=== PATIENT | male | born 1975 | race African-American/Black ===

== ENCOUNTER 2016-06-28 21:31 | Inpatient (IN) | payer MEDICAID ==
[~2016-06-28] VITALS: Ht 180.3 cm; Wt 81.0 kg
[2016-06-28 21:35] VITALS: O2SAT 100
[2016-06-28] MEDS ORDERED: MIDAZOLAM HCL 5 MG/ML VIAL (1 ML) ONE (21:38)
[2016-06-28] MEDS ORDERED: MORPHINE SULFATE 8 MG/ML INJ ONE (21:38)
[2016-06-28 21:45] VITALS: O2SAT 100
[2016-06-28] MEDS ORDERED: fentaNYL DRIP 250 ML ONE (21:50)
[2016-06-28] MEDS ORDERED: MIDAZOLAM 100 MG/ML INJ 100 ML ONE (21:50)
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
[2016-06-28 21:55] VITALS: O2SAT 100
[2016-06-28] MEDS ORDERED: HEPARIN SODIUM - SQ 10,000 UNITS/ML VIAL ONE (21:56)
[2016-06-28 22:10] LABS: I-STAT POTASSIUM 3.4 MMOL/L (3.5-4.9); I-STAT SODIUM 139 MMOL/L (138-146)
[2016-06-28 22:13] LABS: AUTOMATED NEUTROPHIL # 2.3 TH/MM3 (1.8-7.7); BASOPHIL % 0.4 % (0.0-2.0); EOSINOPHIL # 0.2 TH/MM3 (0-0.4); EOSINOPHIL % 3.3 % (0.0-4.0); HEMATOCRIT 34.5 % (39.0-51.0); HEMO FLAGS DIFF FINAL; LYMPH % 43.4 % (9.0-44.0); LYMPHOCYTE # 2.4 TH/MM3 (1.0-4.8); MEAN CELL VOLUME 88.6 FL (80.0-100.0); MEAN CORPUSCULAR HEMOGLOBIN 30.3 PG (27.0-34.0); MEAN CORPUSCULAR HGB CONC 34.1 % (32.0-36.0); MONO % 10.7 % (0.0-8.0); NEUT % 42.2 % (16.0-70.0); PLATELET COUNT 183 TH/MM3 (150-450); RED BLOOD COUNT 3.89 MIL/MM3 (4.50-5.90); RED CELL DISTRIBUTION WIDTH 13.5 % (11.6-17.2); WHITE BLOOD COUNT 5.5 TH/MM3 (4.0-11.0)
[2016-06-28 22:20] VITALS: O2SAT 100
[2016-06-28 22:30] LABS: APTT (PATIENT) 24.3 SEC (24.3-30.1); INTERNATIONAL NORMALIZED RATIO 1.1 RATIO; PROTHROMBIN TIME - PATIENT 12.3 SEC (9.8-11.6)
[2016-06-28] MEDS ORDERED: ROCURONIUM INJ 50 MG/5 ML VIAL ONE ×2 (22:34→22:59)
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
[2016-06-28] MEDS ORDERED: IOHEXOL 350 MG/ML 10 ML VIAL (for RAD DIAG) IV ONE (22:51)
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
[2016-06-28] MEDS ORDERED: ceFAZolin 2 GM PREMIX 50 ML IV STA (23:11)
[2016-06-28] MEDS ORDERED: DIPHTH/TETANUS/ACEL PERTUSSIS (BOOSTER) 0.5 ML VIAL/PFS IM ONE (23:11)
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
[2016-06-28 23:15] VITALS: BP 140/80; PULSE 96; PULSE 97; RESP 16; TEMP 95.7; O2SAT 98
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
[2016-06-28] MEDS ORDERED: LORazepam 2 MG/ML VIAL IV PRN (23:30)
[2016-06-28] MEDS ORDERED: SODIUM CHLORIDE 0.9% FLUSH 5 ML FLUSH IV FLUSH PRN (23:30)
[2016-06-28] MEDS ORDERED: MORPHINE SULFATE 4 MG/ML INJ IV PRN (23:30)
[2016-06-28] MEDS ORDERED: MISCELLANEOUS NURSING INFORMATION XX SCH (23:30)
[2016-06-28] MEDS ORDERED: METOCLOPRAMIDE HCL 10 MG/2 ML VIAL IV PRN (23:30)
[2016-06-28] MEDS ORDERED: CHLORHEXIDINE GLUCONATE 2 % 1 PACK (2 CLOTHS) TOP PRN (23:30)
[2016-06-28] MEDS ORDERED: SUCCINYLCHOLINE CHLORIDE 200 MG/10 ML VIAL ONE (23:39)
[2016-06-28] MEDS ORDERED: ETOMIDATE 20 MG/10 ML VIAL ONE (23:40)
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
--- NOTE | 2016-06-28 23:54 | PD.OP ---
cc: Juvenal Sher MD Operative Report Date of Surgery: Jun 28, 2016 Preoperative Diagnosis: Bilateral pneumothorax Postoperative Diagnosis: Same plus left hemopneumothorax Procedure: Insertion of bilateral tube thoracostomies Anesthesia: Sedation with local 1% Xylocaine Surgeon: Juvenal Sher Deputy Coroner(s): None Operation and Findings: 450 cc of johanny dark red blood removed through chest tube on left chest Patient prepped draped usual sterile fashion adequate local anesthetic was induced left chest tube was placed first on the level of the areola approximately 450 cc of dark red blood came out under pressure when the tube was placed into the left chest cavity. The tube was then secured using 0 silk. Tension was then placed to the right chest. An incision again was made in neurologic fashion at the level of the areola and all the tube was placed into the chest 32 Turkish chest tubes were used on both sides. Was then advanced the wish of air was noted. The tube was then secured using a 0 silk. Chest x-ray taken showed good placement of both tubes. Patient tolerated procedure well. Juvenal Sher MD Jun 28, 2016 23:54
[2016-06-29] VITALS (26 sets, daily range): BP systolic 75–130; BP diastolic 49–62; PULSE 62–112; RESP 16–23; TEMP 94.8–101.8; O2SAT 94–100
[2016-06-29] LABS: BLOOD, URINE NEG (NEG); GLUCOSE,URINE NEG (NEG); KETONE, URINE NEG (NEG); MUCUS URINE FEW /lpf (OCC); NITRITE,URINE NEG (NEG); PH, URINE 6.5 (5.0-8.5); SQUAMOUS EPITHELIAL CELL URINE <1 /hpf (0-5); URINE COLOR LIGHT-YELLOW (YELLW/STRAW)
[2016-06-29 00:01] LABS: COMMENT (UR) CATH-CULT NOT IND; CULTURE IF INDICATED CATH CULTURE NOT IND
[2016-06-29 00:09] LABS: AMPHETAMINE, URINE NEG (NEG); BARBITURATES, URINE NEG (NEG); COCAINE, URINE NEG (NEG)
[2016-06-29 00:18] LABS: BLOOD GAS BASE EXCESS -4.7 mmol/L (-2-2); BLOOD GAS CARBOXYHEMOGLOBIN 3.5 % (0-4); BLOOD GAS HCO3 20 mmol/L (22-26); BLOOD GAS METHEMOGLOBIN 0.7 % (0-2); BLOOD GAS O2 HGB SATURATION 94 % (90-100); BLOOD GAS OXYGEN CONTENT 16.2 Vol % (12.0-20.0); BLOOD GAS PCO2 34 mmHg (38-42); BLOOD GAS PO2 110 mmHg (61-120); BLOOD GAS TOTAL HGB 12.2 G/DL (12.0-16.0); TEMP CORR TO 98.6
[2016-06-29 00:19] LABS: CRITICAL VALUE NO; DRAW SITE RT RADIAL; FIO2 100 %; NUMBER OF ARTERIAL PUNCTURES 1; OXYGEN DEVICE VENTILATOR; STAT NO; VENT SETTINGS AC550/16/PEEP10
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
--- NOTE | 2016-06-29 00:50 | PD.PROCEDR ---
Procedure Note Procedure ARTERIAL LINE PLACEMENT Date:06/29/2016 Time: 1205 Indication: Hemodynamic monitoring A time-out was completed verifying correct patient, procedure, site, positioning , and special equipment if applicable. Allens test was performed to ensure adequate perfusion. The patients right wrist was prepped and draped in sterile fashion. 1% Lidocaine was used to anesthetize the area. A 20G Arrow arterial line was introduced into the radial artery. The catheter was threaded over the guide wire and the needle was removed with appropriate pulsatile blood return. The catheter was then sutured in place to the skin and a sterile dressing applied. Perfusion to the extremity distal to the point of catheter insertion was checked and found to be adequate. Estimated Blood Loss: 0.5ml The patient tolerated the procedure well and there were no complications. Issac Chamorro MD Jun 29, 2016 00:50
[2016-06-29 00:53] LABS: HEMATOCRIT 36.7 % (39.0-51.0); MEAN CELL VOLUME 88.3 FL (80.0-100.0); MEAN CORPUSCULAR HEMOGLOBIN 30.1 PG (27.0-34.0); MEAN CORPUSCULAR HGB CONC 34.1 % (32.0-36.0); PLATELET COUNT 134 TH/MM3 (150-450); RED BLOOD COUNT 4.16 MIL/MM3 (4.50-5.90); RED CELL DISTRIBUTION WIDTH 13.2 % (11.6-17.2); REVIEW FLAG FINAL
[2016-06-29 01:13] LABS: ALT (GPT) 16 U/L (12-78); ANION GAP 11 MEQ/L (5-15); AST (GOT) 16 U/L (15-37); BICARBONATE 23.7 MEQ/L (21.0-32.0); BLOOD UREA NITROGEN 4 MG/DL (7-18); CHLORIDE 104 MEQ/L (98-107); GLOMERULAR FILTRATION RATE 73 ML/MIN (>89); POTASSIUM 3.1 MEQ/L (3.5-5.1); SODIUM (NA) 139 MEQ/L (136-145)
[2016-06-29 01:15] LABS: ALKALINE PHOSPHATASE 85 U/L (45-117); TOTAL BILIRUBIN ADULT 0.6 MG/DL (0.2-1.0)
[2016-06-29] MEDS: SODIUM CHLOR 0.9% 1000 ML INJ 1,000 ML IV SCH ×4 (01:23→20:10)
[2016-06-29] MEDS: DOCUSATE SODIUM 100 MG/10 ML UDC G-TUBE SCH ×3 (01:23→20:11)
[2016-06-29] MEDS: CHLORHEXIDINE GLUCONATE 2 % 1 PACK (2 CLOTHS) TOP SCH (03:59)
[2016-06-29] MEDS: ALBUMIN HUMAN 25% 12.5 GM/50 ML BAGP IV SCH ×2 (04:30→08:43)
[2016-06-29 04:32] LABS: AUTOMATED NEUTROPHIL # 8.1 TH/MM3 (1.8-7.7); BASOPHIL % 0.4 % (0.0-2.0); EOSINOPHIL % 0.1 % (0.0-4.0); HEMATOCRIT 38.6 % (39.0-51.0); HEMO FLAGS DIFF FINAL; LYMPH % 9.2 % (9.0-44.0); LYMPHOCYTE # 0.9 TH/MM3 (1.0-4.8); MEAN CELL VOLUME 84.9 FL (80.0-100.0); MEAN CORPUSCULAR HEMOGLOBIN 29.5 PG (27.0-34.0); MEAN CORPUSCULAR HGB CONC 34.7 % (32.0-36.0); MONO % 6.5 % (0.0-8.0); NEUT % 83.8 % (16.0-70.0); PLATELET COUNT 122 TH/MM3 (150-450); RED BLOOD COUNT 4.55 MIL/MM3 (4.50-5.90); RED CELL DISTRIBUTION WIDTH 14.7 % (11.6-17.2); WHITE BLOOD COUNT 9.6 TH/MM3 (4.0-11.0)
[2016-06-29 04:57] LABS: ANION GAP 11 MEQ/L (5-15); AST (GOT) 21 U/L (15-37); BICARBONATE 24.1 MEQ/L (21.0-32.0); BLOOD UREA NITROGEN 6 MG/DL (7-18); CHLORIDE 108 MEQ/L (98-107); GLOMERULAR FILTRATION RATE 67 ML/MIN (>89); POTASSIUM 3.2 MEQ/L (3.5-5.1); SODIUM (NA) 143 MEQ/L (136-145)
[2016-06-29 04:59] LABS: ALKALINE PHOSPHATASE 76 U/L (45-117); ALT (GPT) 18 U/L (12-78); TOTAL BILIRUBIN ADULT 0.8 MG/DL (0.2-1.0)
[2016-06-29] MEDS ORDERED: POTASSIUM CL 40 MEQ/30 ML LIQ UDC PO/TUBE PRN ×2 (07:45)
[2016-06-29] MEDS ORDERED: MAGNESIUM SULFATE INJ 4 GM in SODIUM CHLORIDE 0.9% INJ 92 ML IV PRN (07:45)
[2016-06-29] MEDS ORDERED: POTASSIUM PHOSPHATE MONOBASIC 500 MG TAB PO/TUBE PRN (07:45)
[2016-06-29] MEDS ORDERED: MAGNESIUM SULFATE INJ 2 GM in SODIUM CHLORIDE 0.9% INJ 96 ML IV PRN (07:45)
[2016-06-29] MEDS ORDERED: SODIUM PHOSPHATE INJ 30 MMOL in SODIUM CHLOR 0.9% 250 ML INJ 240 ML IV PRN (07:45)
[2016-06-29] MEDS ORDERED: POTASSIUM PHOSPHATE MONOBASIC 500 MG TAB PO PRN (07:45)
[2016-06-29] MEDS ORDERED: POTASSIUM CHLOR 20 MEQ PREMIX 100 ML IV PRN ×2 (07:45)
[2016-06-29] MEDS ORDERED: POTASSIUM CHLOR 40 MEQ PREMIX 100 ML IV PRN ×2 (07:45)
[2016-06-29] MEDS ORDERED: MAGNESIUM OXIDE 400 MG TAB PO PRN (07:45)
[2016-06-29] MEDS: CHLORHEXIDINE 0.12% (ORAL KIT) 15 ML CUP MT SCH ×2 (08:00→20:11)
[2016-06-29] MEDS: MAGNESIUM HYDROXIDE SUSP 30 ML CUP PO SCH (08:35)
[2016-06-29] MEDS: ARTIFICIAL TEARS OPTH SOLN 15 ML BTL EACH EYE SCH ×3 (08:41→18:02)
[2016-06-29] MEDS: fentaNYL DRIP 250 ML IV SCH ×2 (08:42→23:20)
[2016-06-29] MEDS: FAMOTIDINE 20 MG/2 ML VIAL IV PUSH SCH ×2 (08:42→20:11)
[2016-06-29] MEDS: MIDAZOLAM 100 MG/ML INJ 100 ML IV SCH ×2 (08:42→23:19)
[2016-06-29] MEDS: SODIUM CHLORIDE 0.9% FLUSH 5 ML FLUSH IV FLUSH SCH ×2 (08:43→20:12)
[2016-06-29] MEDS: ENOXAPARIN SODIUM 40 MG/0.4 ML SYRINGE SQ SCH (10:13)
[2016-06-29] MEDS: POTASSIUM PHOSPHATE INJ 30 MMOL in SODIUM CHLOR 0.9% 250 ML INJ 250 ML IV PRN (10:13)
[2016-06-29 10:40] LABS: BLOOD GAS BASE EXCESS -1.7 mmol/L (-2-2); BLOOD GAS CARBOXYHEMOGLOBIN 1.5 % (0-4); BLOOD GAS HCO3 21 mmol/L (22-26); BLOOD GAS METHEMOGLOBIN 0.8 % (0-2); BLOOD GAS O2 HGB SATURATION 97 % (90-100); BLOOD GAS OXYGEN CONTENT 18.1 Vol % (12.0-20.0); BLOOD GAS PCO2 29 mmHg (38-42); BLOOD GAS PO2 119 mmHg (61-120); BLOOD GAS TOTAL HGB 13.2 G/DL (12.0-16.0); CRITICAL VALUE NO; OXYGEN DEVICE VENT; TEMP CORR TO 98.6
[2016-06-29 10:41] LABS: DRAW SITE ALINE; FIO2 45 %; STAT NO; VENT SETTINGS AC/650/16/5PEEP
[2016-06-29] MEDS: ACETAMINOPHEN 325 MG TAB PO PRN ×2 (12:51→20:11)
[2016-06-29] MEDS ORDERED: SODIUM CHLOR 0.9% 1000 ML INJ 1,000 ML IV ONE (14:15)
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
[2016-06-29 22:27] LABS: POTASSIUM 3.3 MEQ/L (3.5-5.1)
[2016-06-29] MEDS: RESP: ALBUTEROL 2.5 MG/IPRATROPIUM 0.5 MG NEB (SCH) NEB (22:28)
[2016-06-30] VITALS (18 sets, daily range): BP systolic 97–124; BP diastolic 51–68; PULSE 68–100; RESP 14–16; TEMP 98.4–100.4; O2SAT 94–100
[2016-06-30] MEDS: SODIUM CHLOR 0.9% 1000 ML INJ 1,000 ML IV SCH ×4 (03:22→22:27)
[2016-06-30] MEDS: CHLORHEXIDINE GLUCONATE 2 % 1 PACK (2 CLOTHS) TOP SCH (03:22)
[2016-06-30 03:51] LABS: HEMATOCRIT 37.4 % (39.0-51.0); MEAN CELL VOLUME 85.3 FL (80.0-100.0); MEAN CORPUSCULAR HEMOGLOBIN 29.6 PG (27.0-34.0); MEAN CORPUSCULAR HGB CONC 34.7 % (32.0-36.0); PLATELET COUNT 100 TH/MM3 (150-450); RED BLOOD COUNT 4.38 MIL/MM3 (4.50-5.90); RED CELL DISTRIBUTION WIDTH 14.7 % (11.6-17.2); REVIEW FLAG FINAL; WHITE BLOOD COUNT 8.1 TH/MM3 (4.0-11.0)
[2016-06-30] MEDS: RESP: ALBUTEROL 2.5 MG/IPRATROPIUM 0.5 MG NEB (SCH) NEB ×4 (03:56→21:58)
[2016-06-30 04:10] LABS: MAGNESIUM 1.3 MG/DL (1.5-2.5); POTASSIUM 3.2 MEQ/L (3.5-5.1)
[2016-06-30 04:26] LABS: INTERNATIONAL NORMALIZED RATIO 1.4 RATIO; PROTHROMBIN TIME - PATIENT 15.4 SEC (9.8-11.6)
[2016-06-30] MEDS: POTASSIUM PHOSPHATE INJ 30 MMOL in SODIUM CHLOR 0.9% 250 ML INJ 250 ML IV PRN (05:03)
--- NOTE | 2016-06-30 05:44 | RADRPT ---
EXAM DATE/TIME: 06/30/2016 03:47 [facility] COMPARISON: CHEST SINGLE AP, June 28, 2016, 21:55. INDICATIONS : Shortness of breath. MEDICAL HISTORY : Unobtainable. SURGICAL HISTORY : Unobtainable. ENCOUNTER: Subsequent ACUITY: 3 days PAIN SCORE: Non-responsive. LOCATION: Bilateral chest FINDINGS: A single view of the chest demonstrates left midlung and left basilar density. Slight elevation right hemidiaphragm with bibasilar density. Bilateral chest tubes are again seen. No pneumothorax. The end otracheal tube is unchanged. Nasogastric tube with tip in stomach. Rib fractures are seen. CONCLUSION: 1. Left basilar contusion. 2. Probable atelectasis right lower lobe. 3. Bilateral chest tubes without pneumothorax. Rajat Baptiste MD on June 30, 2016 at 5:38 Board Certified Radiologist. This report was verified electronically.
[2016-06-30 05:48] LABS: BLOOD GAS CARBOXYHEMOGLOBIN 1.1 % (0-4); BLOOD GAS HCO3 18 mmol/L (22-26); BLOOD GAS METHEMOGLOBIN 0.7 % (0-2); BLOOD GAS O2 HGB SATURATION 96 % (90-100); BLOOD GAS OXYGEN CONTENT 17.3 Vol % (12.0-20.0); BLOOD GAS PCO2 27 mmHg (38-42); BLOOD GAS PO2 92 mmHg (61-120); BLOOD GAS TOTAL HGB 12.8 G/DL (12.0-16.0); CRITICAL VALUE NO; OXYGEN DEVICE VENTILATOR; TEMP CORR TO 98.6
[2016-06-30 05:49] LABS: FIO2 40 %; VENT SETTINGS PRVC
[2016-06-30 05:50] LABS: DRAW SITE ART LINE; STAT NO
[2016-06-30] MEDS: CHLORHEXIDINE 0.12% (ORAL KIT) 15 ML CUP MT SCH ×2 (08:00→20:09)
[2016-06-30] MEDS: DOCUSATE SODIUM 100 MG/10 ML UDC G-TUBE SCH ×2 (08:16→20:10)
[2016-06-30] MEDS: FAMOTIDINE 20 MG/2 ML VIAL IV PUSH SCH ×2 (08:16→20:10)
[2016-06-30] MEDS: MAGNESIUM HYDROXIDE SUSP 30 ML CUP PO SCH (08:16)
[2016-06-30] MEDS: ARTIFICIAL TEARS OPTH SOLN 15 ML BTL EACH EYE SCH ×3 (08:17→17:10)
[2016-06-30] MEDS: SODIUM CHLORIDE 0.9% FLUSH 5 ML FLUSH IV FLUSH SCH ×2 (08:17→20:10)
[2016-06-30] MEDS ORDERED: ATRITAB PO (10:19)
[2016-06-30] MEDS ORDERED: FLUC200T2 PO (10:19)
[2016-06-30] MEDS ORDERED: MULT1CHW70 (10:19)
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
[2016-06-30] MEDS: ENOXAPARIN SODIUM 40 MG/0.4 ML SYRINGE SQ SCH (12:55)
[2016-06-30] MEDS ORDERED: NON-FORMULARY DRUG (Efavirenz-Emtricitabine-Tenofovir (Atripla) 1 TAB) PO SCH (13:00)
--- NOTE | 2016-06-30 13:28 | RADRPT ---
EXAM DATE/TIME: 06/30/2016 11:48 [facility] COMPARISON: CHEST SINGLE AP, June 30, 2016, 3:47. INDICATIONS : Central line placement. MEDICAL HISTORY : None. SURGICAL HISTORY : None. ENCOUNTER: Initial ACUITY: 1 day PAIN SCORE: Non-responsive. LOCATION: Bilateral chest FINDINGS: Left sided chest tube is with out definite pneumothorax. Endotracheal tube tip at inferior margin of the clavicles. Right subclavian line tip overlies the expected location right atrium. Right basilar c hest tube and NG tube are noted. There is consolidation bilaterally and bilateral effusions are suspe cted. Overall no significant interval change. CONCLUSION: Right subclavian line placement. Jarrett Cronin MD on June 30, 2016 at 13:26 Board Certified Radiologist. This report was verified electronically.
[2016-06-30] MEDS ORDERED: EMTRICITABINE/TENOFOVIR 200 MG/300 MG TAB PO SCH (14:00)
[2016-06-30] MEDS: FLUCONAZOLE 200 MG TAB PO SCH (14:42)
[2016-06-30] MEDS: SULFAMETHOXAZOLE-TRIMETHOPRIM 400-80 MG TAB PO SCH (14:43)
[2016-06-30] MEDS: MIDAZOLAM 100 MG/ML INJ 100 ML IV SCH (15:56)
[2016-06-30] MEDS: fentaNYL DRIP 250 ML IV SCH (15:56)
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
[2016-06-30 22:55] LABS: MAGNESIUM 1.7 MG/DL (1.5-2.5); POTASSIUM 3.3 MEQ/L (3.5-5.1)
[2016-07-01] VITALS (17 sets, daily range): BP systolic 102–115; BP diastolic 47–57; PULSE 92–105; RESP 16–18; TEMP 99.3–100; O2SAT 95–100
[2016-07-01] MEDS: CHLORHEXIDINE GLUCONATE 2 % 1 PACK (2 CLOTHS) TOP SCH (04:00)
[2016-07-01 04:27] LABS: HEMATOCRIT 34.6 % (39.0-51.0); MEAN CELL VOLUME 86.2 FL (80.0-100.0); MEAN CORPUSCULAR HEMOGLOBIN 29.7 PG (27.0-34.0); MEAN CORPUSCULAR HGB CONC 34.4 % (32.0-36.0); PLATELET COUNT 83 TH/MM3 (150-450); RED BLOOD COUNT 4.02 MIL/MM3 (4.50-5.90); RED CELL DISTRIBUTION WIDTH 14.7 % (11.6-17.2)
[2016-07-01 04:33] LABS: REVIEW FLAG FINAL
[2016-07-01] MEDS: RESP: ALBUTEROL 2.5 MG/IPRATROPIUM 0.5 MG NEB (SCH) NEB ×4 (04:39→21:55)
[2016-07-01] MEDS: SODIUM CHLOR 0.9% 1000 ML INJ 1,000 ML IV SCH (04:46)
[2016-07-01] MEDS: POTASSIUM PHOSPHATE INJ 30 MMOL in SODIUM CHLOR 0.9% 250 ML INJ 250 ML IV PRN (04:47)
[2016-07-01 04:48] LABS: BICARBONATE 19.9 MEQ/L (21.0-32.0); MAGNESIUM 1.8 MG/DL (1.5-2.5); POTASSIUM 3.2 MEQ/L (3.5-5.1)
[2016-07-01 04:54] LABS: BLOOD GAS BASE EXCESS -4.4 mmol/L (-2-2); BLOOD GAS HCO3 19 mmol/L (22-26); BLOOD GAS METHEMOGLOBIN 0.7 % (0-2); BLOOD GAS O2 HGB SATURATION 96 % (90-100); BLOOD GAS PCO2 29 mmHg (38-42); BLOOD GAS PO2 105 mmHg (61-120); BLOOD GAS TOTAL HGB 11.7 G/DL (12.0-16.0); CRITICAL VALUE NO; OXYGEN DEVICE VENTILATOR; TEMP CORR TO 98.6
[2016-07-01 04:55] LABS: DRAW SITE ART LINE; FIO2 40 %; NUMBER OF ARTERIAL PUNCTURES 0; STAT NO; ULNAR PULSE PRESENT
--- NOTE | 2016-07-01 05:01 | RADRPT ---
EXAM DATE/TIME: 07/01/2016 03:09 [facility] COMPARISON: CHEST SINGLE AP, June 30, 2016, 11:48. INDICATIONS : Shortness of breath. MEDICAL HISTORY : Unobtainable. SURGICAL HISTORY : Unobtainable. ENCOUNTER: Subsequent ACUITY: 4 - 6 days PAIN SCORE: Non-responsive. LOCATION: Bilateral chest FINDINGS: A single view of the chest demonstrates patchy perihilar infiltrates most in the lung bases left grea ter than right. Similar to the previous study. The endotracheal tube and right subclavian central tye e are in good position. NG tube. Bilateral chest tubes is in good position . Osseous structures are i ntact. CONCLUSION: Bilateral chest tubes are in good position. Endotracheal tube central line in good position. Persist ent patchy infiltrates left greater than right. Larry Pulido MD on July 01, 2016 at 4:57 Board Certified Radiologist. This report was verified electronically.
[2016-07-01 05:15] LABS: CALCIUM-PROTEIN CORRECTED 8.4 MG/DL (8.5-10.1)
[2016-07-01] MEDS: CHLORHEXIDINE 0.12% (ORAL KIT) 15 ML CUP MT SCH ×2 (08:00→20:00)
[2016-07-01] MEDS ORDERED: LACTULOSE SYRUP 20 GM/30 ML CUP PO ONE (08:00)
[2016-07-01] MEDS: ARTIFICIAL TEARS OPTH SOLN 15 ML BTL EACH EYE SCH ×3 (09:00→17:03)
[2016-07-01] MEDS: FAMOTIDINE 20 MG/2 ML VIAL IV PUSH SCH ×2 (09:14→21:49)
[2016-07-01] MEDS: FLUCONAZOLE 200 MG TAB PO SCH (09:14)
[2016-07-01] MEDS: fentaNYL DRIP 250 ML IV SCH (09:14)
[2016-07-01] MEDS: MAGNESIUM HYDROXIDE SUSP 30 ML CUP PO SCH (09:14)
[2016-07-01] MEDS: SULFAMETHOXAZOLE-TRIMETHOPRIM 400-80 MG TAB PO SCH (09:14)
[2016-07-01] MEDS: DOCUSATE SODIUM 100 MG/10 ML UDC G-TUBE SCH ×2 (09:14→21:48)
[2016-07-01] MEDS: ENOXAPARIN SODIUM 40 MG/0.4 ML SYRINGE SQ SCH (09:15)
[2016-07-01] MEDS: SODIUM CHLORIDE 0.9% FLUSH 5 ML FLUSH IV FLUSH SCH ×2 (09:15→21:49)
[2016-07-01] MEDS ORDERED: FUROSEMIDE 40 MG/4 ML VIAL IV PUSH ONE (09:45)
[2016-07-01] MEDS ORDERED: POTASSIUM CHLORIDE 20 MEQ CONTROLLED RELEASE TAB PO ONE (09:45)
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
[2016-07-01 19:36] LABS: POTASSIUM 3.3 MEQ/L (3.5-5.1)
[2016-07-02] VITALS (17 sets, daily range): BP systolic 97–116; BP diastolic 55–68; PULSE 94–115; RESP 16–21; TEMP 97.2–100; O2SAT 93–99
[2016-07-02] MEDS: RESP: ALBUTEROL 2.5 MG/IPRATROPIUM 0.5 MG NEB (SCH) NEB ×4 (03:28→20:08)
[2016-07-02] MEDS: CHLORHEXIDINE GLUCONATE 2 % 1 PACK (2 CLOTHS) TOP SCH (04:00)
[2016-07-02 04:31] LABS: HEMATOCRIT 34.4 % (39.0-51.0); MEAN CELL VOLUME 85.9 FL (80.0-100.0); MEAN CORPUSCULAR HEMOGLOBIN 29.6 PG (27.0-34.0); MEAN CORPUSCULAR HGB CONC 34.5 % (32.0-36.0); PLATELET COUNT 83 TH/MM3 (150-450); RED BLOOD COUNT 4.01 MIL/MM3 (4.50-5.90); WHITE BLOOD COUNT 7.1 TH/MM3 (4.0-11.0)
[2016-07-02 04:33] LABS: REVIEW FLAG FINAL
[2016-07-02 04:35] LABS: BLOOD GAS BASE EXCESS -4.5 mmol/L (-2-2); BLOOD GAS CARBOXYHEMOGLOBIN 0.9 % (0-4); BLOOD GAS HCO3 19 mmol/L (22-26); BLOOD GAS METHEMOGLOBIN 0.8 % (0-2); BLOOD GAS O2 HGB SATURATION 97 % (90-100); BLOOD GAS OXYGEN CONTENT 16.5 Vol % (12.0-20.0); BLOOD GAS PCO2 31 mmHg (38-42); BLOOD GAS PO2 110 mmHg (61-120); BLOOD GAS TOTAL HGB 12.1 G/DL (12.0-16.0); CRITICAL VALUE NO; TEMP CORR TO 98.6
[2016-07-02 04:36] LABS: DRAW SITE ALINE; FIO2 40 %
[2016-07-02 05:03] LABS: BICARBONATE 20.7 MEQ/L (21.0-32.0); MAGNESIUM 1.9 MG/DL (1.5-2.5); POTASSIUM 3.6 MEQ/L (3.5-5.1)
--- NOTE | 2016-07-02 05:49 | RADRPT ---
EXAM DATE/TIME: 07/02/2016 04:16 [facility] COMPARISON: CHEST SINGLE AP, July 01, 2016, 3:09. INDICATIONS : Shortness of breath. MEDICAL HISTORY : Unobtainable. SURGICAL HISTORY : Unobtainable. ENCOUNTER: Subsequent ACUITY: 4 - 6 days PAIN SCORE: Non-responsive. LOCATION: Bilateral chest FINDINGS: 2 portable frontal views the chest show a right-sided central line, nasogastric tube, endotracheal tu be, and bilateral thoracostomy tubes. No pneumothorax. A left lower lobe infiltrate and small left ef fusion are stable. Right lung is clear. Heart is normal in size. A left clavicular fracture is questi oned. CONCLUSION: 1. Left pleural effusion and left lower lobe consolidation are stable. 2. Lines and tubes. 3. No pneumothorax. Clarence Bridges Jr., MD on July 02, 2016 at 5:46 Board Certified Radiologist. This report was verified electronically.
[2016-07-02] MEDS: fentaNYL DRIP 250 ML IV SCH (07:10)
[2016-07-02] MEDS ORDERED: BISACODYL 10 MG SUPP RECTAL ONE (08:00)
[2016-07-02] MEDS: FLUCONAZOLE 200 MG TAB PO SCH (08:19)
[2016-07-02] MEDS: DOCUSATE SODIUM 100 MG/10 ML UDC G-TUBE SCH ×2 (08:19→20:43)
[2016-07-02] MEDS: FAMOTIDINE 20 MG/2 ML VIAL IV PUSH SCH ×2 (08:19→20:43)
[2016-07-02] MEDS: MAGNESIUM HYDROXIDE SUSP 30 ML CUP PO SCH (08:19)
[2016-07-02] MEDS: SULFAMETHOXAZOLE-TRIMETHOPRIM 400-80 MG TAB PO SCH (08:19)
[2016-07-02] MEDS: ARTIFICIAL TEARS OPTH SOLN 15 ML BTL EACH EYE SCH ×3 (08:20→17:04)
[2016-07-02] MEDS: CHLORHEXIDINE 0.12% (ORAL KIT) 15 ML CUP MT SCH ×2 (08:20→20:44)
[2016-07-02] MEDS: SODIUM CHLORIDE 0.9% FLUSH 5 ML FLUSH IV FLUSH SCH ×2 (08:20→20:44)
[2016-07-02] MEDS ORDERED: BUPIVACAINE HCL PF 0.25% 30 ML VIAL ONE (08:30)
[2016-07-02] MEDS ORDERED: GENTAMICIN SULFATE 80 MG/2 ML VIAL ONE (08:31)
[2016-07-02] MEDS ORDERED: ceFAZolin INJ 1,000 MG VIAL ONE (08:31)
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
[2016-07-02] MEDS: ENOXAPARIN SODIUM 40 MG/0.4 ML SYRINGE SQ SCH (10:00)
--- NOTE | 2016-07-02 12:29 | RADRPT ---
EXAM DATE/TIME: 07/02/2016 11:50 [facility] COMPARISON: No previous studies available for comparison. INDICATIONS : S/p chest tube placementand endotrachial tube placement. MEDICAL HISTORY : None. SURGICAL HISTORY : None. ENCOUNTER: Initial ACUITY: 3 days PAIN SCORE: Non-responsive. LOCATION: Bilateral chest FINDINGS: There is upper lobe consolidation now seen with left midlung consolidative opacity or left-sided ches t tube is noted tip projecting at the apex. There may be a tiny pneumothorax at the left base with ad jacent soft tissue emphysema. Right subclavian line tip overlies the SVC. Endotracheal tube tip at th e inferior margin of the clavicles. NG tube side-port just beyond the EG junction. CONCLUSION: Increasing consolidative opacity bilaterally with possible tiny left-sided pneumothorax. Jarrett Cronin MD on July 02, 2016 at 12:26 Board Certified Radiologist. This report was verified electronically.
[2016-07-02] MEDS: MIDAZOLAM 100 MG/ML INJ 100 ML IV SCH (15:01)
[2016-07-02] MEDS ORDERED: PHENYLEPH/NS 1000 MCG/10 ML SYR IV ONE (15:33)
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
--- NOTE | 2016-07-02 17:48 | EKG ---
Date Performed: 07/02/2016 Time Performed: 04:13:14 PTAGE: 40 years EKG: Sinus rhythm Normal ECG NO PREVIOUS TRACING DOCTOR: Dionne Farmer Interpretating Date/Time 07/02/2016 17:45:48
[2016-07-03] VITALS (18 sets, daily range): BP systolic 107–116; BP diastolic 59–63; PULSE 104–114; RESP 16; TEMP 99.9–100.8; O2SAT 97–100
[2016-07-03] MEDS: RESP: ALBUTEROL 2.5 MG/IPRATROPIUM 0.5 MG NEB (SCH) NEB ×4 (03:10→20:40)
[2016-07-03] MEDS: CHLORHEXIDINE GLUCONATE 2 % 1 PACK (2 CLOTHS) TOP SCH (04:00)
[2016-07-03 05:08] LABS: HEMATOCRIT 35.3 % (39.0-51.0); MEAN CELL VOLUME 86.7 FL (80.0-100.0); MEAN CORPUSCULAR HEMOGLOBIN 29.8 PG (27.0-34.0); MEAN CORPUSCULAR HGB CONC 34.4 % (32.0-36.0); PLATELET COUNT 103 TH/MM3 (150-450); RED BLOOD COUNT 4.07 MIL/MM3 (4.50-5.90); RED CELL DISTRIBUTION WIDTH 14.8 % (11.6-17.2); REVIEW FLAG FINAL; WHITE BLOOD COUNT 9.1 TH/MM3 (4.0-11.0)
[2016-07-03 05:29] LABS: BICARBONATE 22.3 MEQ/L (21.0-32.0); POTASSIUM 3.8 MEQ/L (3.5-5.1)
[2016-07-03 05:44] LABS: BLOOD GAS BASE EXCESS -3.4 mmol/L (-2-2); BLOOD GAS HCO3 20 mmol/L (22-26); BLOOD GAS METHEMOGLOBIN 0.8 % (0-2); BLOOD GAS O2 HGB SATURATION 96 % (90-100); BLOOD GAS OXYGEN CONTENT 16.5 Vol % (12.0-20.0); BLOOD GAS PCO2 34 mmHg (38-42); BLOOD GAS PO2 121 mmHg (61-120); BLOOD GAS TOTAL HGB 12.1 G/DL (12.0-16.0); CRITICAL VALUE NO; DRAW SITE ART LINE; FIO2 50 %; OXYGEN DEVICE VENTILATOR; STAT NO; TEMP CORR TO 100.6; VENT SETTINGS PRVC/AC
--- NOTE | 2016-07-03 05:52 | RADRPT ---
EXAM DATE/TIME: 07/03/2016 04:34 [facility] COMPARISON: CHEST SINGLE AP, July 02, 2016, 11:50. INDICATIONS : Shortness of breath. MEDICAL HISTORY : None. SURGICAL HISTORY : None. ENCOUNTER: Subsequent ACUITY: 4 - 6 days PAIN SCORE: Non-responsive. LOCATION: Bilateral chest FINDINGS: A single portable frontal view of the chest shows an endotracheal tube with the tip approximately 4 c m from the fela. Left-sided thoracostomy tubes with the tips at the apex. Nasogastric tube courses off the inferior margin of the film. Right subclavian central line with the tip in the mid right atri um. No pneumothoraces. Scattered areas of consolidation. Within the left lung base this is more prono unced. Within the right lung base this is more pronounced. Within the right upper lobe this is improv ed. Heart is normal in size. CONCLUSION: 1. No pneumothorax. 2. Bibasilar consolidation is more pronounced while the right upper lobe consolidation has improved f rom the prior study. Clarence Bridges Jr., MD on July 03, 2016 at 5:49 Board Certified Radiologist. This report was verified electronically.
[2016-07-03] MEDS ORDERED: LACTULOSE SYRUP 20 GM/30 ML CUP PO ONE (08:00)
[2016-07-03] MEDS: CHLORHEXIDINE 0.12% (ORAL KIT) 15 ML CUP MT SCH ×2 (08:00→20:46)
[2016-07-03] MEDS: DOCUSATE SODIUM 100 MG/10 ML UDC G-TUBE SCH ×2 (09:00→20:45)
[2016-07-03] MEDS: ARTIFICIAL TEARS OPTH SOLN 15 ML BTL EACH EYE SCH ×3 (09:00→18:00)
[2016-07-03] MEDS: MAGNESIUM HYDROXIDE SUSP 30 ML CUP PO SCH (09:00)
[2016-07-03] MEDS: FLUCONAZOLE 200 MG TAB PO SCH (09:15)
[2016-07-03] MEDS: SULFAMETHOXAZOLE-TRIMETHOPRIM 400-80 MG TAB PO SCH (09:15)
[2016-07-03] MEDS: fentaNYL DRIP 250 ML IV SCH (09:16)
[2016-07-03] MEDS: MIDAZOLAM 100 MG/ML INJ 100 ML IV SCH (09:16)
[2016-07-03] MEDS: FAMOTIDINE 20 MG/2 ML VIAL IV PUSH SCH ×2 (09:16→20:45)
[2016-07-03] MEDS: SODIUM CHLORIDE 0.9% FLUSH 5 ML FLUSH IV FLUSH SCH ×2 (09:17→20:45)
[2016-07-03] MEDS: ENOXAPARIN SODIUM 40 MG/0.4 ML SYRINGE SQ SCH (09:18)
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
[2016-07-04] VITALS (18 sets, daily range): BP systolic 129–146; BP diastolic 64–79; PULSE 97–114; RESP 16–19; TEMP 99.4–101.1; O2SAT 93–98
[2016-07-04] MEDS: CHLORHEXIDINE GLUCONATE 2 % 1 PACK (2 CLOTHS) TOP SCH (04:00)
[2016-07-04 05:08] LABS: HEMATOCRIT 32.7 % (39.0-51.0); MEAN CELL VOLUME 86.3 FL (80.0-100.0); MEAN CORPUSCULAR HEMOGLOBIN 29.4 PG (27.0-34.0); MEAN CORPUSCULAR HGB CONC 34.1 % (32.0-36.0); PLATELET COUNT 107 TH/MM3 (150-450); RED BLOOD COUNT 3.79 MIL/MM3 (4.50-5.90); RED CELL DISTRIBUTION WIDTH 15.3 % (11.6-17.2); REVIEW FLAG FINAL; WHITE BLOOD COUNT 8.4 TH/MM3 (4.0-11.0)
[2016-07-04 05:36] LABS: BICARBONATE 22.4 MEQ/L (21.0-32.0); POTASSIUM 3.7 MEQ/L (3.5-5.1)
[2016-07-04 05:50] LABS: BLOOD GAS HCO3 23 mmol/L (22-26); BLOOD GAS METHEMOGLOBIN 0.8 % (0-2); BLOOD GAS O2 HGB SATURATION 95 % (90-100); BLOOD GAS OXYGEN CONTENT 15.6 Vol % (12.0-20.0); BLOOD GAS PCO2 38 mmHg (38-42); BLOOD GAS PO2 93 mmHg (61-120); BLOOD GAS TOTAL HGB 11.6 G/DL (12.0-16.0); CRITICAL VALUE NO; DRAW SITE ART LINE; FIO2 45 %; OXYGEN DEVICE VENTILATOR; STAT NO; TEMP CORR TO 98.6; VENT SETTINGS PRVC/AC
[2016-07-04] MEDS ORDERED: BISACODYL 10 MG SUPP RECTAL ONE (07:45)
[2016-07-04] MEDS: SODIUM CHLORIDE 0.9% FLUSH 5 ML FLUSH IV FLUSH SCH ×2 (08:51→21:01)
[2016-07-04] MEDS: CHLORHEXIDINE 0.12% (ORAL KIT) 15 ML CUP MT SCH ×2 (08:51→20:00)
[2016-07-04] MEDS: DOCUSATE SODIUM 100 MG/10 ML UDC G-TUBE SCH ×2 (08:52→21:00)
[2016-07-04] MEDS: FLUCONAZOLE 200 MG TAB PO SCH (08:52)
[2016-07-04] MEDS: MAGNESIUM HYDROXIDE SUSP 30 ML CUP PO SCH (08:52)
[2016-07-04] MEDS: ENOXAPARIN SODIUM 40 MG/0.4 ML SYRINGE SQ SCH (08:52)
[2016-07-04] MEDS: SULFAMETHOXAZOLE-TRIMETHOPRIM 400-80 MG TAB PO SCH (08:52)
[2016-07-04] MEDS: FAMOTIDINE 20 MG/2 ML VIAL IV PUSH SCH ×2 (08:53→21:00)
[2016-07-04] MEDS: ARTIFICIAL TEARS OPTH SOLN 15 ML BTL EACH EYE SCH ×3 (08:56→18:00)
[2016-07-04] MEDS: LACTULOSE SYRUP 20 GM/30 ML CUP PO SCH (08:56)
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
[2016-07-04] MEDS: oxyCODONE HCL ORAL CONC 20 MG/ML SYRINGE PO SCH ×3 (12:00→21:00)
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
[2016-07-04] MEDS: ACETAMINOPHEN 325 MG TAB PO PRN (16:14)
[2016-07-04] MEDS: ONDANSETRON HCL 4 MG/2 ML VIAL IV PRN (17:05)
[2016-07-05] VITALS (19 sets, daily range): BP systolic 122–156; BP diastolic 66–77; PULSE 100–107; RESP 16–29; TEMP 99.9–100.9; O2SAT 93–97
[2016-07-05] MEDS: oxyCODONE HCL ORAL CONC 20 MG/ML SYRINGE PO SCH ×6 (00:35→20:00)
[2016-07-05] MEDS: fentaNYL DRIP 250 ML IV SCH (02:41)
[2016-07-05] MEDS: CHLORHEXIDINE GLUCONATE 2 % 1 PACK (2 CLOTHS) TOP SCH ×2 (03:00→22:00)
[2016-07-05 05:32] LABS: MEAN CORPUSCULAR HEMOGLOBIN 29.6 PG (27.0-34.0); PLATELET COUNT 115 TH/MM3 (150-450); RED CELL DISTRIBUTION WIDTH 15.1 % (11.6-17.2); REVIEW FLAG FINAL; WHITE BLOOD COUNT 7.8 TH/MM3 (4.0-11.0)
[2016-07-05 05:53] LABS: BICARBONATE 25.5 MEQ/L (21.0-32.0); MAGNESIUM 2.3 MG/DL (1.5-2.5); POTASSIUM 3.8 MEQ/L (3.5-5.1)
[2016-07-05 06:00] LABS: BLOOD GAS BASE EXCESS -0.2 mmol/L (-2-2); BLOOD GAS HCO3 24 mmol/L (22-26); BLOOD GAS METHEMOGLOBIN 0.8 % (0-2); BLOOD GAS O2 HGB SATURATION 96 % (90-100); BLOOD GAS OXYGEN CONTENT 17.7 Vol % (12.0-20.0); BLOOD GAS PCO2 38 mmHg (38-42); BLOOD GAS PO2 102 mmHg (61-120); BLOOD GAS TOTAL HGB 13.1 G/DL (12.0-16.0); TEMP CORR TO 98.6
[2016-07-05 06:01] LABS: CRITICAL VALUE NO; OXYGEN DEVICE VENTILATOR
[2016-07-05 06:02] LABS: DRAW SITE ART LINE; FIO2 45 %; STAT NO; VENT SETTINGS PRVC/AC
--- NOTE | 2016-07-05 06:43 | RADRPT ---
EXAM DATE/TIME: 07/05/2016 05:54 [facility] COMPARISON: CHEST SINGLE AP, July 04, 2016, 2:21. INDICATIONS : Evaluate for pulmonary disease. MEDICAL HISTORY : None. SURGICAL HISTORY : None. ENCOUNTER: Subsequent ACUITY: 4 - 6 days PAIN SCORE: Non-responsive. LOCATION: Bilateral chest FINDINGS: A single portable frontal view of the chest shows an endotracheal tube with the tip 5 cm proximal to the fela. Right subclavian central line, nasogastric tube, and 2 left thoracostomy tubes noted. No pneumothorax. Unchanged basilar consolidation bilaterally. Heart is normal in size. CONCLUSION: Unchanged bibasilar consolidation. No pneumothorax. Clarence Bridges Jr., MD on July 05, 2016 at 6:41 Board Certified Radiologist. This report was verified electronically.
[2016-07-05] MEDS: FAMOTIDINE 20 MG/2 ML VIAL IV PUSH SCH ×2 (07:50→21:34)
[2016-07-05] MEDS: SODIUM CHLORIDE 0.9% FLUSH 5 ML FLUSH IV FLUSH SCH ×2 (07:50→21:35)
[2016-07-05] MEDS: SULFAMETHOXAZOLE-TRIMETHOPRIM 400-80 MG TAB PO SCH (07:50)
[2016-07-05] MEDS: LACTULOSE SYRUP 20 GM/30 ML CUP PO SCH (07:50)
[2016-07-05] MEDS: MAGNESIUM HYDROXIDE SUSP 30 ML CUP PO SCH (07:50)
[2016-07-05] MEDS: FLUCONAZOLE 200 MG TAB PO SCH (07:50)
[2016-07-05] MEDS: DOCUSATE SODIUM 100 MG/10 ML UDC G-TUBE SCH ×2 (07:50→21:34)
[2016-07-05] MEDS: CHLORHEXIDINE 0.12% (ORAL KIT) 15 ML CUP MT SCH ×2 (07:51→21:35)
[2016-07-05 07:53] LABS: CD 19 PERCENT 20 % (6-29); CD3 ABSOLUTE 316 (840-3060); CD4/CD8 RATIO 0.1 (0.86-5.00); CD8 ABSOLUTE 298 (180-1170); LYMPHOCYTES, ABSOLUTE 471 (850-3900)
[2016-07-05] MEDS: ARTIFICIAL TEARS OPTH SOLN 15 ML BTL EACH EYE SCH ×3 (09:00→16:52)
[2016-07-05] MEDS ORDERED: MAGNESIUM CITRATE SOLN 300 ML BTL PO ONE (09:00)
[2016-07-05] MEDS: ENOXAPARIN SODIUM 40 MG/0.4 ML SYRINGE SQ SCH (09:33)
[2016-07-05] MEDS: ACETAMINOPHEN 325 MG TAB PO PRN (09:52)
[2016-07-05] MEDS: MUPIROCIN 2% OINT 1 APPLIC/GM SYR EACH NARE SCH ×2 (10:00→21:34)
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
[2016-07-06] VITALS (19 sets, daily range): BP systolic 104–140; BP diastolic 56–68; PULSE 102–134; RESP 16–27; TEMP 100.6–102.7; O2SAT 92–98
[2016-07-06] MEDS: ACETAMINOPHEN 325 MG TAB PO PRN ×3 (00:32→18:31)
[2016-07-06] MEDS: oxyCODONE HCL ORAL CONC 20 MG/ML SYRINGE PO SCH ×7 (04:00→23:43)
[2016-07-06 05:39] LABS: HEMATOCRIT 32.5 % (39.0-51.0); MEAN CELL VOLUME 86.3 FL (80.0-100.0); MEAN CORPUSCULAR HEMOGLOBIN 29.6 PG (27.0-34.0); MEAN CORPUSCULAR HGB CONC 34.3 % (32.0-36.0); PLATELET COUNT 143 TH/MM3 (150-450); RED BLOOD COUNT 3.77 MIL/MM3 (4.50-5.90); RED CELL DISTRIBUTION WIDTH 15.1 % (11.6-17.2); REVIEW FLAG FINAL; WHITE BLOOD COUNT 7.1 TH/MM3 (4.0-11.0)
[2016-07-06 05:59] LABS: BICARBONATE 27.9 MEQ/L (21.0-32.0); POTASSIUM 3.7 MEQ/L (3.5-5.1)
[2016-07-06 06:24] LABS: BLOOD GAS BASE EXCESS 0.7 mmol/L (-2-2); BLOOD GAS CARBOXYHEMOGLOBIN 1.1 % (0-4); BLOOD GAS HCO3 25 mmol/L (22-26); BLOOD GAS METHEMOGLOBIN 0.8 % (0-2); BLOOD GAS O2 HGB SATURATION 96 % (90-100); BLOOD GAS OXYGEN CONTENT 15.7 Vol % (12.0-20.0); BLOOD GAS PCO2 37 mmHg (38-42); BLOOD GAS PO2 107 mmHg (61-120); BLOOD GAS TOTAL HGB 11.5 G/DL (12.0-16.0); CRITICAL VALUE NO; OXYGEN DEVICE VENTILATOR; TEMP CORR TO 98.6
[2016-07-06 06:25] LABS: DRAW SITE ART LINE; FIO2 40 %; STAT NO; VENT SETTINGS PRVC/AC
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
[2016-07-06] MEDS: SODIUM CHLORIDE 0.9% FLUSH 5 ML FLUSH IV FLUSH SCH ×2 (07:33→20:47)
[2016-07-06] MEDS: DOCUSATE SODIUM 100 MG/10 ML UDC G-TUBE SCH ×2 (09:00→20:46)
[2016-07-06] MEDS: ARTIFICIAL TEARS OPTH SOLN 15 ML BTL EACH EYE SCH ×3 (09:00→17:14)
[2016-07-06] MEDS: LACTULOSE SYRUP 20 GM/30 ML CUP PO SCH (09:00)
[2016-07-06] MEDS: MAGNESIUM HYDROXIDE SUSP 30 ML CUP PO SCH (09:00)
[2016-07-06] MEDS: ENOXAPARIN SODIUM 40 MG/0.4 ML SYRINGE SQ SCH (09:06)
[2016-07-06] MEDS: SULFAMETHOXAZOLE-TRIMETHOPRIM 400-80 MG TAB PO SCH (09:07)
[2016-07-06] MEDS: CHLORHEXIDINE 0.12% (ORAL KIT) 15 ML CUP MT SCH ×2 (09:07→20:45)
[2016-07-06] MEDS: FAMOTIDINE 20 MG/2 ML VIAL IV PUSH SCH ×2 (09:07→20:47)
[2016-07-06] MEDS: FLUCONAZOLE 200 MG TAB PO SCH (09:07)
[2016-07-06] MEDS: MUPIROCIN 2% OINT 1 APPLIC/GM SYR EACH NARE SCH ×2 (09:07→20:46)
[2016-07-06] MEDS: RESP: ALBUTEROL 2.5 MG/IPRATROPIUM 0.5 MG NEB (PRN) INH (09:11)
[2016-07-06 10:43] LABS: ALKALINE PHOSPHATASE 322 U/L (45-117); ALT (GPT) 35 U/L (12-78); ANION GAP 10 MEQ/L (5-15); AST (GOT) 66 U/L (15-37); BICARBONATE 27.2 MEQ/L (21.0-32.0); BLOOD UREA NITROGEN 13 MG/DL (7-18); CHLORIDE 98 MEQ/L (98-107); GLOMERULAR FILTRATION RATE 123 ML/MIN (>89); POTASSIUM 3.9 MEQ/L (3.5-5.1); SODIUM (NA) 135 MEQ/L (136-145); TOTAL BILIRUBIN ADULT 1.7 MG/DL (0.2-1.0)
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
[2016-07-06] MEDS ORDERED: ACETAMINOPHEN 1000 MG/100 ML VIAL IV ONE (12:00)
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
--- NOTE | 2016-07-06 13:48 | MP ---
cc: OPAL MCGOWAN MD DATE OF SURGERY: 07/06/2016. PREOPERATIVE DIAGNOSIS: Left hydrothorax. POSTOPERATIVE DIAGNOSIS: Left hydrothorax. OPERATIVE PROCEDURE PERFORMED: Left chest tube placement. SURGEON: Opal Mcgowan M.D. ANESTHESIA: 1% Xylocaine. ESTIMATED BLOOD LOSS: Minimal. DESCRIPTION OF THE PROCEDURE IN DETAIL: The patient was prepped and draped in the usual fashion. The previous skin incision was reopened and then through a different tract, the area was numbed with 1% Xylocaine. A Dinah clamp was inserted a track created into the chest and then a 28-Setswana chest tube was placed and sutured in place with #0 silk. A chest x-ray was obtained. Opal GRAJEDA/GISELE /1:42 PM /1:45 PM
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
[2016-07-06] MEDS ORDERED: Vancomycin Consult Pharmacy 1 EA IV SCH (14:15)
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
--- NOTE | 2016-07-06 15:08 | MG ---
cc: HOA ARREDONDO M.D. Lab No: [id number] Date: 07/06/2016 Age: Sex: M Race: TECHNIQUE: 17 channel EEG. DESCRIPTION: The background rhythm is generally slow in theta frequency as well as delta frequencies bilaterally. The amplitude is 10 to 20 microvolts. No lateralizing features are seen. No epileptiform features are identified. Occasional muscle artifact is seen. Photic does not result in a driving response. INTERPRETATION: Abnormal study consistent with a moderate encephalopathy. MD MARINE Parikh/GISELE /3:03 PM /3:05 PM
[2016-07-06] MEDS: PIPERACIL-TAZO 4.5 GM PREMIX 100 ML IV SCH ×2 (15:16→20:47)
[2016-07-06] MEDS: VANCOMYCIN INJ 1,750 MG in SODIUM CHLORID 0.9% 500 ML INJ 500 ML IV SCH (17:14)
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
[2016-07-07] VITALS (18 sets, daily range): BP systolic 100–142; BP diastolic 54–76; PULSE 88–112; RESP 16–32; TEMP 99.7–100.4; O2SAT 93–96
[2016-07-07] MEDS ORDERED: PROPOFOL 1000 MG/100 ML INJ 100 ML ONE (00:40)
[2016-07-07] MEDS: PIPERACIL-TAZO 4.5 GM PREMIX 100 ML IV SCH ×4 (03:40→20:34)
[2016-07-07] MEDS: oxyCODONE HCL ORAL CONC 20 MG/ML SYRINGE PO SCH ×5 (03:40→20:35)
[2016-07-07] MEDS: CHLORHEXIDINE GLUCONATE 2 % 1 PACK (2 CLOTHS) TOP SCH (03:40)
[2016-07-07] MEDS: VANCOMYCIN INJ 1,750 MG in SODIUM CHLORID 0.9% 500 ML INJ 500 ML IV SCH ×2 (04:40→17:35)
[2016-07-07 05:15] LABS: HEMATOCRIT 30.3 % (39.0-51.0); MEAN CELL VOLUME 85.5 FL (80.0-100.0); MEAN CORPUSCULAR HEMOGLOBIN 29.5 PG (27.0-34.0); MEAN CORPUSCULAR HGB CONC 34.5 % (32.0-36.0); PLATELET COUNT 160 TH/MM3 (150-450); RED BLOOD COUNT 3.54 MIL/MM3 (4.50-5.90); RED CELL DISTRIBUTION WIDTH 15.3 % (11.6-17.2); REVIEW FLAG FINAL; WHITE BLOOD COUNT 8.5 TH/MM3 (4.0-11.0)
[2016-07-07] MEDS: PROPOFOL 1000 MG/100 ML IV SCH ×4 (05:19→20:38)
[2016-07-07 05:39] LABS: BLOOD GAS BASE EXCESS 3.4 mmol/L (-2-2); BLOOD GAS CARBOXYHEMOGLOBIN 0.8 % (0-4); BLOOD GAS HCO3 27 mmol/L (22-26); BLOOD GAS METHEMOGLOBIN 0.9 % (0-2); BLOOD GAS O2 HGB SATURATION 97 % (90-100); BLOOD GAS OXYGEN CONTENT 16.1 Vol % (12.0-20.0); BLOOD GAS PCO2 39 mmHg (38-42); BLOOD GAS PO2 136 mmHg (61-120); BLOOD GAS TOTAL HGB 11.6 G/DL (12.0-16.0); CRITICAL VALUE NO; OXYGEN DEVICE VENTILATOR; TEMP CORR TO 98.6
[2016-07-07 05:40] LABS: BICARBONATE 27.2 MEQ/L (21.0-32.0); POTASSIUM 3.7 MEQ/L (3.5-5.1)
[2016-07-07 05:40] LABS: DRAW SITE ALINE; FIO2 50 %; STAT NO; ULNAR PULSE PRESENT; VENT SETTINGS PRVC/16/650/1.2/+10
--- NOTE | 2016-07-07 06:12 | RADRPT ---
EXAM DATE/TIME: 07/07/2016 04:58 [facility] COMPARISON: CHEST SINGLE AP, July 06, 2016, 13:50. INDICATIONS : Shortness of breath. MEDICAL HISTORY : None. SURGICAL HISTORY : None. ENCOUNTER: Subsequent ACUITY: 1 week PAIN SCORE: Non-responsive. LOCATION: Bilateral chest FINDINGS: Endotracheal, right PICC, and gastric tubes stable in position. Left chest drainage tube remains pro jecting in the lower lateral left chest. Patchy areas of infiltrate in the left mid and lower lung s imilar configuration and severity to prior examination. No pneumothorax seen. CONCLUSION: Stable infiltrates left lower lung. Left chest tube stable in position; no pneumothorax seen. Clarence Gardner MD on July 07, 2016 at 6:09 Board Certified Radiologist. This report was verified electronically.
[2016-07-07] MEDS: DOCUSATE SODIUM 100 MG/10 ML UDC G-TUBE SCH ×2 (08:13→20:35)
[2016-07-07] MEDS: CHLORHEXIDINE 0.12% (ORAL KIT) 15 ML CUP MT SCH ×2 (08:13→20:39)
[2016-07-07] MEDS: MUPIROCIN 2% OINT 1 APPLIC/GM SYR EACH NARE SCH ×2 (08:13→20:38)
[2016-07-07] MEDS: ARTIFICIAL TEARS OPTH SOLN 15 ML BTL EACH EYE SCH ×3 (08:13→18:00)
[2016-07-07] MEDS: LACTULOSE SYRUP 20 GM/30 ML CUP PO SCH (08:14)
[2016-07-07] MEDS: SULFAMETHOXAZOLE-TRIMETHOPRIM 400-80 MG TAB PO SCH (08:14)
[2016-07-07] MEDS: MAGNESIUM HYDROXIDE SUSP 30 ML CUP PO SCH (08:14)
[2016-07-07] MEDS: FAMOTIDINE 20 MG/2 ML VIAL IV PUSH SCH ×2 (08:14→20:35)
[2016-07-07] MEDS: FLUCONAZOLE 200 MG TAB PO SCH (08:14)
[2016-07-07] MEDS: SODIUM CHLORIDE 0.9% FLUSH 5 ML FLUSH IV FLUSH SCH ×2 (08:15→20:35)
[2016-07-07] MEDS: ENOXAPARIN SODIUM 40 MG/0.4 ML SYRINGE SQ SCH (09:24)
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
[2016-07-08] VITALS (22 sets, daily range): BP systolic 98–144; BP diastolic 50–79; PULSE 76–122; RESP 16–24; TEMP 98.1–99.5; O2SAT 94–100
[2016-07-08] MEDS: PROPOFOL 1000 MG/100 ML IV SCH ×6 (00:09→21:05)
[2016-07-08] MEDS: oxyCODONE HCL ORAL CONC 20 MG/ML SYRINGE PO SCH ×6 (00:10→21:05)
[2016-07-08] MEDS: PIPERACIL-TAZO 4.5 GM PREMIX 100 ML IV SCH ×4 (03:00→21:06)
[2016-07-08] MEDS: CHLORHEXIDINE GLUCONATE 2 % 1 PACK (2 CLOTHS) TOP SCH (04:00)
[2016-07-08] MEDS ORDERED: PHARMACY ORDERED LAB XX ONE (04:45)
[2016-07-08] MEDS: VANCOMYCIN INJ 1,750 MG in SODIUM CHLORID 0.9% 500 ML INJ 500 ML IV SCH ×2 (05:05→16:35)
[2016-07-08 05:15] LABS: BLOOD GAS BASE EXCESS 2.2 mmol/L (-2-2); BLOOD GAS CARBOXYHEMOGLOBIN 1.1 % (0-4); BLOOD GAS HCO3 26 mmol/L (22-26); BLOOD GAS METHEMOGLOBIN 1.2 % (0-2); BLOOD GAS O2 HGB SATURATION 96 % (90-100); BLOOD GAS OXYGEN CONTENT 13.7 Vol % (12.0-20.0); BLOOD GAS PCO2 37 mmHg (38-42); BLOOD GAS PO2 105 mmHg (61-120); CRITICAL VALUE NO; OXYGEN DEVICE VENTILATOR; TEMP CORR TO 98.6
[2016-07-08 05:16] LABS: DRAW SITE ALINE; STAT NO
[2016-07-08 05:46] LABS: HEMATOCRIT 28.7 % (39.0-51.0); MEAN CELL VOLUME 86.2 FL (80.0-100.0); MEAN CORPUSCULAR HEMOGLOBIN 29.8 PG (27.0-34.0); MEAN CORPUSCULAR HGB CONC 34.6 % (32.0-36.0); PLATELET COUNT 186 TH/MM3 (150-450); RED BLOOD COUNT 3.33 MIL/MM3 (4.50-5.90); RED CELL DISTRIBUTION WIDTH 15.4 % (11.6-17.2); REVIEW FLAG FINAL; WHITE BLOOD COUNT 6.8 TH/MM3 (4.0-11.0)
[2016-07-08 05:47] LABS: VENT SETTINGS PRVC/R16/650/1.2/+10
[2016-07-08 05:48] LABS: FIO2 40 %
[2016-07-08 06:20] LABS: BICARBONATE 27.8 MEQ/L (21.0-32.0)
[2016-07-08 06:25] LABS: POTASSIUM 3.6 MEQ/L (3.5-5.1)
--- NOTE | 2016-07-08 07:05 | RADRPT ---
EXAM DATE/TIME: 07/08/2016 05:26 [facility] COMPARISON: CHEST SINGLE AP, July 07, 2016, 4:58. INDICATIONS : Evaluate after respiratory failure MEDICAL HISTORY : None. SURGICAL HISTORY : None. ENCOUNTER: Subsequent ACUITY: 2 weeks PAIN SCORE: Non-responsive. LOCATION: Bilateral chest FINDINGS: Endotracheal, right PICC, and gastric tubes stable in position. Left chest drainage tube remains pro jecting in the lower lateral left chest. Patchy areas of infiltrate in the left mid and lower lung s imilar configuration and severity to prior examination. No pneumothorax seen. CONCLUSION: Stable infiltrates in the left lung. Left lower chest tube stable position, no evidence of pneumotho rax. Clarence Gardner MD on July 08, 2016 at 7:02 Board Certified Radiologist. This report was verified electronically.
[2016-07-08] MEDS: DOCUSATE SODIUM 100 MG/10 ML UDC G-TUBE SCH ×2 (08:26→21:00)
[2016-07-08] MEDS: SULFAMETHOXAZOLE-TRIMETHOPRIM 400-80 MG TAB PO SCH (08:26)
[2016-07-08] MEDS: FLUCONAZOLE 200 MG TAB PO SCH (08:26)
[2016-07-08] MEDS: LACTULOSE SYRUP 20 GM/30 ML CUP PO SCH (08:27)
[2016-07-08] MEDS: MAGNESIUM HYDROXIDE SUSP 30 ML CUP PO SCH (08:27)
[2016-07-08] MEDS: FAMOTIDINE 20 MG/2 ML VIAL IV PUSH SCH ×2 (08:27→21:07)
[2016-07-08] MEDS: CHLORHEXIDINE 0.12% (ORAL KIT) 15 ML CUP MT SCH ×2 (08:27→21:04)
[2016-07-08] MEDS: SODIUM CHLORIDE 0.9% FLUSH 5 ML FLUSH IV FLUSH SCH ×2 (08:27→21:07)
[2016-07-08] MEDS: MUPIROCIN 2% OINT 1 APPLIC/GM SYR EACH NARE SCH ×2 (08:27→08:41)
[2016-07-08] MEDS: ARTIFICIAL TEARS OPTH SOLN 15 ML BTL EACH EYE SCH ×3 (08:27→17:24)
[2016-07-08] MEDS: ENOXAPARIN SODIUM 40 MG/0.4 ML SYRINGE SQ SCH (10:00)
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
[2016-07-08] MEDS ORDERED: LORazepam 2 MG/ML VIAL ONE (14:07)
[2016-07-08] MEDS ORDERED: methylPREDNISolone SOD SUCC 125 MG/2 ML VIAL ONE (14:12)
[2016-07-08] MEDS ORDERED: MIDAZOLAM HCL 5 MG/5 ML VIAL ONE (14:13)
[2016-07-08] MEDS ORDERED: ETOMIDATE 20 MG/10 ML VIAL ONE (14:14)
--- NOTE | 2016-07-08 14:16 | RADRPT ---
EXAM DATE/TIME: 07/08/2016 13:47 [facility] COMPARISON: CHEST SINGLE AP, July 08, 2016, 5:26. INDICATIONS : Evaluate post chest tube removal. MEDICAL HISTORY : None. SURGICAL HISTORY : None. ENCOUNTER: Initial ACUITY: 1 day PAIN SCORE: 0/10 LOCATION: Chest FINDINGS: Central venous catheter is in good position. Persistent consolidative changes are present in the lef t base. Left chest tube has been removed. Heart remains enlarged. Pulmonary vascularity is normal. CONCLUSION: There is no evidence for pneumothorax following chest tube removal. Isaias York MD FACR on July 08, 2016 at 14:12 Board Certified Radiologist. This report was verified electronically.
[2016-07-08] MEDS ORDERED: ROCURONIUM INJ 50 MG/5 ML VIAL ONE ×2 (14:25→15:09)
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
[2016-07-08 15:17] LABS: BLOOD GAS BASE EXCESS 0.6 mmol/L (-2-2); BLOOD GAS CARBOXYHEMOGLOBIN 0.9 % (0-4); BLOOD GAS HCO3 26 mmol/L (22-26); BLOOD GAS METHEMOGLOBIN 1.3 % (0-2); BLOOD GAS O2 HGB SATURATION 96 % (90-100); BLOOD GAS OXYGEN CONTENT 15.2 Vol % (12.0-20.0); BLOOD GAS PCO2 48 mmHg (38-42); BLOOD GAS PO2 135 mmHg (61-120); BLOOD GAS TOTAL HGB 11.1 G/DL (12.0-16.0); CRITICAL VALUE NO; OXYGEN DEVICE VENTILATOR; TEMP CORR TO 98.6
[2016-07-08 15:19] LABS: DRAW SITE RT RADIAL; FIO2 100 %; NUMBER OF ARTERIAL PUNCTURES 1; STAT NO; ULNAR PULSE PRESENT; VENT SETTINGS PRVC/AC
--- NOTE | 2016-07-08 16:00 | RADRPT ---
EXAM DATE/TIME: 07/08/2016 14:55 [facility] COMPARISON: CHEST SINGLE AP, July 08, 2016, 13:47. INDICATIONS : Evaluate post intubation. MEDICAL HISTORY : None. SURGICAL HISTORY : None. ENCOUNTER: Initial ACUITY: 1 day PAIN SCORE: Non-responsive. LOCATION: Bilateral chest FINDINGS: A right subclavian central line has its tip in the right atrium. There is no pneumothorax. The endo tracheal tube has its tip 3 cm above the fela in good position. A nasogastric tube has its tip bel ow the diaphragm. There has been interval worsening bilateral pulmonary infiltrates consistent with worsening pulmonary edema versus pneumonia. Clinical correlation is recommended. The heart is stabl e. CONCLUSION: 1. Worsening pulmonary infiltrates consistent with worsening pulmonary edema versus pneumonia. Clin ical correlation is recommended. 2. Endotracheal tube in good position 3 cm above the fela. 4. Nasogastric tube in good position well above fela. Bladimir Cross MD on July 08, 2016 at 15:40 Board Certified Radiologist. This report was verified electronically.
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
[2016-07-09] VITALS (18 sets, daily range): BP systolic 104–147; BP diastolic 55–64; PULSE 75–91; RESP 16; TEMP 98.4–100; O2SAT 95–100
[2016-07-09] MEDS: oxyCODONE HCL ORAL CONC 20 MG/ML SYRINGE PO SCH ×3 (00:09→08:16)
[2016-07-09] MEDS: PROPOFOL 1000 MG/100 ML IV SCH ×8 (00:09→23:06)
[2016-07-09] MEDS: PIPERACIL-TAZO 4.5 GM PREMIX 100 ML IV SCH ×4 (03:08→20:29)
[2016-07-09] MEDS: CHLORHEXIDINE GLUCONATE 2 % 1 PACK (2 CLOTHS) TOP SCH (04:00)
[2016-07-09] MEDS: VANCOMYCIN INJ 1,750 MG in SODIUM CHLORID 0.9% 500 ML INJ 500 ML IV SCH ×2 (05:03→16:33)
[2016-07-09 05:39] LABS: MEAN CELL VOLUME 85.8 FL (80.0-100.0); MEAN CORPUSCULAR HEMOGLOBIN 29.9 PG (27.0-34.0); MEAN CORPUSCULAR HGB CONC 34.9 % (32.0-36.0); PLATELET COUNT 242 TH/MM3 (150-450); RED BLOOD COUNT 3.39 MIL/MM3 (4.50-5.90); RED CELL DISTRIBUTION WIDTH 14.9 % (11.6-17.2); WHITE BLOOD COUNT 7.4 TH/MM3 (4.0-11.0)
[2016-07-09 06:08] LABS: REVIEW FLAG FINAL
[2016-07-09 06:29] LABS: BICARBONATE 25.7 MEQ/L (21.0-32.0)
[2016-07-09 06:34] LABS: POTASSIUM 4.1 MEQ/L (3.5-5.1)
[2016-07-09] MEDS: CHLORHEXIDINE 0.12% (ORAL KIT) 15 ML CUP MT SCH ×2 (08:00→20:28)
[2016-07-09] MEDS: ARTIFICIAL TEARS OPTH SOLN 15 ML BTL EACH EYE SCH ×3 (08:16→16:34)
[2016-07-09] MEDS: MUPIROCIN 2% OINT 1 APPLIC/GM SYR EACH NARE SCH ×2 (08:17→20:28)
[2016-07-09] MEDS: SODIUM CHLORIDE 0.9% FLUSH 5 ML FLUSH IV FLUSH SCH ×2 (08:18→20:29)
[2016-07-09] MEDS: AZITHROMYCIN 600 MG TAB PO SCH (08:18)
[2016-07-09] MEDS: FAMOTIDINE 20 MG/2 ML VIAL IV PUSH SCH ×2 (08:18→20:29)
[2016-07-09] MEDS: FLUCONAZOLE 200 MG TAB PO SCH (08:18)
[2016-07-09] MEDS: LACTULOSE SYRUP 20 GM/30 ML CUP PO SCH (08:18)
[2016-07-09] MEDS: SULFAMETHOXAZOLE-TRIMETHOPRIM 400-80 MG TAB PO SCH (08:50)
[2016-07-09] MEDS: DOCUSATE SODIUM 100 MG/10 ML UDC G-TUBE SCH ×2 (08:50→20:28)
[2016-07-09] MEDS: MAGNESIUM HYDROXIDE SUSP 30 ML CUP PO SCH (08:50)
[2016-07-09] MEDS: ENOXAPARIN SODIUM 40 MG/0.4 ML SYRINGE SQ SCH (09:44)
[2016-07-09] MEDS: LORazepam 2 MG/ML VIAL IV PRN ×3 (11:11→23:06)
[2016-07-09] MEDS: RESP: ALBUTEROL 2.5 MG/IPRATROPIUM 0.5 MG NEB (SCH) NEB ×3 (11:14→20:58)
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
[2016-07-09] MEDS ORDERED: GLUCAGON 1 MG/ML VIAL OTHER PRN (16:45)
[2016-07-09] MEDS ORDERED: DEXTROSE 50% IN WATER 50 ML VIAL(D50) IV PUSH PRN (16:45)
[2016-07-09] MEDS: PRAVASTATIN SOD 40 MG TAB PO SCH (20:29)
[2016-07-09] MEDS: ACETAMINOPHEN 325 MG TAB PO PRN (20:30)
[2016-07-09] MEDS: INSULIN NovoLIN REGULAR SUPPLEMENTAL SCALE SQ SCH (21:00)
[2016-07-10] VITALS (16 sets, daily range): BP systolic 103–135; BP diastolic 56–76; PULSE 78–95; RESP 12–17; TEMP 99.3–100.4; O2SAT 95–99
[2016-07-10] MEDS: RESP: ALBUTEROL 2.5 MG/IPRATROPIUM 0.5 MG NEB (SCH) NEB ×7 (00:25→23:41)
[2016-07-10] MEDS: LORazepam 2 MG/ML VIAL IV PRN ×4 (01:31→23:52)
[2016-07-10] MEDS: PROPOFOL 1000 MG/100 ML IV SCH ×3 (01:45→08:07)
[2016-07-10] MEDS: PIPERACIL-TAZO 4.5 GM PREMIX 100 ML IV SCH ×4 (02:55→21:21)
[2016-07-10] MEDS: CHLORHEXIDINE GLUCONATE 2 % 1 PACK (2 CLOTHS) TOP SCH (04:00)
[2016-07-10] MEDS ORDERED: PHARMACY ORDERED LAB XX ONE (04:45)
[2016-07-10 05:24] LABS: MEAN CELL VOLUME 86.9 FL (80.0-100.0); MEAN CORPUSCULAR HEMOGLOBIN 31.1 PG (27.0-34.0); MEAN CORPUSCULAR HGB CONC 35.8 % (32.0-36.0); PLATELET COUNT 319 TH/MM3 (150-450); RED BLOOD COUNT 3.34 MIL/MM3 (4.50-5.90); REVIEW FLAG FINAL; WHITE BLOOD COUNT 9.5 TH/MM3 (4.0-11.0)
[2016-07-10 05:42] LABS: BICARBONATE 23.9 MEQ/L (21.0-32.0); POTASSIUM 4.9 MEQ/L (3.5-5.1)
[2016-07-10] MEDS: VANCOMYCIN INJ 1,750 MG in SODIUM CHLORID 0.9% 500 ML INJ 500 ML IV SCH (05:58)
[2016-07-10 06:04] LABS: BLOOD GAS BASE EXCESS 1.1 mmol/L (-2-2); BLOOD GAS CARBOXYHEMOGLOBIN 1.2 % (0-4); BLOOD GAS HCO3 24 mmol/L (22-26); BLOOD GAS METHEMOGLOBIN 1.4 % (0-2); BLOOD GAS O2 HGB SATURATION 95 % (90-100); BLOOD GAS OXYGEN CONTENT 13.4 Vol % (12.0-20.0); BLOOD GAS PCO2 29 mmHg (38-42); BLOOD GAS PO2 96 mmHg (61-120); BLOOD GAS TOTAL HGB 9.9 G/DL (12.0-16.0); TEMP CORR TO 98.6
[2016-07-10 06:06] LABS: CRITICAL VALUE YES; OXYGEN DEVICE VENTILATOR
[2016-07-10 06:07] LABS: FIO2 50 %
[2016-07-10 06:08] LABS: DRAW SITE RT RADIAL; NUMBER OF ARTERIAL PUNCTURES 1; STAT NO; ULNAR PULSE PRESENT
--- NOTE | 2016-07-10 06:24 | RADRPT ---
EXAM DATE/TIME: 07/10/2016 05:23 [facility] COMPARISON: CHEST SINGLE AP, July 08, 2016, 14:55. INDICATIONS : Shortness of breath. MEDICAL HISTORY : None. SURGICAL HISTORY : None. ENCOUNTER: Subsequent ACUITY: 2 weeks PAIN SCORE: Non-responsive. LOCATION: Bilateral chest FINDINGS: A single view of the chest demonstrates cardiomegaly with patchy density left lower lobe. Discoid ate lectasis in the left midlung. Endotracheal tube, nasogastric tube and right subclavian central line a re stable in position. Improving interstitial edema. The cardiomediastinal contours are unremarkable. Osseous structures are intact. CONCLUSION: 1. Cardiomegaly with patchy density left lower lobe and discoid atelectasis left midlung. 2. Interstitial edema has almost completely resolved. Rajat Baptiste MD on July 10, 2016 at 6:21 Board Certified Radiologist. This report was verified electronically.
[2016-07-10] MEDS: INSULIN NovoLIN REGULAR SUPPLEMENTAL SCALE SQ SCH ×4 (06:35→21:00)
[2016-07-10] MEDS: CHLORHEXIDINE 0.12% (ORAL KIT) 15 ML CUP MT SCH ×2 (08:00→20:41)
[2016-07-10] MEDS: FLUCONAZOLE 200 MG TAB PO SCH (08:07)
[2016-07-10] MEDS: SULFAMETHOXAZOLE-TRIMETHOPRIM 400-80 MG TAB PO SCH (08:07)
[2016-07-10] MEDS: SODIUM CHLORIDE 0.9% FLUSH 5 ML FLUSH IV FLUSH SCH ×2 (08:08→21:20)
[2016-07-10] MEDS: FAMOTIDINE 20 MG/2 ML VIAL IV PUSH SCH ×2 (08:08→21:20)
[2016-07-10] MEDS: DOCUSATE SODIUM 100 MG/10 ML UDC G-TUBE SCH ×2 (08:08→20:54)
[2016-07-10] MEDS: ARTIFICIAL TEARS OPTH SOLN 15 ML BTL EACH EYE SCH ×3 (08:08→17:54)
[2016-07-10] MEDS: LACTULOSE SYRUP 20 GM/30 ML CUP PO SCH (08:08)
[2016-07-10] MEDS: MAGNESIUM HYDROXIDE SUSP 30 ML CUP PO SCH (08:08)
[2016-07-10] MEDS: ENOXAPARIN SODIUM 40 MG/0.4 ML SYRINGE SQ SCH (10:16)
[2016-07-10] MEDS: DEXMEDETOMIDINE INJ 50 ML IV SCH ×7 (10:17→19:15)
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
[2016-07-10] MEDS: VANCOMYCIN INJ 2,000 MG in SODIUM CHLORID 0.9% 500 ML INJ 500 ML IV SCH (17:07)
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
[2016-07-10 21:11] LABS: STAT NO
[2016-07-10] MEDS: PRAVASTATIN SOD 40 MG TAB PO SCH (21:20)
[2016-07-10] MEDS ORDERED: MORPHINE SULFATE 4 MG/ML INJ IV SCH (22:30)
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
[2016-07-11] VITALS (15 sets, daily range): BP systolic 106–128; BP diastolic 58–68; PULSE 73–84; RESP 12–30; TEMP 99.3–100.4; O2SAT 94–99
[2016-07-11] MEDS: DEXMEDETOMIDINE INJ 1,000 MCG in SODIUM CHLOR 0.9% 250 ML INJ 240 ML IV SCH ×3 (01:57→15:57)
[2016-07-11] MEDS: PIPERACIL-TAZO 4.5 GM PREMIX 100 ML IV SCH ×4 (03:45→20:29)
[2016-07-11] MEDS: CHLORHEXIDINE GLUCONATE 2 % 1 PACK (2 CLOTHS) TOP SCH (03:49)
[2016-07-11] MEDS: RESP: ALBUTEROL 2.5 MG/IPRATROPIUM 0.5 MG NEB (SCH) NEB ×6 (04:01→23:56)
[2016-07-11] MEDS: LORazepam 2 MG/ML VIAL IV PRN (05:21)
[2016-07-11] MEDS: VANCOMYCIN INJ 2,000 MG in SODIUM CHLORID 0.9% 500 ML INJ 500 ML IV SCH ×2 (05:21→16:58)
[2016-07-11] MEDS: INSULIN NovoLIN REGULAR SUPPLEMENTAL SCALE SQ SCH ×4 (06:30→21:00)
[2016-07-11] MEDS: CHLORHEXIDINE 0.12% (ORAL KIT) 15 ML CUP MT SCH ×2 (08:00→20:28)
[2016-07-11] MEDS: ARTIFICIAL TEARS OPTH SOLN 15 ML BTL EACH EYE SCH ×3 (08:08→20:28)
[2016-07-11] MEDS: SODIUM CHLORIDE 0.9% FLUSH 5 ML FLUSH IV FLUSH SCH ×2 (08:40→20:29)
[2016-07-11] MEDS: FLUCONAZOLE 200 MG TAB PO SCH (08:40)
[2016-07-11] MEDS: LACTULOSE SYRUP 20 GM/30 ML CUP PO SCH (08:40)
[2016-07-11] MEDS: MAGNESIUM HYDROXIDE SUSP 30 ML CUP PO SCH (08:40)
[2016-07-11] MEDS: FAMOTIDINE 20 MG/2 ML VIAL IV PUSH SCH ×2 (08:40→20:29)
[2016-07-11] MEDS: SULFAMETHOXAZOLE-TRIMETHOPRIM 400-80 MG TAB PO SCH (08:40)
[2016-07-11] MEDS: DOCUSATE SODIUM 100 MG/10 ML UDC G-TUBE SCH ×2 (08:40→20:29)
[2016-07-11] MEDS: ENOXAPARIN SODIUM 40 MG/0.4 ML SYRINGE SQ SCH (10:00)
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
[2016-07-11] MEDS: PRAVASTATIN SOD 40 MG TAB PO SCH (20:29)
[2016-07-12] VITALS (18 sets, daily range): BP systolic 114–159; BP diastolic 59–86; PULSE 76–107; RESP 12–32; TEMP 97.8–100; O2SAT 95–100
[2016-07-12] MEDS: LORazepam 2 MG/ML VIAL IV PRN ×2 (00:15→22:46)
[2016-07-12] MEDS: PIPERACIL-TAZO 4.5 GM PREMIX 100 ML IV SCH ×4 (03:29→20:16)
[2016-07-12] MEDS: RESP: ALBUTEROL 2.5 MG/IPRATROPIUM 0.5 MG NEB (SCH) NEB ×6 (03:44→23:01)
[2016-07-12] MEDS ORDERED: PHARMACY ORDERED LAB XX ONE (04:45)
[2016-07-12] MEDS: CHLORHEXIDINE GLUCONATE 2 % 1 PACK (2 CLOTHS) TOP SCH (04:59)
[2016-07-12 05:37] LABS: BLOOD GAS BASE EXCESS -3.5 mmol/L (-2-2); BLOOD GAS CARBOXYHEMOGLOBIN 1.3 % (0-4); BLOOD GAS HCO3 20 mmol/L (22-26); BLOOD GAS METHEMOGLOBIN 0.6 % (0-2); BLOOD GAS O2 HGB SATURATION 94 % (90-100); BLOOD GAS OXYGEN CONTENT 12.9 Vol % (12.0-20.0); BLOOD GAS PCO2 29 mmHg (38-42); BLOOD GAS PO2 78 mmHg (61-120); BLOOD GAS TOTAL HGB 9.7 G/DL (12.0-16.0); CRITICAL VALUE NO; OXYGEN DEVICE VENTILATOR; TEMP CORR TO 98.6
[2016-07-12 05:38] LABS: DRAW SITE RT RADIAL; FIO2 45 %; NUMBER OF ARTERIAL PUNCTURES 1; STAT NO; ULNAR PULSE PRESENT; VENT SETTINGS PRVC/AC
[2016-07-12 05:58] LABS: HEMATOCRIT 29.6 % (39.0-51.0); MEAN CELL VOLUME 87.1 FL (80.0-100.0); MEAN CORPUSCULAR HEMOGLOBIN 28.3 PG (27.0-34.0); MEAN CORPUSCULAR HGB CONC 32.5 % (32.0-36.0); PLATELET COUNT 475 TH/MM3 (150-450); RED CELL DISTRIBUTION WIDTH 14.8 % (11.6-17.2); REVIEW FLAG FINAL; WHITE BLOOD COUNT 9.2 TH/MM3 (4.0-11.0)
--- NOTE | 2016-07-12 05:59 | RADRPT ---
EXAM DATE/TIME: 07/12/2016 05:26 [facility] COMPARISON: CHEST SINGLE AP, July 10, 2016, 5:23. INDICATIONS : Shortness of breath. MEDICAL HISTORY : None. SURGICAL HISTORY : None. ENCOUNTER: Subsequent ACUITY: 3 weeks PAIN SCORE: Non-responsive. LOCATION: Bilateral chest FINDINGS: A single view of the chest demonstrates worsening patchy densities left lower lobe. Discoid atelectas is left midlung. Endotracheal tube, nasogastric tube and right subclavian central line are stable in position. Heart mildly enlarged. The cardiomediastinal contours are unremarkable. Osseous structures are intact. CONCLUSION: 1. Worsening patchy infiltrates left lower lobe. 2. Support lines and tubes are unchanged. Rajat Baptiste MD on July 12, 2016 at 5:57 Board Certified Radiologist. This report was verified electronically.
[2016-07-12 06:20] LABS: BICARBONATE 22.4 MEQ/L (21.0-32.0); POTASSIUM 4.1 MEQ/L (3.5-5.1)
[2016-07-12] MEDS: INSULIN NovoLIN REGULAR SUPPLEMENTAL SCALE SQ SCH ×3 (07:00→21:00)
[2016-07-12] MEDS: VANCOMYCIN INJ 2,000 MG in SODIUM CHLORID 0.9% 500 ML INJ 500 ML IV SCH ×2 (07:13→17:46)
[2016-07-12] MEDS: CHLORHEXIDINE 0.12% (ORAL KIT) 15 ML CUP MT SCH ×2 (08:41→20:17)
[2016-07-12] MEDS: LACTULOSE SYRUP 20 GM/30 ML CUP PO SCH (08:41)
[2016-07-12] MEDS: DOCUSATE SODIUM 100 MG/10 ML UDC G-TUBE SCH ×2 (08:41→20:15)
[2016-07-12] MEDS: FLUCONAZOLE 200 MG TAB PO SCH (08:42)
[2016-07-12] MEDS: SULFAMETHOXAZOLE-TRIMETHOPRIM 400-80 MG TAB PO SCH (08:42)
[2016-07-12] MEDS: MAGNESIUM HYDROXIDE SUSP 30 ML CUP PO SCH (08:42)
[2016-07-12] MEDS: FAMOTIDINE 20 MG/2 ML VIAL IV PUSH SCH ×2 (08:42→20:16)
[2016-07-12] MEDS: SODIUM CHLORIDE 0.9% FLUSH 5 ML FLUSH IV FLUSH SCH ×2 (08:44→20:16)
[2016-07-12] MEDS: ARTIFICIAL TEARS OPTH SOLN 15 ML BTL EACH EYE SCH ×3 (09:00→17:47)
[2016-07-12] MEDS: ENOXAPARIN SODIUM 40 MG/0.4 ML SYRINGE SQ SCH (09:18)
[2016-07-12] MEDS ORDERED: MISC INFORMATION OTHER ONE (10:45)
[2016-07-12] MEDS ORDERED: MAGNESIUM HYDROXIDE SUSP 30 ML CUP PO PRN (11:00)
[2016-07-12] MEDS ORDERED: LACTULOSE SYRUP 20 GM/30 ML CUP PO PRN (11:00)
[2016-07-12] MEDS ORDERED: RESP: RACEPINEPHRINE 2.25% 0.5 ML NEB ONE ×2 (11:29→13:31)
[2016-07-12] MEDS ORDERED: ETOMIDATE 40 MG/20 ML VIAL ONE (11:35)
[2016-07-12] MEDS ORDERED: SUCCINYLCHOLINE CHLORIDE 200 MG/10 ML VIAL ONE (11:35)
[2016-07-12] MEDS ORDERED: DEXAMETHASONE SOD PHOS 20 MG/5 ML VIAL ONE (13:55)
[2016-07-12] MEDS ORDERED: DEXAMETHASONE SOD PHOS 4 MG/ML VIAL IV ONE (14:00)
[2016-07-12] MEDS ORDERED: DEXAMETHASONE SOD PHOS 4 MG/ML VIAL IM ONE (14:00)
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
[2016-07-12] MEDS: DEXMEDETOMIDINE INJ 1,000 MCG in SODIUM CHLOR 0.9% 250 ML INJ 240 ML IV SCH (16:22)
--- NOTE | 2016-07-12 18:23 | HHI.PR ---
Subjective Remarks Some residual stridor. Acceptable air movement. Work of breathing not significantly increased. Will schedule additional decadron and add nebulized 2.25% racemic epinephrine. Will follow closely. Objective Vital Signs Date Time Temp Pulse Resp B/P Pulse Ox O2 Delivery O2 Flow Rate FiO2 07/12/16 14:00 107 07/12/16 12:00 101 07/12/16 12:00 100.0 101 20 145/84 97 07/12/16 11:53 100 Room Air 21 07/12/16 11:05 100 100 07/12/16 10:00 92 07/12/16 08:15 100 35 07/12/16 08:15 35 07/12/16 08:00 84 07/12/16 08:00 99.7 94 32 128/72 100 07/12/16 08:00 35 07/12/16 06:00 84 07/12/16 04:20 98 35 07/12/16 04:00 83 07/12/16 04:00 35 07/12/16 04:00 98.2 80 18 114/59 98 07/12/16 02:00 76 07/12/16 01:18 95 35 07/12/16 00:00 76 07/12/16 00:00 99.3 76 12 117/69 97 07/12/16 00:00 35 07/11/16 22:00 78 07/11/16 20:00 76 07/11/16 20:00 35 07/11/16 20:00 99.5 76 17 121/66 96 07/11/16 19:32 98 35 I/O 07/11/16 07/11/16 07/11/16 07/12/16 07/12/16 07/12/16 07:00 15:00 23:00 07:00 15:00 23:00 Intake Total 1399 ml 972 ml 1763 ml 1078 ml 950 ml Output Total 900 ml 700 ml 750 ml 850 ml 1700 ml Balance 499 ml 272 ml 1013 ml 228 ml -750 ml IV Total 933 ml 439 ml 1069 ml 608 ml 650 ml Tube Feeding 466 ml 383 ml 444 ml 470 ml 150 ml Tube Irrigant 0 ml 100 ml Other 150 ml 150 ml 150 ml Output Urine Total 900 ml 700 ml 750 ml 850 ml 700 ml Stool Total 0 ml 0 ml 0 ml 0 ml 1000 ml Gastric Drainage Total 0 ml Tube Feeding Residual Discard 0 ml 0 ml 0 ml 0 ml Result Diagram: 07/12/16 0518 07/12/16 0518 Ronen Silverio MD Jul 12, 2016 18:23
[2016-07-12] MEDS ORDERED: RESP: RACEPINEPHRINE 2.25% 0.5 ML NEB NEB ONE (18:30)
[2016-07-12] MEDS: PRAVASTATIN SOD 40 MG TAB PO SCH (20:16)
[2016-07-12] MEDS: DEXAMETHASONE SOD PHOS 4 MG/ML VIAL IV PUSH SCH (20:17)
[2016-07-12] MEDS: RESP: RACEPINEPHRINE 2.25% 0.5 ML NEB NEB PRN (22:59)
[2016-07-13] VITALS (13 sets, daily range): BP systolic 122–151; BP diastolic 67–79; PULSE 80–110; RESP 18–29; TEMP 97.8–99.6; O2SAT 95–100
[2016-07-13] MEDS: RESP: RACEPINEPHRINE 2.25% 0.5 ML NEB NEB PRN ×3 (00:02→04:08)
[2016-07-13] MEDS: DEXAMETHASONE SOD PHOS 4 MG/ML VIAL IV PUSH SCH ×2 (01:09→06:38)
[2016-07-13] MEDS: PIPERACIL-TAZO 4.5 GM PREMIX 100 ML IV SCH ×4 (03:10→22:34)
[2016-07-13] MEDS: RESP: ALBUTEROL 2.5 MG/IPRATROPIUM 0.5 MG NEB (SCH) NEB ×2 (03:52→08:00)
[2016-07-13] MEDS: CHLORHEXIDINE GLUCONATE 2 % 1 PACK (2 CLOTHS) TOP SCH (04:27)
[2016-07-13] MEDS: oxyCODONE/ACETAMINOPHEN 5 MG/325 MG TAB PO PRN ×3 (05:05→22:46)
[2016-07-13] MEDS: VANCOMYCIN INJ 2,000 MG in SODIUM CHLORID 0.9% 500 ML INJ 500 ML IV SCH (06:38)
[2016-07-13] MEDS: INSULIN NovoLIN REGULAR SUPPLEMENTAL SCALE SQ SCH ×2 (07:00→10:47)
[2016-07-13] MEDS: CHLORHEXIDINE 0.12% (ORAL KIT) 15 ML CUP MT SCH (08:00)
[2016-07-13] MEDS: DOCUSATE SODIUM 100 MG/10 ML UDC G-TUBE SCH (08:24)
[2016-07-13] MEDS: FLUCONAZOLE 200 MG TAB PO SCH (09:05)
[2016-07-13] MEDS: SULFAMETHOXAZOLE-TRIMETHOPRIM 400-80 MG TAB PO SCH (09:05)
[2016-07-13] MEDS: FAMOTIDINE 20 MG/2 ML VIAL IV PUSH SCH (09:06)
[2016-07-13] MEDS: ARTIFICIAL TEARS OPTH SOLN 15 ML BTL EACH EYE SCH ×3 (09:06→18:00)
[2016-07-13] MEDS: SODIUM CHLORIDE 0.9% FLUSH 5 ML FLUSH IV FLUSH SCH ×2 (09:06→20:21)
[2016-07-13] MEDS: METOPROLOL TARTRATE 25 MG TAB PO SCH ×2 (12:06→20:21)
[2016-07-13] MEDS: RESP: ALBUTEROL 2.5 MG/IPRATROPIUM 0.5 MG NEB (PRN) INH ×2 (12:08→22:51)
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
[2016-07-13] MEDS: VANCOMYCIN INJ 1,250 MG in SODIUM CHLOR 0.9% 250 ML INJ 250 ML IV SCH ×2 (14:23→20:22)
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
[2016-07-13] MEDS: ONDANSETRON HCL 4 MG/2 ML VIAL IV PRN (20:19)
[2016-07-13] MEDS: FAMOTIDINE 20 MG TAB PO SCH (20:21)
[2016-07-13] MEDS: PRAVASTATIN SOD 40 MG TAB PO SCH (20:21)
[2016-07-13] MEDS: DOCUSATE SODIUM 100 MG CAP PO SCH (20:21)
[2016-07-13] MEDS ORDERED: ONDANSETRON HCL 4 MG/2 ML VIAL IV PRN (20:57)
[2016-07-13] MEDS ORDERED: METOCLOPRAMIDE HCL 10 MG/2 ML VIAL IV PRN (22:00)
[2016-07-14] VITALS (7 sets, daily range): BP systolic 121–140; BP diastolic 58–86; PULSE 91–113; RESP 17–20; TEMP 97–101.5; O2SAT 94–100
[2016-07-14] MEDS: PIPERACIL-TAZO 4.5 GM PREMIX 100 ML IV SCH ×4 (03:15→20:46)
[2016-07-14] MEDS ORDERED: PHARMACY ORDERED LAB XX ONE ×2 (04:45→05:45)
[2016-07-14] MEDS: ACETAMINOPHEN 325 MG TAB PO PRN (06:11)
[2016-07-14] MEDS: VANCOMYCIN INJ 1,250 MG in SODIUM CHLOR 0.9% 250 ML INJ 250 ML IV SCH ×3 (06:12→22:30)
[2016-07-14] MEDS: DOCUSATE SODIUM 100 MG CAP PO SCH ×2 (08:13→20:46)
[2016-07-14] MEDS: oxyCODONE/ACETAMINOPHEN 5 MG/325 MG TAB PO PRN ×4 (08:14→20:47)
[2016-07-14] MEDS: FLUCONAZOLE 200 MG TAB PO SCH (08:14)
[2016-07-14] MEDS: ENOXAPARIN SODIUM 40 MG/0.4 ML SYRINGE SQ SCH (08:16)
[2016-07-14] MEDS: METOPROLOL TARTRATE 25 MG TAB PO SCH ×2 (08:16→20:46)
[2016-07-14] MEDS: SULFAMETHOXAZOLE-TRIMETHOPRIM 400-80 MG TAB PO SCH (08:16)
[2016-07-14] MEDS: SODIUM CHLORIDE 0.9% FLUSH 5 ML FLUSH IV FLUSH SCH ×2 (08:16→20:56)
[2016-07-14] MEDS: ARTIFICIAL TEARS OPTH SOLN 15 ML BTL EACH EYE SCH ×3 (08:25→16:01)
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
[2016-07-14 12:43] LABS: HEMATOCRIT 36.4 % (39.0-51.0); MEAN CELL VOLUME 87.2 FL (80.0-100.0); MEAN CORPUSCULAR HEMOGLOBIN 28.8 PG (27.0-34.0); PLATELET COUNT 568 TH/MM3 (150-450); RED BLOOD COUNT 4.18 MIL/MM3 (4.50-5.90); RED CELL DISTRIBUTION WIDTH 15.4 % (11.6-17.2); REVIEW FLAG FINAL; WHITE BLOOD COUNT 9.8 TH/MM3 (4.0-11.0)
--- NOTE | 2016-07-14 12:48 | RADRPT ---
EXAM DATE/TIME: 07/14/2016 12:09 [place] COMPARISON: Prior study 07/12/2016 available for comparison. INDICATIONS : Follow up for chest tube removal. MEDICAL HISTORY : None. SURGICAL HISTORY : None. ENCOUNTER: Initial ACUITY: 1 day PAIN SCORE: Non-responsive. LOCATION: Bilateral chest FINDINGS: The endotracheal tube and nasogastric tube have been removed. The central line has been removed. Th ere is persistent consolidation of the left lower lobe. Mild atelectasis right lung base. No visibl e pneumothorax. CONCLUSION: Persistent infiltrate left lower lobe. Status post extubation with good preservation of lung volumes . Larry Pulido MD on July 14, 2016 at 12:45 Board Certified Radiologist. This report was verified electronically.
[2016-07-14 13:48] LABS: BICARBONATE 23.1 MEQ/L (21.0-32.0); MAGNESIUM 2.1 MG/DL (1.5-2.5); POTASSIUM 3.9 MEQ/L (3.5-5.1)
[2016-07-14] MEDS: FAMOTIDINE 20 MG TAB PO SCH (20:46)
[2016-07-14] MEDS: PRAVASTATIN SOD 40 MG TAB PO SCH (20:46)
[2016-07-15] VITALS (12 sets, daily range): BP systolic 108–144; BP diastolic 61–84; PULSE 96–136; RESP 19–22; TEMP 96.5–102.2; O2SAT 92–98
[2016-07-15] MEDS: ACETAMINOPHEN 325 MG TAB PO PRN ×2 (00:05→08:01)
[2016-07-15] MEDS: PIPERACIL-TAZO 4.5 GM PREMIX 100 ML IV SCH ×4 (03:46→20:16)
[2016-07-15] MEDS: VANCOMYCIN INJ 1,250 MG in SODIUM CHLOR 0.9% 250 ML INJ 250 ML IV SCH ×3 (05:41→21:38)
[2016-07-15] MEDS: FLUCONAZOLE 200 MG TAB PO SCH (08:01)
[2016-07-15] MEDS: METOPROLOL TARTRATE 25 MG TAB PO SCH ×2 (08:01→20:15)
[2016-07-15] MEDS: SULFAMETHOXAZOLE-TRIMETHOPRIM 400-80 MG TAB PO SCH (08:01)
[2016-07-15] MEDS: oxyCODONE/ACETAMINOPHEN 5 MG/325 MG TAB PO PRN ×4 (08:02→20:17)
[2016-07-15] MEDS: DOCUSATE SODIUM 100 MG CAP PO SCH ×2 (08:02→20:15)
[2016-07-15] MEDS: SODIUM CHLORIDE 0.9% FLUSH 5 ML FLUSH IV FLUSH SCH ×2 (08:02→20:27)
[2016-07-15] MEDS: ENOXAPARIN SODIUM 40 MG/0.4 ML SYRINGE SQ SCH (08:02)
[2016-07-15] MEDS: ARTIFICIAL TEARS OPTH SOLN 15 ML BTL EACH EYE SCH ×3 (08:02→15:58)
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
--- NOTE | 2016-07-15 13:23 | RADRPT ---
EXAM DATE/TIME: 07/15/2016 12:33 [facility] COMPARISON: Prior study dated 07/14/2016 used for comparison. INDICATIONS : Fever. MEDICAL HISTORY : None. SURGICAL HISTORY : None. ENCOUNTER: Initial ACUITY: 1 day PAIN SCORE: 0/10 LOCATION: Bilateral chest FINDINGS: A single view of the chest demonstrates some infiltrates left lung base. There is a combination of l inear consolidation and air space disease. Small amount of atelectasis in the right lung base. There is no pneumothorax. The heart and mediastinum are unremarkable. CONCLUSION: PERSISTENT INFILTRATE IN THE LEFT LOWER LOBE. UPPER LUNGS ARE CLEAR. Larry Pulido MD on July 15, 2016 at 13:10 Board Certified Radiologist. This report was verified electronically.
--- NOTE | 2016-07-15 14:15 | HHI.PR ---
Addendum to Inpatient Note Additional Information RN called reporting that pr refusing t take HIV meds He is also running fever - dc MOHR - BC x c - AFB BC - sputum clx - UA, reflex C+S - CXR - cont may chu for now Brandee Ramirez MD Jul 15, 2016 14:15
[2016-07-15 17:26] LABS: BACTERIA, URINE OCC /hpf; BLOOD, URINE SMALL (NEG); COMMENT (UR) CULT NOT INDICATED; CULTURE IF INDICATED CULT NOT INDICATED; GLUCOSE,URINE NEG (NEG); KETONE, URINE NEG (NEG); MUCUS URINE FEW /lpf (OCC); NITRITE,URINE NEG (NEG); PH, URINE 6.5 (5.0-8.5); SQUAMOUS EPITHELIAL CELL URINE 1 /hpf (0-5); URINE COLOR YELLOW (YELLW/STRAW)
[2016-07-15] MEDS: FAMOTIDINE 20 MG TAB PO SCH (20:15)
[2016-07-15] MEDS: PRAVASTATIN SOD 40 MG TAB PO SCH (20:15)
[2016-07-15] MEDS: RESP: ALBUTEROL 2.5 MG/IPRATROPIUM 0.5 MG NEB (PRN) INH (20:53)
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
[2016-07-16] VITALS (14 sets, daily range): BP systolic 88–137; BP diastolic 34–72; PULSE 69–130; RESP 19–30; TEMP 98.9–101.1; O2SAT 92–100
[2016-07-16] MEDS: PIPERACIL-TAZO 4.5 GM PREMIX 100 ML IV SCH ×4 (03:26→19:40)
[2016-07-16] MEDS: ACETAMINOPHEN 325 MG TAB PO PRN (03:44)
[2016-07-16 05:22] LABS: HEMATOCRIT 31.6 % (39.0-51.0); MEAN CELL VOLUME 84.3 FL (80.0-100.0); MEAN CORPUSCULAR HEMOGLOBIN 28.5 PG (27.0-34.0); MEAN CORPUSCULAR HGB CONC 33.9 % (32.0-36.0); PLATELET COUNT 428 TH/MM3 (150-450); RED BLOOD COUNT 3.75 MIL/MM3 (4.50-5.90); REVIEW FLAG FINAL; WHITE BLOOD COUNT 6.6 TH/MM3 (4.0-11.0)
[2016-07-16] MEDS: VANCOMYCIN INJ 1,250 MG in SODIUM CHLOR 0.9% 250 ML INJ 250 ML IV SCH (05:24)
[2016-07-16 05:33] LABS: BICARBONATE 18.7 MEQ/L (21.0-32.0); POTASSIUM 3.8 MEQ/L (3.5-5.1)
[2016-07-16] MEDS ORDERED: BISACODYL EC 5 MG TABEC PO ONE (08:45)
[2016-07-16] MEDS: ARTIFICIAL TEARS OPTH SOLN 15 ML BTL EACH EYE SCH ×3 (09:00→17:27)
[2016-07-16] MEDS: DOCUSATE SODIUM 100 MG CAP PO SCH ×2 (09:00→19:40)
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
[2016-07-16] MEDS: FLUCONAZOLE 200 MG TAB PO SCH (10:42)
[2016-07-16] MEDS: METOPROLOL TARTRATE 25 MG TAB PO SCH ×2 (10:42→19:39)
[2016-07-16] MEDS: AZITHROMYCIN 600 MG TAB PO SCH (10:42)
[2016-07-16] MEDS: SULFAMETHOXAZOLE-TRIMETHOPRIM 400-80 MG TAB PO SCH (10:42)
[2016-07-16] MEDS: SODIUM CHLORIDE 0.9% FLUSH 5 ML FLUSH IV FLUSH SCH ×2 (10:43→19:40)
[2016-07-16] MEDS: ENOXAPARIN SODIUM 40 MG/0.4 ML SYRINGE SQ SCH (10:44)
[2016-07-16] MEDS ORDERED: PHARMACY ORDERED LAB XX ONE (13:45)
[2016-07-16] MEDS: oxyCODONE/ACETAMINOPHEN 5 MG/325 MG TAB PO PRN ×2 (15:35→19:39)
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
[2016-07-16] MEDS: FAMOTIDINE 20 MG TAB PO SCH (19:38)
[2016-07-16] MEDS: MAGNESIUM HYDROXIDE SUSP 30 ML CUP PO SCH (19:39)
[2016-07-16] MEDS: PRAVASTATIN SOD 40 MG TAB PO SCH (19:39)
[2016-07-17] LABS: AUTOMATED NEUTROPHIL # 5.3 TH/MM3 (1.8-7.7); BASOPHIL % 0.2 % (0.0-2.0); EOSINOPHIL % 0.5 % (0.0-4.0); HEMATOCRIT 29.8 % (39.0-51.0); HEMO FLAGS DIFF FINAL; LYMPH % 5.3 % (9.0-44.0); LYMPHOCYTE # 0.3 TH/MM3 (1.0-4.8); MEAN CELL VOLUME 84.8 FL (80.0-100.0); MEAN CORPUSCULAR HEMOGLOBIN 28.7 PG (27.0-34.0); MEAN CORPUSCULAR HGB CONC 33.8 % (32.0-36.0); MONO % 1.5 % (0.0-8.0); NEUT % 92.5 % (16.0-70.0); PLATELET COUNT 339 TH/MM3 (150-450); RED BLOOD COUNT 3.51 MIL/MM3 (4.50-5.90); RED CELL DISTRIBUTION WIDTH 15.5 % (11.6-17.2); WHITE BLOOD COUNT 5.7 TH/MM3 (4.0-11.0)
[2016-07-17 00:17] LABS: BLOOD GAS VENOUS BASE EXCESS -6.4 mmol/L (-2-2); BLOOD GAS VENOUS HCO3 17 mmol/L (22-26); BLOOD GAS VENOUS O2 HGB SAT 92 % (70-76); BLOOD GAS VENOUS PCO2 25 mmHg (44-48); BLOOD GAS VENOUS PO2 69 mmHg (35-40); BLOOD GAS VENOUS pH 7.45 (7.360-7.400); CRITICAL VALUE NO; DRAW SITE LEFT ARM BY RN; FIO2 21 %; OXYGEN DEVICE ROOM AIR; STAT YES; TEMP CORR TO 98.6
--- NOTE | 2016-07-17 00:18 | RADRPT ---
EXAM DATE/TIME: 07/17/2016 00:01 [facility] COMPARISON: CHEST SINGLE AP, July 15, 2016, 12:33. INDICATIONS : Shortness of breath. MEDICAL HISTORY : None. SURGICAL HISTORY : None. ENCOUNTER: Subsequent ACUITY: 3 weeks PAIN SCORE: Non-responsive. LOCATION: Bilateral chest FINDINGS: Persistent bibasilar infiltrates, left worse than right. Cardiomediastinal contours are grossly stabl e. CONCLUSION: Persistent infiltrates. Darrius Arias MD on July 17, 2016 at 0:16 Board Certified Radiologist. This report was verified electronically.
[2016-07-17 00:21] LABS: ALKALINE PHOSPHATASE 378 U/L (45-117); ALT (GPT) 166 U/L (12-78); ANION GAP 11 MEQ/L (5-15); AST (GOT) 365 U/L (15-37); BICARBONATE 19.9 MEQ/L (21.0-32.0); BLOOD UREA NITROGEN 31 MG/DL (7-18); CHLORIDE 96 MEQ/L (98-107); GLOMERULAR FILTRATION RATE 32 ML/MIN (>89); SODIUM (NA) 127 MEQ/L (136-145); TOTAL BILIRUBIN ADULT 1.9 MG/DL (0.2-1.0)
[2016-07-17 00:30] VITALS: BP 112/60; PULSE 109; RESP 30; TEMP 100.1; O2SAT 98
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
[2016-07-17] MEDS ORDERED: DEXT 5%-NACL 0.45% 1000 ML INJ 1,000 ML IV ONE (01:00)
[2016-07-17] MEDS: PIPERACIL-TAZO 4.5 GM PREMIX 100 ML IV SCH ×2 (02:48→09:11)
[2016-07-17 04:00] VITALS: BP 98/62; PULSE 104; RESP 28; TEMP 100.4; O2SAT 95
[2016-07-17 08:36] VITALS: BP 105/55; PULSE 112; RESP 18; TEMP 100; O2SAT 98
[2016-07-17] MEDS: METOPROLOL TARTRATE 25 MG TAB PO SCH ×2 (09:00→19:34)
[2016-07-17] MEDS: SODIUM CHLORIDE 0.9% FLUSH 5 ML FLUSH IV FLUSH SCH ×2 (09:11→19:34)
[2016-07-17] MEDS: SULFAMETHOXAZOLE-TRIMETHOPRIM 400-80 MG TAB PO SCH (11:30)
[2016-07-17] MEDS: ARTIFICIAL TEARS OPTH SOLN 15 ML BTL EACH EYE SCH ×3 (11:31→17:33)
[2016-07-17] MEDS: DOCUSATE SODIUM 100 MG CAP PO SCH ×2 (11:31→19:34)
[2016-07-17] MEDS: FLUCONAZOLE 200 MG TAB PO SCH (11:31)
[2016-07-17] MEDS: ENOXAPARIN SODIUM 40 MG/0.4 ML SYRINGE SQ SCH (11:32)
[2016-07-17] MEDS ORDERED: SODIUM CHLOR 0.9% 1000 ML INJ 1,000 ML IV ONE (11:45)
[2016-07-17] MEDS ORDERED: diphenhydrAMINE HCL 25 MG CAP PO PRN (12:00)
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
[2016-07-17] MEDS: SODIUM CHLOR 0.9% 1000 ML INJ 1,000 ML IV SCH ×2 (12:51→19:34)
[2016-07-17 13:03] VITALS: BP 111/63; PULSE 104; TEMP 98.4; O2SAT 97
[2016-07-17 15:45] VITALS: BP 142/58; PULSE 106; RESP 18; TEMP 99.1; O2SAT 95
[2016-07-17] MEDS: PIPERACIL-TAZO 3.375 GM PREMIX 50 ML IV SCH ×2 (15:46→19:33)
--- NOTE | 2016-07-17 19:02 | RADRPT ---
EXAM DATE/TIME: 07/17/2016 18:10 [facility] COMPARISON: No previous studies available for comparison. INDICATIONS : Increased lab values and abdominal pain. MEDICAL HISTORY : Dyspnea. HIV. MRSA. SURGICAL HISTORY : Leg surgery. ENCOUNTER: Initial ACUITY: 1 day PAIN SCORE: 9/10 LOCATION: Bilateral upper quadrant MEASUREMENTS: LIVER: 20.5 cm length COMMON DUCT: 4 mm RIGHT KIDNEY: 14.1 x 6.6 x 5.1 cm SPLEEN: 13.0 cm length FINDINGS: LIVER: The liver is echogenic without ductal dilatation. COMMON DUCT: No intraluminal mass or stone visualized. GALLBLADDER: The gallbladder wall is minimally thickened with pericholecystic fluid. There are no gallstones. PANCREAS: Limited because of bowel gas. RIGHT KIDNEY: Mildly echogenic without hydronephrosis. SPLEEN: Minimally enlarged spleen CONCLUSION: Echogenic liver without ductal dilatation. Isaias York MD FACR on July 17, 2016 at 18:59 Board Certified Radiologist. This report was verified electronically.
[2016-07-17] MEDS: MAGNESIUM HYDROXIDE SUSP 30 ML CUP PO SCH (19:34)
[2016-07-17] MEDS: PRAVASTATIN SOD 40 MG TAB PO SCH (19:34)
[2016-07-17] MEDS: FAMOTIDINE 20 MG TAB PO SCH (19:34)
[2016-07-17 20:00] VITALS: BP 109/57; PULSE 105; RESP 26; TEMP 97.2; O2SAT 96
[2016-07-18] VITALS: BP 101/59; PULSE 105; RESP 26; TEMP 97.8; O2SAT 95
[2016-07-18] MEDS: PIPERACIL-TAZO 3.375 GM PREMIX 50 ML IV SCH (03:04)
[2016-07-18 06:05] LABS: HEMATOCRIT 26.6 % (39.0-51.0); MEAN CELL VOLUME 84.1 FL (80.0-100.0); MEAN CORPUSCULAR HEMOGLOBIN 29.4 PG (27.0-34.0); MEAN CORPUSCULAR HGB CONC 34.9 % (32.0-36.0); PLATELET COUNT 250 TH/MM3 (150-450); RED BLOOD COUNT 3.16 MIL/MM3 (4.50-5.90); RED CELL DISTRIBUTION WIDTH 15.4 % (11.6-17.2); REVIEW FLAG FINAL; WHITE BLOOD COUNT 3.8 TH/MM3 (4.0-11.0)
[2016-07-18 06:44] LABS: BICARBONATE 15.5 MEQ/L (21.0-32.0); INDIRECT BILIRUBIN 0.5 MG/DL (0.0-0.8); MAGNESIUM 2.1 MG/DL (1.5-2.5); POTASSIUM 3.8 MEQ/L (3.5-5.1); TOTAL BILIRUBIN ADULT 2.7 MG/DL (0.2-1.0)
[2016-07-18 06:50] LABS: CALCIUM-PROTEIN CORRECTED 7.9 MG/DL (8.5-10.1)
[2016-07-18 08:00] VITALS: BP 118/58; PULSE 94; RESP 21; TEMP 99.9; O2SAT 96
[2016-07-18] MEDS: SODIUM CHLOR 0.9% 1000 ML INJ 1,000 ML IV SCH ×2 (08:33→16:27)
[2016-07-18] MEDS: SODIUM CHLORIDE 0.9% FLUSH 5 ML FLUSH IV FLUSH SCH ×2 (08:33→21:00)
[2016-07-18] MEDS: DOCUSATE SODIUM 100 MG CAP PO SCH ×2 (08:34→21:22)
[2016-07-18] MEDS: FLUCONAZOLE 200 MG TAB PO SCH (08:34)
[2016-07-18] MEDS: METOPROLOL TARTRATE 25 MG TAB PO SCH ×2 (08:34→21:22)
[2016-07-18] MEDS: SULFAMETHOXAZOLE-TRIMETHOPRIM 400-80 MG TAB PO SCH (08:34)
[2016-07-18] MEDS: ARTIFICIAL TEARS OPTH SOLN 15 ML BTL EACH EYE SCH ×2 (08:35→13:00)
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
[2016-07-18] MEDS: ENOXAPARIN SODIUM 30 MG/0.3 ML SYRINGE SQ SCH (10:53)
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
[2016-07-18 12:00] VITALS: BP 123/65; PULSE 89; RESP 19; TEMP 98.7; O2SAT 97
[2016-07-18] MEDS ORDERED: PIPERACIL-TAZO 2.25 GM PREMIX 50 ML IV SCH (12:00)
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
[2016-07-18 13:47] VITALS: BP 113/59; PULSE 87; RESP 19; TEMP 98.7; O2SAT 98
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
[2016-07-18 16:00] VITALS: BP 115/75; PULSE 92; RESP 19; TEMP 98.3; O2SAT 98
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
[2016-07-18 20:00] VITALS: BP 128/80; PULSE 88; RESP 19; TEMP 96; O2SAT 99
--- NOTE | 2016-07-18 20:55 | EKG ---
Date Performed: 07/17/2016 Time Performed: 00:06:54 PTAGE: 40 years EKG: Sinus tachycardia Abnormal ECG PREVIOUS TRACING : 07/02/2016 04.13 Compared to prior tracing no significant change DOCTOR: Saray Rivera Interpretating Date/Time 07/18/2016 20:54:00
[2016-07-18] MEDS: cefTRIAXone INJ 2,000 MG in SODIUM CHLORIDE 0.9% INJ 100 ML IV SCH (21:21)
[2016-07-18] MEDS: PRAVASTATIN SOD 40 MG TAB PO SCH (21:22)
[2016-07-18] MEDS: FAMOTIDINE 20 MG TAB PO SCH (21:22)
[2016-07-18] MEDS: SODIUM BICARBONATE 8.4% INJ 75 MEQ in SODIUM CHLOR 0.45% 1000 ML INJ 1,000 ML IV SCH (21:23)
[2016-07-18] MEDS: MAGNESIUM HYDROXIDE SUSP 30 ML CUP PO SCH (21:23)
[2016-07-19] VITALS: BP 148/86; PULSE 89; RESP 19; TEMP 96; O2SAT 93
--- NOTE | 2016-07-19 00:41 | RADRPT ---
EXAM DATE/TIME: 07/18/2016 22:42 [facility] COMPARISON: No previous studies available for comparison. INDICATIONS : Increased BUN/creatinine. MEDICAL HISTORY : Dyspnea. HIV. MRSA. SURGICAL HISTORY : Leg surgery. ENCOUNTER: Initial ACUITY: 1 day PAIN SCORE: 9/10 LOCATION: Bilateral flank MEASUREMENTS: RIGHT KIDNEY: 14.1 x 6.5 x 5.0 cm LEFT KIDNEY: 13.4 x 6.2 x 6.9 cm FINDINGS: RIGHT KIDNEY: Markedly increased renal cortical echogenicity. No evidence of hydronephrosis LEFT KIDNEY: Markedly increased renal cortical echogenicity. 2.3 cm cyst involving the lower pole cortex. No stone or hydronephrosis. BLADDER: Decompressed with Soto catheter CONCLUSION: Moderately increased renal cortical echogenicity consistent with medical renal disease. No hydronephr osis. Darrius Arias MD on July 19, 2016 at 0:39 Board Certified Radiologist. This report was verified electronically.
[2016-07-19 08:00] VITALS: BP 104/66; PULSE 80; RESP 16; TEMP 96.7; O2SAT 98
[2016-07-19] MEDS: SODIUM BICARBONATE 8.4% INJ 75 MEQ in SODIUM CHLOR 0.45% 1000 ML INJ 1,000 ML IV SCH ×3 (08:48→19:54)
[2016-07-19] MEDS: SODIUM CHLORIDE 0.9% FLUSH 5 ML FLUSH IV FLUSH SCH ×2 (09:00→19:53)
[2016-07-19] MEDS: METOPROLOL TARTRATE 25 MG TAB PO SCH ×2 (09:43→19:53)
[2016-07-19] MEDS: FLUCONAZOLE 200 MG TAB PO SCH (09:43)
[2016-07-19] MEDS: DOCUSATE SODIUM 100 MG CAP PO SCH ×2 (09:43→19:53)
[2016-07-19] MEDS: TAMSULOSIN HCL 0.4 MG CAP PO SCH (09:43)
[2016-07-19] MEDS: ENOXAPARIN SODIUM 30 MG/0.3 ML SYRINGE SQ SCH ×2 (09:43→10:00)
[2016-07-19] MEDS: SULFAMETHOXAZOLE-TRIMETHOPRIM 400-80 MG TAB PO SCH (09:43)
[2016-07-19 10:09] LABS: CALCIUM-PROTEIN CORRECTED 7.8 MG/DL (8.5-10.1); POTASSIUM 4.1 MEQ/L (3.5-5.1); TOTAL BILIRUBIN ADULT 3.2 MG/DL (0.2-1.0)
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
[2016-07-19 12:00] VITALS: BP 99/66; PULSE 76; RESP 16; TEMP 95.2; O2SAT 100
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
[2016-07-19] MEDS ORDERED: FUROSEMIDE 40 MG/4 ML VIAL IV PUSH ONE (13:30)
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
[2016-07-19 16:00] VITALS: BP 97/59; PULSE 84; RESP 16; TEMP 95.5; O2SAT 99
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
[2016-07-19] MEDS: cefTRIAXone INJ 2,000 MG in SODIUM CHLORIDE 0.9% INJ 100 ML IV SCH (19:53)
[2016-07-19] MEDS: FAMOTIDINE 20 MG TAB PO SCH (19:53)
[2016-07-19] MEDS: PRAVASTATIN SOD 40 MG TAB PO SCH (19:53)
[2016-07-19 20:00] VITALS: BP 97/52; PULSE 85; RESP 20; TEMP 97.5; O2SAT 97
[2016-07-20] VITALS: BP_SYST 110; BP_SYST 97; BP_DIAS 52; BP_DIAS 62; PULSE 85; PULSE 86; RESP 20; TEMP 96.1; TEMP 97.5; O2SAT 95; O2SAT 97
[2016-07-20 05:43] LABS: HEMATOCRIT 24.7 % (39.0-51.0); MEAN CORPUSCULAR HEMOGLOBIN 29.3 PG (27.0-34.0); MEAN CORPUSCULAR HGB CONC 35.4 % (32.0-36.0); PLATELET COUNT 166 TH/MM3 (150-450); RED BLOOD COUNT 2.98 MIL/MM3 (4.50-5.90); RED CELL DISTRIBUTION WIDTH 15.7 % (11.6-17.2); WHITE BLOOD COUNT 3.2 TH/MM3 (4.0-11.0)
[2016-07-20 05:52] LABS: BICARBONATE 15.1 MEQ/L (21.0-32.0)
[2016-07-20 06:14] LABS: CALCIUM-PROTEIN CORRECTED 7.7 MG/DL (8.5-10.1)
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
[2016-07-20 08:00] VITALS: BP 106/61; PULSE 90; RESP 20; TEMP 96.8; O2SAT 97
[2016-07-20] MEDS: FLUCONAZOLE 200 MG TAB PO SCH (08:31)
[2016-07-20] MEDS: METOPROLOL TARTRATE 25 MG TAB PO SCH ×2 (08:31→21:00)
[2016-07-20] MEDS: SODIUM CHLORIDE 0.9% FLUSH 5 ML FLUSH IV FLUSH SCH ×2 (08:31→21:46)
[2016-07-20] MEDS: TAMSULOSIN HCL 0.4 MG CAP PO SCH (08:31)
[2016-07-20] MEDS: DOCUSATE SODIUM 100 MG CAP PO SCH ×2 (08:31→21:46)
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
[2016-07-20] MEDS: SODIUM BICARBONATE 8.4% INJ 75 MEQ in SODIUM CHLOR 0.45% 1000 ML INJ 1,000 ML IV SCH ×2 (10:36→21:47)
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
[2016-07-20 11:21] LABS: BLOOD, URINE MOD (NEG); GLUCOSE,URINE NEG (NEG); KETONE, URINE NEG (NEG); MUCUS URINE FEW /lpf (OCC); NITRITE,URINE NEG (NEG); SQUAMOUS EPITHELIAL CELL URINE <1 /hpf (0-5); URINE COLOR YELLOW (YELLW/STRAW)
[2016-07-20 11:30] LABS: COMMENT (UR) CATH-CULT NOT IND
[2016-07-20 11:35] LABS: NEUTROPHIL # MANUAL DIFF 2.7 TH/MM3 (1.8-7.7); POLYS (SEG NEUTROPHILS) 83 % (16-70); WBC DIFF SAMPLE 100
[2016-07-20 11:36] LABS: PLATELET ESTIMATE SMEAR NORMAL (NORMAL); PLATELET MORPHOLOGY ENLARGED (NORMAL); SCAN/DIFF FINAL DIFF MANUAL
[2016-07-20 11:37] LABS: TEARDROP RBCS 1+ (NORMAL); TOXIC VACUOLATION PRESENT (NONE SEEN)
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
[2016-07-20] MEDS: AZTREONAM INJ 1,000 MG in SODIUM CHLORIDE 0.9% INJ 100 ML IV SCH (12:13)
[2016-07-20] MEDS ORDERED: SODIUM CHLOR 0.9% 1000 ML INJ 1,000 ML IV PRN (12:22)
[2016-07-20 12:27] LABS: ANA SCREEN NEG (NEG)
[2016-07-20] MEDS ORDERED: NITROGLYCERIN 0.4 MG SL 25 TABS/BTL SL PRN (12:30)
[2016-07-20] MEDS ORDERED: diphenhydrAMINE HCL 25 MG CAP PO PRN (12:30)
[2016-07-20] MEDS ORDERED: ACETAMINOPHEN 325 MG TAB PO PRN (12:30)
[2016-07-20] MEDS ORDERED: GELATIN 12 MM/7 MM FOAM TOP PRN (12:30)
[2016-07-20] MEDS ORDERED: MANNITOL 12.5 GM/50 ML VIAL IV PRN (12:30)
[2016-07-20] MEDS ORDERED: ONDANSETRON HCL 4 MG/2 ML VIAL IV PRN (12:30)
[2016-07-20] MEDS ORDERED: ALBUMIN HUMAN 25% 25 GM/100 ML BAGP IV PRN (12:30)
[2016-07-20] MEDS ORDERED: HEPARIN SODIUM - IV 10,000 UNITS/10 ML VIAL IVF PRN ×2 (12:30→13:30)
[2016-07-20] MEDS ORDERED: cloNIDine HCL 0.1 MG TAB PO PRN (12:30)
--- NOTE | 2016-07-20 13:17 | PD.RAD ---
Post Procedure Progress Note Pre Procedure Diagnosis: (1) Acute kidney injury Post Procedure Diagnosis: (1) Acute kidney injury Procedure Date: Jul 20, 2016 Supervising Radiologist: Edin Francisco Proceduralist/Assist: Fadumo Rivero RT(R), RT Francy(R)() Anesthesia: Local Plan of Activity Patient to Unit: Nursing Unit Patient Condition: Fair See PACS Report for procedural detail/treatment Central Venous Access Device Procedure 1 Right Internal Jugular Hemodialysis Catheter Non-Tunneled Placement dual lumen Edin Francisco MD Jul 20, 2016 13:17
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
[2016-07-20] MEDS ORDERED: SODIUM CHLORIDE 0.9% FLUSH 5 ML FLUSH IVF PRN (13:30)
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
[2016-07-20 19:55] VITALS: O2SAT 97
[2016-07-20 20:00] VITALS: BP 119/64; PULSE 101; RESP 26; TEMP 97; O2SAT 94
[2016-07-20] MEDS: FAMOTIDINE 20 MG TAB PO SCH (21:45)
[2016-07-20] MEDS: PRAVASTATIN SOD 40 MG TAB PO SCH (21:45)
[2016-07-21] VITALS: BP 127/66; PULSE 101; RESP 26; TEMP 97.4; O2SAT 94
[2016-07-21 08:00] VITALS: BP 127/67; PULSE 97; RESP 20; TEMP 97.9; O2SAT 93
[2016-07-21] MEDS: METOPROLOL TARTRATE 25 MG TAB PO SCH ×2 (09:00→20:55)
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
[2016-07-21] MEDS: FLUCONAZOLE 200 MG TAB PO SCH (09:56)
[2016-07-21] MEDS: SODIUM CHLORIDE 0.9% FLUSH 5 ML FLUSH IV FLUSH SCH ×2 (09:56→20:55)
[2016-07-21] MEDS: TAMSULOSIN HCL 0.4 MG CAP PO SCH (09:56)
[2016-07-21] MEDS: DOCUSATE SODIUM 100 MG CAP PO SCH ×2 (09:56→20:55)
--- NOTE | 2016-07-21 11:00 | RADRPT ---
EXAM DATE/TIME: 07/21/2016 10:09 [facility] COMPARISON: CHEST SINGLE AP, July 17, 2016, 0:01. INDICATIONS : Short of Breath. MEDICAL HISTORY : Dyspnea. HIV. MRSA. SURGICAL HISTORY : Leg surgery. ENCOUNTER: Subsequent ACUITY: 3 weeks PAIN SCORE: Non-responsive. LOCATION: Bilateral chest FINDINGS: Portable AP view of the chest demonstrates a normal size cardiac silhouette. Lungs are underinflated and there is bibasilar airspace opacity, left greater than right. There is blunting of the left costo phrenic sulcus. No pneumothorax is visualized. Bones and soft tissues demonstrate no acute finding. CONCLUSION: Persistent airspace consolidation at the left lung base and new atelectasis versus consolidation at t he right lung base. Darrius Palma MD on July 21, 2016 at 10:58 Board Certified Radiologist. This report was verified electronically.
[2016-07-21] MEDS: AZTREONAM INJ 1,000 MG in SODIUM CHLORIDE 0.9% INJ 100 ML IV SCH (11:29)
[2016-07-21] MEDS: SODIUM BICARBONATE 8.4% INJ 75 MEQ in SODIUM CHLOR 0.45% 1000 ML INJ 1,000 ML IV SCH (11:30)
[2016-07-21 12:00] VITALS: BP 127/72; PULSE 96; RESP 20; TEMP 97.8; O2SAT 95
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
[2016-07-21] MEDS: NYSTATIN SUSP 500,000 U/5 ML CUP SWISH-SWAL SCH ×2 (17:52→20:54)
[2016-07-21 20:00] VITALS: BP 134/77; PULSE 104; RESP 24; TEMP 97.8; O2SAT 93
[2016-07-21] MEDS: FAMOTIDINE 20 MG TAB PO SCH (20:55)
[2016-07-21] MEDS: PRAVASTATIN SOD 40 MG TAB PO SCH (20:55)
[2016-07-22] VITALS: BP 144/80; PULSE 98; RESP 22; TEMP 97.4; O2SAT 94
[2016-07-22] MEDS: oxyCODONE/ACETAMINOPHEN 5 MG/325 MG TAB PO PRN (01:05)
[2016-07-22 05:25] LABS: HEMATOCRIT 23.2 % (39.0-51.0); MEAN CELL VOLUME 82.1 FL (80.0-100.0); MEAN CORPUSCULAR HEMOGLOBIN 28.8 PG (27.0-34.0); PLATELET COUNT 155 TH/MM3 (150-450); RED BLOOD COUNT 2.82 MIL/MM3 (4.50-5.90); RED CELL DISTRIBUTION WIDTH 15.2 % (11.6-17.2)
[2016-07-22 05:36] LABS: HEMO FLAGS AUTO DIFF
[2016-07-22 05:58] LABS: BICARBONATE 26.6 MEQ/L (21.0-32.0); CALCIUM-PROTEIN CORRECTED 8.3 MG/DL (8.5-10.1); POTASSIUM 3.8 MEQ/L (3.5-5.1); TOTAL BILIRUBIN ADULT 1.5 MG/DL (0.2-1.0)
[2016-07-22 08:00] VITALS: BP 132/75; PULSE 98; RESP 21; TEMP 98.4; O2SAT 95
[2016-07-22] MEDS: TAMSULOSIN HCL 0.4 MG CAP PO SCH (09:41)
[2016-07-22] MEDS: DOCUSATE SODIUM 100 MG CAP PO SCH ×2 (09:41→22:12)
[2016-07-22] MEDS: FLUCONAZOLE 200 MG TAB PO SCH (09:41)
[2016-07-22] MEDS: METOPROLOL TARTRATE 25 MG TAB PO SCH ×2 (09:42→22:11)
[2016-07-22] MEDS: SODIUM CHLORIDE 0.9% FLUSH 5 ML FLUSH IV FLUSH SCH ×2 (09:42→22:12)
[2016-07-22] MEDS: NYSTATIN SUSP 500,000 U/5 ML CUP SWISH-SWAL SCH ×4 (09:42→22:11)
[2016-07-22 10:20] VITALS: O2SAT 98
[2016-07-22 10:42] LABS: BANDS 1 % (0-6); NEUTROPHIL # MANUAL DIFF 3.9 TH/MM3 (1.8-7.7); PLATELET ESTIMATE SMEAR NORMAL (NORMAL); PLATELET MORPHOLOGY NORMAL (NORMAL); POLYS (SEG NEUTROPHILS) 64 % (16-70); SCAN/DIFF FINAL DIFF MANUAL; TARGET CELLS 1+ (NORMAL); WBC DIFF SAMPLE 100
[2016-07-22 10:43] LABS: OVALOCYTES 1+ (NORMAL)
[2016-07-22 12:00] VITALS: BP 129/80; PULSE 95; RESP 19; TEMP 98.1; O2SAT 95
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
[2016-07-22] MEDS: AZTREONAM INJ 1,000 MG in SODIUM CHLORIDE 0.9% INJ 100 ML IV SCH (13:49)
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
[2016-07-22 16:00] VITALS: BP 143/76; PULSE 82; RESP 19; TEMP 98.9; O2SAT 97
[2016-07-22 20:00] VITALS: BP 148/78; PULSE 80; RESP 22; TEMP 98.9; O2SAT 98
[2016-07-22] MEDS: PRAVASTATIN SOD 40 MG TAB PO SCH (22:11)
[2016-07-22] MEDS: FAMOTIDINE 20 MG TAB PO SCH (22:11)
[2016-07-23] VITALS: BP 144/82; PULSE 78; RESP 20; TEMP 98.8; O2SAT 97
[2016-07-23 08:00] VITALS: BP 116/69; PULSE 101; RESP 20; TEMP 97.8; O2SAT 90
[2016-07-23 08:29] VITALS: O2SAT 96
[2016-07-23] MEDS: SODIUM CHLORIDE 0.9% FLUSH 5 ML FLUSH IV FLUSH SCH ×2 (09:00→22:00)
[2016-07-23] MEDS: DOCUSATE SODIUM 100 MG CAP PO SCH ×2 (09:50→21:00)
[2016-07-23] MEDS: FLUCONAZOLE 200 MG TAB PO SCH (09:50)
[2016-07-23] MEDS: TAMSULOSIN HCL 0.4 MG CAP PO SCH (09:50)
[2016-07-23] MEDS: METOPROLOL TARTRATE 25 MG TAB PO SCH ×2 (09:50→22:00)
[2016-07-23] MEDS: AZITHROMYCIN 600 MG TAB PO SCH (09:50)
[2016-07-23] MEDS: NYSTATIN SUSP 500,000 U/5 ML CUP SWISH-SWAL SCH ×4 (09:50→21:59)
[2016-07-23 11:27] LABS: BICARBONATE 21.6 MEQ/L (21.0-32.0); POTASSIUM 4.5 MEQ/L (3.5-5.1)
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
[2016-07-23 12:00] VITALS: BP 133/74; PULSE 98; RESP 29; TEMP 99.8; O2SAT 90
[2016-07-23] MEDS: AZTREONAM INJ 1,000 MG in SODIUM CHLORIDE 0.9% INJ 100 ML IV SCH (12:10)
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
[2016-07-23 16:00] VITALS: BP 133/71; PULSE 98; RESP 28; TEMP 99.8; O2SAT 93
[2016-07-23 20:00] VITALS: BP 124/60; PULSE 110; RESP 19; TEMP 100.7; O2SAT 94
[2016-07-23] MEDS: PRAVASTATIN SOD 40 MG TAB PO SCH (22:00)
[2016-07-23] MEDS: FAMOTIDINE 20 MG TAB PO SCH (22:00)
[2016-07-24] VITALS: BP 119/60; PULSE 104; RESP 19; TEMP 99; O2SAT 95
[2016-07-24 04:00] VITALS: TEMP 97.7
[2016-07-24 05:53] LABS: BICARBONATE 24.5 MEQ/L (21.0-32.0); POTASSIUM 4.3 MEQ/L (3.5-5.1)
[2016-07-24 08:00] VITALS: BP 132/74; PULSE 98; RESP 18; TEMP 97.1; O2SAT 92
[2016-07-24] MEDS: NYSTATIN SUSP 500,000 U/5 ML CUP SWISH-SWAL SCH ×4 (08:43→21:10)
[2016-07-24] MEDS: METOPROLOL TARTRATE 25 MG TAB PO SCH ×2 (08:44→21:10)
[2016-07-24] MEDS: TAMSULOSIN HCL 0.4 MG CAP PO SCH ×2 (08:44→09:00)
[2016-07-24] MEDS: DOCUSATE SODIUM 100 MG CAP PO SCH ×3 (08:44→21:10)
[2016-07-24] MEDS: SODIUM CHLORIDE 0.9% FLUSH 5 ML FLUSH IV FLUSH SCH ×2 (09:00→21:11)
[2016-07-24] MEDS: AZTREONAM INJ 1,000 MG in SODIUM CHLORIDE 0.9% INJ 100 ML IV SCH (11:45)
[2016-07-24 12:00] VITALS: BP 139/83; PULSE 84; RESP 21; TEMP 96.4; O2SAT 96
[2016-07-24] MEDS: CALCIUM ACETATE 667 MG CAP PO SCH ×2 (13:00→17:57)
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
[2016-07-24 16:00] VITALS: BP 133/80; PULSE 83; RESP 19; TEMP 96.8; O2SAT 97
[2016-07-24] MEDS: HEPARIN SODIUM - IV 10,000 UNITS/10 ML VIAL PRN (17:22)
[2016-07-24] MEDS: GENTAMICIN SULFATE (DIALYSIS USE ONLY) 20 MG/2 ML VIAL IV PRN (17:23)
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
[2016-07-24 20:00] VITALS: BP 153/76; PULSE 86; RESP 19; TEMP 96.8; O2SAT 95
[2016-07-24] MEDS: PRAVASTATIN SOD 40 MG TAB PO SCH (21:10)
[2016-07-24] MEDS: FAMOTIDINE 20 MG TAB PO SCH (21:10)
[2016-07-25] VITALS: BP 137/72; PULSE 80; RESP 17; TEMP 97; O2SAT 96
[2016-07-25 07:17] LABS: MEAN CELL VOLUME 84.6 FL (80.0-100.0); MEAN CORPUSCULAR HEMOGLOBIN 28.4 PG (27.0-34.0); MEAN CORPUSCULAR HGB CONC 33.6 % (32.0-36.0); PLATELET COUNT 248 TH/MM3 (150-450); RED BLOOD COUNT 2.83 MIL/MM3 (4.50-5.90); WHITE BLOOD COUNT 8.7 TH/MM3 (4.0-11.0)
[2016-07-25 07:25] LABS: HEMO FLAGS AUTO DIFF
[2016-07-25 07:50] LABS: BICARBONATE 30.1 MEQ/L (21.0-32.0)
[2016-07-25 07:51] LABS: POTASSIUM 4.6 MEQ/L (3.5-5.1)
[2016-07-25 08:00] VITALS: BP 133/77; PULSE 91; RESP 17; TEMP 94.3; O2SAT 97
[2016-07-25 08:14] LABS: PLATELET ESTIMATE SMEAR NORMAL (NORMAL); POLYS (SEG NEUTROPHILS) 69 % (16-70); SCAN/DIFF FINAL DIFF MANUAL; WBC DIFF SAMPLE 100
[2016-07-25 08:15] LABS: PLATELET MORPHOLOGY NORMAL (NORMAL)
[2016-07-25] MEDS: DOCUSATE SODIUM 100 MG CAP PO SCH ×2 (08:49→21:41)
[2016-07-25] MEDS: TAMSULOSIN HCL 0.4 MG CAP PO SCH (08:49)
[2016-07-25] MEDS: METOPROLOL TARTRATE 25 MG TAB PO SCH ×2 (08:49→21:41)
[2016-07-25] MEDS: NYSTATIN SUSP 500,000 U/5 ML CUP SWISH-SWAL SCH ×4 (08:49→21:40)
[2016-07-25] MEDS: CALCIUM ACETATE 667 MG CAP PO SCH ×3 (08:49→16:41)
[2016-07-25] MEDS: SODIUM CHLORIDE 0.9% FLUSH 5 ML FLUSH IV FLUSH SCH ×2 (08:50→21:41)
[2016-07-25] MEDS: RESP: ALBUTEROL 2.5 MG/IPRATROPIUM 0.5 MG NEB (PRN) INH (10:04)
[2016-07-25 10:05] VITALS: O2SAT 96
[2016-07-25] MEDS: PENTAMIDINE ISETHIONATE 300 MG NEB SCH (10:18)
[2016-07-25] MEDS: AZTREONAM INJ 1,000 MG in SODIUM CHLORIDE 0.9% INJ 100 ML IV SCH (11:26)
[2016-07-25 12:00] VITALS: BP 133/80; PULSE 94; RESP 19; TEMP 95.5; O2SAT 95
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
[2016-07-25 16:00] VITALS: BP 115/70; PULSE 87; RESP 17; TEMP 95.6; O2SAT 98
[2016-07-25 20:00] VITALS: BP 136/80; PULSE 84; RESP 17; TEMP 98.9; O2SAT 98
[2016-07-25] MEDS: FAMOTIDINE 20 MG TAB PO SCH (21:41)
[2016-07-25] MEDS: PRAVASTATIN SOD 40 MG TAB PO SCH (21:41)
[2016-07-26] VITALS: BP 132/78; PULSE 78; RESP 17; TEMP 96.1; O2SAT 94
[2016-07-26 08:00] VITALS: BP 129/60; PULSE 74; RESP 18; TEMP 96.2; O2SAT 92
[2016-07-26] MEDS: NYSTATIN SUSP 500,000 U/5 ML CUP SWISH-SWAL SCH ×4 (10:31→22:14)
[2016-07-26] MEDS: CALCIUM ACETATE 667 MG CAP PO SCH ×3 (10:31→18:11)
[2016-07-26] MEDS: DOCUSATE SODIUM 100 MG CAP PO SCH ×2 (10:31→22:13)
[2016-07-26] MEDS: SODIUM CHLORIDE 0.9% FLUSH 5 ML FLUSH IV FLUSH SCH ×2 (10:31→21:00)
[2016-07-26] MEDS: TAMSULOSIN HCL 0.4 MG CAP PO SCH (10:31)
[2016-07-26] MEDS: METOPROLOL TARTRATE 25 MG TAB PO SCH ×2 (10:32→22:14)
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
[2016-07-26 12:00] VITALS: BP 120/73; PULSE 78; RESP 18; TEMP 96.3; O2SAT 92
[2016-07-26] MEDS: AZTREONAM INJ 1,000 MG in SODIUM CHLORIDE 0.9% INJ 100 ML IV SCH (12:00)
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
[2016-07-26 12:53] LABS: BICARBONATE 25.9 MEQ/L (21.0-32.0); POTASSIUM 4.6 MEQ/L (3.5-5.1)
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
[2016-07-26] MEDS: GENTAMICIN SULFATE (DIALYSIS USE ONLY) 20 MG/2 ML VIAL IV PRN (15:59)
[2016-07-26] MEDS: HEPARIN SODIUM - IV 10,000 UNITS/10 ML VIAL PRN (15:59)
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
[2016-07-26 20:00] VITALS: BP 123/79; PULSE 84; RESP 18; TEMP 96; O2SAT 95
[2016-07-26] MEDS: FAMOTIDINE 20 MG TAB PO SCH (22:13)
[2016-07-26] MEDS: PRAVASTATIN SOD 40 MG TAB PO SCH (22:13)
[2016-07-27] VITALS: BP 136/83; PULSE 84; RESP 18; TEMP 96.9; O2SAT 95
[2016-07-27 06:26] LABS: BICARBONATE 31.8 MEQ/L (21.0-32.0); POTASSIUM 4.6 MEQ/L (3.5-5.1)
[2016-07-27 08:00] VITALS: BP 128/81; PULSE 83; RESP 16; TEMP 97.6; O2SAT 96
[2016-07-27] MEDS: METOPROLOL TARTRATE 25 MG TAB PO SCH ×2 (09:12→21:03)
[2016-07-27] MEDS: CALCIUM ACETATE 667 MG CAP PO SCH ×3 (09:12→18:00)
[2016-07-27] MEDS: TAMSULOSIN HCL 0.4 MG CAP PO SCH (09:13)
[2016-07-27] MEDS: DOCUSATE SODIUM 100 MG CAP PO SCH ×2 (09:13→21:03)
[2016-07-27] MEDS: NYSTATIN SUSP 500,000 U/5 ML CUP SWISH-SWAL SCH ×4 (09:17→21:03)
[2016-07-27] MEDS: SODIUM CHLORIDE 0.9% FLUSH 5 ML FLUSH IV FLUSH SCH ×2 (09:21→21:00)
[2016-07-27 10:07] LABS: ALBUMIN SPE 2.1 GM/DL (3.50-5.00); ALPHA 1 GLOBULIN 0.36 GM/DL (0.11-0.29); ALPHA 2 GLOBULIN 0.89 GM/DL (0.22-1.00); BETA GLOBULINS (SPE) 1.01 GM/DL (0.53-1.03)
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
[2016-07-27 12:00] VITALS: BP 126/76; PULSE 73; RESP 18; TEMP 97.8; O2SAT 97
[2016-07-27] MEDS: AZTREONAM INJ 1,000 MG in SODIUM CHLORIDE 0.9% INJ 100 ML IV SCH (13:56)
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
[2016-07-27 16:00] VITALS: BP 124/76; PULSE 78; RESP 16; TEMP 97.6; O2SAT 98
[2016-07-27 20:00] VITALS: BP 116/65; PULSE 72; RESP 18; TEMP 97.7; O2SAT 96
[2016-07-27] MEDS: PRAVASTATIN SOD 40 MG TAB PO SCH (21:03)
[2016-07-27] MEDS: FAMOTIDINE 20 MG TAB PO SCH (21:03)
[2016-07-27] MEDS: oxyCODONE/ACETAMINOPHEN 5 MG/325 MG TAB PO PRN (21:47)
[2016-07-27] MEDS: ACETAMINOPHEN 325 MG TAB PO PRN (21:53)
[2016-07-28] VITALS: BP 130/79; PULSE 72; RESP 18; TEMP 97.5; O2SAT 96
[2016-07-28 06:00] LABS: POTASSIUM 4.4 MEQ/L (3.5-5.1)
[2016-07-28 06:03] LABS: HEMATOCRIT 22.1 % (39.0-51.0); MEAN CELL VOLUME 84.4 FL (80.0-100.0); MEAN CORPUSCULAR HEMOGLOBIN 28.7 PG (27.0-34.0); PLATELET COUNT 333 TH/MM3 (150-450); RED BLOOD COUNT 2.62 MIL/MM3 (4.50-5.90); RED CELL DISTRIBUTION WIDTH 15.5 % (11.6-17.2); REVIEW FLAG FINAL; WHITE BLOOD COUNT 6.7 TH/MM3 (4.0-11.0)
[2016-07-28 08:00] VITALS: BP 135/74; PULSE 75; RESP 19; TEMP 97.9; O2SAT 95
[2016-07-28] MEDS: CALCIUM ACETATE 667 MG CAP PO SCH ×3 (08:21→18:00)
[2016-07-28] MEDS: METOPROLOL TARTRATE 25 MG TAB PO SCH ×2 (08:21→20:49)
[2016-07-28] MEDS: SODIUM CHLORIDE 0.9% FLUSH 5 ML FLUSH IV FLUSH SCH ×2 (08:21→20:49)
[2016-07-28] MEDS: DOCUSATE SODIUM 100 MG CAP PO SCH ×2 (08:22→20:49)
[2016-07-28] MEDS: NYSTATIN SUSP 500,000 U/5 ML CUP SWISH-SWAL SCH ×4 (08:22→20:49)
[2016-07-28] MEDS: TAMSULOSIN HCL 0.4 MG CAP PO SCH (08:22)
[2016-07-28] MEDS: ACETAMINOPHEN 325 MG TAB PO PRN (08:27)
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
[2016-07-28] MEDS: GENTAMICIN SULFATE (DIALYSIS USE ONLY) 20 MG/2 ML VIAL IV PRN (19:03)
[2016-07-28 20:00] VITALS: BP 129/77; PULSE 93; RESP 20; TEMP 97.1; O2SAT 95
[2016-07-28] MEDS: FAMOTIDINE 20 MG TAB PO SCH (20:49)
[2016-07-28] MEDS: PRAVASTATIN SOD 40 MG TAB PO SCH (20:49)
[2016-07-29] VITALS (7 sets, daily range): BP systolic 124–146; BP diastolic 73–85; PULSE 76–93; RESP 17–20; TEMP 97.3–98.3; O2SAT 93–98
[2016-07-29 05:23] LABS: HEMATOCRIT 21.6 % (39.0-51.0); MEAN CELL VOLUME 83.6 FL (80.0-100.0); MEAN CORPUSCULAR HEMOGLOBIN 28.2 PG (27.0-34.0); MEAN CORPUSCULAR HGB CONC 33.7 % (32.0-36.0); PLATELET COUNT 378 TH/MM3 (150-450); RED BLOOD COUNT 2.58 MIL/MM3 (4.50-5.90); RED CELL DISTRIBUTION WIDTH 15.4 % (11.6-17.2); REVIEW FLAG FINAL; WHITE BLOOD COUNT 8.4 TH/MM3 (4.0-11.0)
[2016-07-29 05:28] LABS: BICARBONATE 31.5 MEQ/L (21.0-32.0); POTASSIUM 4.3 MEQ/L (3.5-5.1)
[2016-07-29] MEDS: METOPROLOL TARTRATE 25 MG TAB PO SCH ×2 (08:06→19:36)
[2016-07-29] MEDS: CALCIUM ACETATE 667 MG CAP PO SCH ×3 (08:06→16:43)
[2016-07-29] MEDS: DOCUSATE SODIUM 100 MG CAP PO SCH ×2 (08:06→19:36)
[2016-07-29] MEDS: TAMSULOSIN HCL 0.4 MG CAP PO SCH (08:06)
[2016-07-29] MEDS: ACETAMINOPHEN 325 MG TAB PO PRN ×2 (08:07→16:43)
[2016-07-29] MEDS: SODIUM CHLORIDE 0.9% FLUSH 5 ML FLUSH IV FLUSH SCH ×2 (08:07→19:36)
[2016-07-29] MEDS: NYSTATIN SUSP 500,000 U/5 ML CUP SWISH-SWAL SCH ×4 (08:07→19:37)
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
[2016-07-29] MEDS: ONDANSETRON HCL 4 MG/2 ML VIAL IV PRN (11:25)
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
[2016-07-29] MEDS ORDERED: SODIUM CHLOR 0.9% 250 ML INJ 250 ML IV ONE (11:45)
[2016-07-29] MEDS: FAMOTIDINE 20 MG TAB PO SCH (19:36)
[2016-07-29] MEDS: PRAVASTATIN SOD 40 MG TAB PO SCH (19:36)
[2016-07-30] VITALS: BP 145/85; PULSE 79; RESP 18; TEMP 98.2; O2SAT 93
[2016-07-30 00:59] VITALS: BP 139/75; PULSE 89; RESP 20; TEMP 98.6; O2SAT 95
[2016-07-30 05:18] LABS: HEMATOCRIT 23.5 % (39.0-51.0); MEAN CELL VOLUME 84.1 FL (80.0-100.0); MEAN CORPUSCULAR HEMOGLOBIN 29.6 PG (27.0-34.0); MEAN CORPUSCULAR HGB CONC 35.2 % (32.0-36.0); PLATELET COUNT 422 TH/MM3 (150-450); RED CELL DISTRIBUTION WIDTH 15.4 % (11.6-17.2); REVIEW FLAG FINAL; WHITE BLOOD COUNT 12.2 TH/MM3 (4.0-11.0)
[2016-07-30 05:50] LABS: BICARBONATE 30.8 MEQ/L (21.0-32.0); POTASSIUM 4.6 MEQ/L (3.5-5.1)
[2016-07-30 08:00] VITALS: BP 133/80; PULSE 91; RESP 16; TEMP 98.4; O2SAT 90
[2016-07-30] MEDS: TAMSULOSIN HCL 0.4 MG CAP PO SCH (09:42)
[2016-07-30] MEDS: AZITHROMYCIN 600 MG TAB PO SCH (09:43)
[2016-07-30] MEDS: NYSTATIN SUSP 500,000 U/5 ML CUP SWISH-SWAL SCH ×4 (09:43→21:10)
[2016-07-30] MEDS: METOPROLOL TARTRATE 25 MG TAB PO SCH ×2 (09:43→21:10)
[2016-07-30] MEDS: DOCUSATE SODIUM 100 MG CAP PO SCH ×2 (09:43→21:10)
[2016-07-30] MEDS: CALCIUM ACETATE 667 MG CAP PO SCH ×3 (09:43→17:15)
[2016-07-30] MEDS: SODIUM CHLORIDE 0.9% FLUSH 5 ML FLUSH IV FLUSH SCH ×2 (09:44→21:10)
[2016-07-30] MEDS: oxyCODONE/ACETAMINOPHEN 5 MG/325 MG TAB PO PRN (09:49)
[2016-07-30] MEDS: ONDANSETRON HCL 4 MG/2 ML VIAL IV PRN (09:50)
[2016-07-30 12:00] VITALS: BP 132/81; PULSE 91; RESP 18; TEMP 98; O2SAT 90
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
[2016-07-30] MEDS ORDERED: TEMAZEPAM 15 MG CAP PO PRN (14:15)
[2016-07-30 16:00] VITALS: BP 131/70; PULSE 83; RESP 17; TEMP 98.2; O2SAT 90
[2016-07-30] MEDS: LORazepam 2 MG/ML VIAL IV PRN (17:15)
[2016-07-30 20:00] VITALS: BP 120/67; PULSE 97; RESP 22; TEMP 96.6; O2SAT 92
[2016-07-30] MEDS: PRAVASTATIN SOD 40 MG TAB PO SCH (21:10)
[2016-07-30] MEDS: FAMOTIDINE 20 MG TAB PO SCH (21:11)
[2016-07-31] VITALS (7 sets, daily range): BP systolic 121–152; BP diastolic 69–92; PULSE 90–116; RESP 18–22; TEMP 96.4–100; O2SAT 86–99
[2016-07-31 05:49] LABS: HEMATOCRIT 23.6 % (39.0-51.0); MEAN CELL VOLUME 83.7 FL (80.0-100.0); MEAN CORPUSCULAR HEMOGLOBIN 28.7 PG (27.0-34.0); MEAN CORPUSCULAR HGB CONC 34.3 % (32.0-36.0); PLATELET COUNT 438 TH/MM3 (150-450); RED BLOOD COUNT 2.82 MIL/MM3 (4.50-5.90); RED CELL DISTRIBUTION WIDTH 14.8 % (11.6-17.2); REVIEW FLAG FINAL; WHITE BLOOD COUNT 10.9 TH/MM3 (4.0-11.0)
[2016-07-31 06:08] LABS: BICARBONATE 27.3 MEQ/L (21.0-32.0); POTASSIUM 4.8 MEQ/L (3.5-5.1)
[2016-07-31] MEDS: TAMSULOSIN HCL 0.4 MG CAP PO SCH (09:25)
[2016-07-31] MEDS: METOPROLOL TARTRATE 25 MG TAB PO SCH ×2 (09:25→20:14)
[2016-07-31] MEDS: SODIUM CHLORIDE 0.9% FLUSH 5 ML FLUSH IV FLUSH SCH ×2 (09:25→20:15)
[2016-07-31] MEDS: DOCUSATE SODIUM 100 MG CAP PO SCH ×2 (09:25→20:14)
[2016-07-31] MEDS: CALCIUM ACETATE 667 MG CAP PO SCH ×3 (09:25→17:08)
[2016-07-31] MEDS: NYSTATIN SUSP 500,000 U/5 ML CUP SWISH-SWAL SCH ×4 (09:25→20:14)
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
[2016-07-31] MEDS: HEPARIN SODIUM - IV 10,000 UNITS/10 ML VIAL PRN (11:26)
[2016-07-31] MEDS: GENTAMICIN SULFATE (DIALYSIS USE ONLY) 20 MG/2 ML VIAL IV PRN (11:26)
[2016-07-31] MEDS: SODIUM CHLOR 0.9% 1000 ML INJ 1,000 ML IV PRN ×2 (11:26)
[2016-07-31] MEDS: SODIUM CHLORIDE 0.9% FLUSH 5 ML FLUSH IVF PRN (11:27)
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
[2016-07-31] MEDS: oxyCODONE/ACETAMINOPHEN 5 MG/325 MG TAB PO PRN (17:08)
[2016-07-31] MEDS: FAMOTIDINE 20 MG TAB PO SCH (20:14)
[2016-07-31] MEDS: PRAVASTATIN SOD 40 MG TAB PO SCH (20:15)
[2016-07-31] MEDS: ONDANSETRON HCL 4 MG/2 ML VIAL IV PRN (21:33)
[2016-08-01 08:00] VITALS: BP 121/60; PULSE 94; RESP 17; TEMP 98.7; O2SAT 98
[2016-08-01] MEDS: NYSTATIN SUSP 500,000 U/5 ML CUP SWISH-SWAL SCH ×4 (11:36→19:54)
[2016-08-01] MEDS: TAMSULOSIN HCL 0.4 MG CAP PO SCH (11:37)
[2016-08-01] MEDS: DOCUSATE SODIUM 100 MG CAP PO SCH ×2 (11:37→19:54)
[2016-08-01] MEDS: METOPROLOL TARTRATE 25 MG TAB PO SCH ×2 (11:37→19:54)
[2016-08-01] MEDS: CALCIUM ACETATE 667 MG CAP PO SCH ×3 (11:37→17:44)
[2016-08-01] MEDS: SODIUM CHLORIDE 0.9% FLUSH 5 ML FLUSH IV FLUSH SCH ×2 (11:38→19:57)
[2016-08-01 12:00] VITALS: BP 121/63; PULSE 181; RESP 17; TEMP 97.9; O2SAT 98
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
[2016-08-01 16:00] VITALS: BP 122/67; PULSE 81; RESP 17; TEMP 96.3; O2SAT 97
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
[2016-08-01] MEDS: PRAVASTATIN SOD 40 MG TAB PO SCH (19:54)
[2016-08-01] MEDS: FAMOTIDINE 20 MG TAB PO SCH (19:54)
[2016-08-01 20:00] VITALS: BP 138/80; PULSE 82; RESP 18; TEMP 99.1; O2SAT 96
[2016-08-02] VITALS (8 sets, daily range): BP systolic 124–173; BP diastolic 74–87; PULSE 68–94; RESP 16–20; TEMP 95.4–99.8; O2SAT 94–99
[2016-08-02 04:56] LABS: MEAN CELL VOLUME 84.6 FL (80.0-100.0); MEAN CORPUSCULAR HEMOGLOBIN 29.2 PG (27.0-34.0); MEAN CORPUSCULAR HGB CONC 34.5 % (32.0-36.0); PLATELET COUNT 347 TH/MM3 (150-450); RED BLOOD COUNT 2.42 MIL/MM3 (4.50-5.90); RED CELL DISTRIBUTION WIDTH 15.5 % (11.6-17.2); WHITE BLOOD COUNT 4.5 TH/MM3 (4.0-11.0)
[2016-08-02 05:28] LABS: HEMATOCRIT 20.5 % (39.0-51.0); HEMO FLAGS AUTO DIFF
[2016-08-02 06:53] LABS: BANDS 8 % (0-6); NEUTROPHIL # MANUAL DIFF 3.3 TH/MM3 (1.8-7.7); PLATELET ESTIMATE SMEAR NORMAL (NORMAL); POLYS (SEG NEUTROPHILS) 66 % (16-70); WBC DIFF SAMPLE 100
[2016-08-02 06:54] LABS: PLATELET MORPHOLOGY NORMAL (NORMAL); SCAN/DIFF FINAL DIFF MANUAL
[2016-08-02] MEDS: NYSTATIN SUSP 500,000 U/5 ML CUP SWISH-SWAL SCH ×4 (08:39→20:21)
[2016-08-02] MEDS: SODIUM CHLORIDE 0.9% FLUSH 5 ML FLUSH IV FLUSH SCH ×2 (09:00→20:22)
[2016-08-02] MEDS: CALCIUM ACETATE 667 MG CAP PO SCH ×3 (09:00→17:07)
[2016-08-02] MEDS: METOPROLOL TARTRATE 25 MG TAB PO SCH ×2 (09:00→20:21)
[2016-08-02] MEDS: DOCUSATE SODIUM 100 MG CAP PO SCH ×2 (09:00→20:21)
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
[2016-08-02] MEDS: GENTAMICIN SULFATE (DIALYSIS USE ONLY) 20 MG/2 ML VIAL IV PRN (11:47)
[2016-08-02] MEDS: EPOETIN ALFA 10,000 UNITS/ML VIAL IV PRN (11:47)
[2016-08-02] MEDS: HEPARIN SODIUM - IV 10,000 UNITS/10 ML VIAL PRN (11:47)
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
[2016-08-02] MEDS: TAMSULOSIN HCL 0.4 MG CAP PO SCH (15:22)
[2016-08-02 17:18] LABS: HEMATOCRIT 20.4 % (39.0-51.0); REVIEW FLAG FINAL
[2016-08-02] MEDS: PRAVASTATIN SOD 40 MG TAB PO SCH (20:21)
[2016-08-02] MEDS: FAMOTIDINE 20 MG TAB PO SCH (20:21)
[2016-08-02] MEDS: oxyCODONE/ACETAMINOPHEN 5 MG/325 MG TAB PO PRN (23:02)
[2016-08-03 00:30] VITALS: BP 152/83; PULSE 68; RESP 21; TEMP 98.6; O2SAT 98
[2016-08-03 00:48] VITALS: BP 150/83; PULSE 85
[2016-08-03 08:00] VITALS: BP 150/89; PULSE 86; RESP 14; TEMP 97.2; O2SAT 96
[2016-08-03] MEDS: METOPROLOL TARTRATE 25 MG TAB PO SCH ×2 (08:03→20:24)
[2016-08-03] MEDS: CALCIUM ACETATE 667 MG CAP PO SCH ×3 (08:03→16:51)
[2016-08-03] MEDS: NYSTATIN SUSP 500,000 U/5 ML CUP SWISH-SWAL SCH ×4 (08:03→20:24)
[2016-08-03] MEDS: DOCUSATE SODIUM 100 MG CAP PO SCH ×2 (08:03→20:24)
[2016-08-03] MEDS: TAMSULOSIN HCL 0.4 MG CAP PO SCH (08:03)
[2016-08-03] MEDS: SODIUM CHLORIDE 0.9% FLUSH 5 ML FLUSH IV FLUSH SCH ×2 (09:00→20:25)
[2016-08-03 09:46] LABS: HEMATOCRIT 26.6 % (39.0-51.0); REVIEW FLAG FINAL
[2016-08-03] MEDS: oxyCODONE/ACETAMINOPHEN 5 MG/325 MG TAB PO PRN (10:51)
[2016-08-03 12:00] VITALS: BP 131/69; PULSE 83; RESP 22; O2SAT 95
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
[2016-08-03 16:00] VITALS: BP 155/90; PULSE 81; RESP 20; TEMP 95.6; O2SAT 91
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
[2016-08-03 20:00] VITALS: BP 165/94; PULSE 91; RESP 20; TEMP 97.4; O2SAT 92
[2016-08-03] MEDS: FAMOTIDINE 20 MG TAB PO SCH (20:24)
[2016-08-03] MEDS: PRAVASTATIN SOD 40 MG TAB PO SCH (20:24)
[2016-08-04] VITALS: BP 148/68; PULSE 85; RESP 20; TEMP 99.8; O2SAT 96
[2016-08-04 05:21] LABS: HEMATOCRIT 26.9 % (39.0-51.0); MEAN CELL VOLUME 83.3 FL (80.0-100.0); MEAN CORPUSCULAR HEMOGLOBIN 28.4 PG (27.0-34.0); MEAN CORPUSCULAR HGB CONC 34.1 % (32.0-36.0); PLATELET COUNT 310 TH/MM3 (150-450); RED BLOOD COUNT 3.23 MIL/MM3 (4.50-5.90); RED CELL DISTRIBUTION WIDTH 15.5 % (11.6-17.2); WHITE BLOOD COUNT 6.3 TH/MM3 (4.0-11.0)
[2016-08-04 05:27] LABS: HEMO FLAGS AUTO DIFF
[2016-08-04 05:49] LABS: ALKALINE PHOSPHATASE 510 U/L (45-117); ALT (GPT) 114 U/L (12-78); ANION GAP 9 MEQ/L (5-15); AST (GOT) 91 U/L (15-37); BICARBONATE 28.7 MEQ/L (21.0-32.0); BLOOD UREA NITROGEN 47 MG/DL (7-18); CHLORIDE 96 MEQ/L (98-107); GLOMERULAR FILTRATION RATE 8 ML/MIN (>89); MAGNESIUM 1.5 MG/DL (1.5-2.5); POTASSIUM 4.6 MEQ/L (3.5-5.1); SODIUM (NA) 134 MEQ/L (136-145); TOTAL BILIRUBIN ADULT 0.8 MG/DL (0.2-1.0)
[2016-08-04 08:00] VITALS: BP 149/88; PULSE 100; RESP 24; TEMP 98.6; O2SAT 91
[2016-08-04] MEDS: CALCIUM ACETATE 667 MG CAP PO SCH ×3 (09:00→16:35)
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
[2016-08-04] MEDS: GENTAMICIN SULFATE (DIALYSIS USE ONLY) 20 MG/2 ML VIAL IV PRN (10:50)
[2016-08-04] MEDS: HEPARIN SODIUM - IV 10,000 UNITS/10 ML VIAL PRN (10:50)
[2016-08-04] MEDS: EPOETIN ALFA 10,000 UNITS/ML VIAL IV PRN (10:50)
[2016-08-04 11:10] LABS: BANDS 6 % (0-6); NEUTROPHIL # MANUAL DIFF 4.8 TH/MM3 (1.8-7.7); OVALOCYTES 1+ (NORMAL); PLATELET ESTIMATE SMEAR NORMAL (NORMAL); PLATELET MORPHOLOGY NORMAL (NORMAL); POLYS (SEG NEUTROPHILS) 70 % (16-70); SCAN/DIFF FINAL DIFF MANUAL; WBC DIFF SAMPLE 100
[2016-08-04 12:00] VITALS: BP 126/76; PULSE 98; RESP 20; TEMP 98.1; O2SAT 93
[2016-08-04] MEDS: TAMSULOSIN HCL 0.4 MG CAP PO SCH (12:49)
[2016-08-04] MEDS: DOCUSATE SODIUM 100 MG CAP PO SCH ×2 (12:49→20:29)
[2016-08-04] MEDS: NYSTATIN SUSP 500,000 U/5 ML CUP SWISH-SWAL SCH ×4 (12:49→20:29)
[2016-08-04] MEDS: METOPROLOL TARTRATE 25 MG TAB PO SCH ×2 (12:49→20:29)
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
[2016-08-04 16:00] VITALS: BP 128/76; PULSE 98; RESP 18; TEMP 98.4; O2SAT 94
[2016-08-04] MEDS: oxyCODONE/ACETAMINOPHEN 5 MG/325 MG TAB PO PRN (16:36)
[2016-08-04] MEDS: SODIUM CHLORIDE 0.9% FLUSH 5 ML FLUSH IV FLUSH SCH ×2 (16:36→20:29)
[2016-08-04 20:00] VITALS: BP 157/94; PULSE 85; RESP 20; TEMP 96.5; O2SAT 93
[2016-08-04] MEDS: PRAVASTATIN SOD 40 MG TAB PO SCH (20:29)
[2016-08-04] MEDS: FAMOTIDINE 20 MG TAB PO SCH (20:29)
[2016-08-05] VITALS: BP 146/85; PULSE 90; RESP 20; TEMP 96.5; O2SAT 93
[2016-08-05 07:23] LABS: AUTOMATED NEUTROPHIL # 2.5 TH/MM3 (1.8-7.7); BASOPHIL # 0.1 TH/MM3 (0-0.2); BASOPHIL % 1.3 % (0.0-2.0); EOSINOPHIL % 0.1 % (0.0-4.0); HEMATOCRIT 27.7 % (39.0-51.0); HEMO FLAGS DIFF FINAL; LYMPH % 17.6 % (9.0-44.0); LYMPHOCYTE # 0.7 TH/MM3 (1.0-4.8); MEAN CELL VOLUME 84.4 FL (80.0-100.0); MEAN CORPUSCULAR HEMOGLOBIN 28.3 PG (27.0-34.0); MEAN CORPUSCULAR HGB CONC 33.5 % (32.0-36.0); MONO % 20.9 % (0.0-8.0); NEUT % 60.1 % (16.0-70.0); PLATELET COUNT 245 TH/MM3 (150-450); RED BLOOD COUNT 3.28 MIL/MM3 (4.50-5.90); RED CELL DISTRIBUTION WIDTH 15.4 % (11.6-17.2); WHITE BLOOD COUNT 4.2 TH/MM3 (4.0-11.0)
[2016-08-05 07:33] LABS: POTASSIUM 4.8 MEQ/L (3.5-5.1)
[2016-08-05 08:00] VITALS: BP 143/94; PULSE 84; RESP 18; TEMP 97.5; O2SAT 94
[2016-08-05] MEDS: CALCIUM ACETATE 667 MG CAP PO SCH ×3 (08:40→17:52)
[2016-08-05] MEDS: SODIUM CHLORIDE 0.9% FLUSH 5 ML FLUSH IV FLUSH SCH ×2 (08:48→19:50)
[2016-08-05] MEDS: NYSTATIN SUSP 500,000 U/5 ML CUP SWISH-SWAL SCH ×4 (08:48→19:50)
[2016-08-05] MEDS: DOCUSATE SODIUM 100 MG CAP PO SCH ×2 (08:48→19:49)
[2016-08-05] MEDS: TAMSULOSIN HCL 0.4 MG CAP PO SCH (08:48)
[2016-08-05] MEDS: METOPROLOL TARTRATE 25 MG TAB PO SCH ×2 (08:48→19:49)
[2016-08-05 12:00] VITALS: BP 120/76; PULSE 86; RESP 20; TEMP 97.4; O2SAT 94
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
[2016-08-05 16:00] VITALS: BP 135/82; PULSE 88; RESP 20; TEMP 97.6; O2SAT 95
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
[2016-08-05] MEDS: oxyCODONE/ACETAMINOPHEN 5 MG/325 MG TAB PO PRN (18:55)
[2016-08-05] MEDS: FAMOTIDINE 20 MG TAB PO SCH (19:49)
[2016-08-05] MEDS: PRAVASTATIN SOD 40 MG TAB PO SCH (19:49)
[2016-08-05 20:00] VITALS: BP 151/82; PULSE 93; RESP 20; TEMP 96.7; O2SAT 93
[2016-08-06] VITALS: BP 147/83; PULSE 88; RESP 18; TEMP 97.3; O2SAT 94
[2016-08-06 05:39] LABS: AUTOMATED NEUTROPHIL # 3.2 TH/MM3 (1.8-7.7); BASOPHIL % 0.9 % (0.0-2.0); EOSINOPHIL % 0.2 % (0.0-4.0); HEMATOCRIT 27.1 % (39.0-51.0); HEMO FLAGS DIFF FINAL; LYMPH % 12.6 % (9.0-44.0); LYMPHOCYTE # 0.6 TH/MM3 (1.0-4.8); MEAN CELL VOLUME 83.3 FL (80.0-100.0); MEAN CORPUSCULAR HEMOGLOBIN 28.8 PG (27.0-34.0); MEAN CORPUSCULAR HGB CONC 34.6 % (32.0-36.0); NEUT % 67.3 % (16.0-70.0); PLATELET COUNT 270 TH/MM3 (150-450); RED BLOOD COUNT 3.25 MIL/MM3 (4.50-5.90); RED CELL DISTRIBUTION WIDTH 15.3 % (11.6-17.2); WHITE BLOOD COUNT 4.7 TH/MM3 (4.0-11.0)
[2016-08-06 06:02] LABS: MAGNESIUM 1.6 MG/DL (1.5-2.5)
[2016-08-06 08:00] VITALS: BP 168/96; PULSE 101; RESP 18; TEMP 99.1; O2SAT 90
[2016-08-06] MEDS: METOPROLOL TARTRATE 25 MG TAB PO SCH ×2 (08:21→21:30)
[2016-08-06] MEDS: NYSTATIN SUSP 500,000 U/5 ML CUP SWISH-SWAL SCH ×4 (08:21→21:31)
[2016-08-06] MEDS: TAMSULOSIN HCL 0.4 MG CAP PO SCH (08:21)
[2016-08-06] MEDS: DOCUSATE SODIUM 100 MG CAP PO SCH ×2 (08:21→21:30)
[2016-08-06] MEDS: AZITHROMYCIN 600 MG TAB PO SCH (08:21)
[2016-08-06] MEDS: CALCIUM ACETATE 667 MG CAP PO SCH ×3 (08:23→17:42)
[2016-08-06] MEDS: SODIUM CHLORIDE 0.9% FLUSH 5 ML FLUSH IV FLUSH SCH ×2 (08:24→21:34)
[2016-08-06 12:00] VITALS: BP 158/92; PULSE 104; RESP 17; TEMP 100.2; O2SAT 91
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
[2016-08-06 16:00] VITALS: BP 144/87; PULSE 104; RESP 17; TEMP 97.9; O2SAT 92
--- NOTE | 2016-08-06 16:02 | RADRPT ---
EXAM DATE/TIME: 08/06/2016 12:43 [facility] COMPARISON: CHEST SINGLE AP, July 21, 2016, 10:09. INDICATIONS: Fever. MEDICAL HISTORY: Dyspnea. HIV. MRSA. SURGICAL HISTORY: None. ENCOUNTER: Subsequent ACUITY: 1 month PAIN SCORE: 5/10 LOCATION: Bilateral chest FINDINGS: Dialysis catheter is in good position. Moderate bibasilar parenchymal changes are evident worse on t he left than the right, progressing in the interval. There is no pneumothorax. Portion of bony skel eton visualized unremarkable. CONCLUSION: Increasing parenchymal changes in the left base. Isaias York MD FACR on August 06, 2016 at 13:56 Board Certified Radiologist. This report was verified electronically.
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
[2016-08-06 20:00] VITALS: BP 149/81; PULSE 101; RESP 19; TEMP 97.7; O2SAT 100
[2016-08-06] MEDS: FAMOTIDINE 20 MG TAB PO SCH (21:30)
[2016-08-06] MEDS: PRAVASTATIN SOD 40 MG TAB PO SCH (21:30)
[2016-08-06] MEDS: HEPARIN SODIUM - SQ 10,000 UNITS/ML VIAL SQ SCH (21:31)
[2016-08-07] VITALS: BP 127/71; PULSE 87; RESP 17; TEMP 97.2; O2SAT 100
[2016-08-07 05:16] LABS: BICARBONATE 25.6 MEQ/L (21.0-32.0); POTASSIUM 5.1 MEQ/L (3.5-5.1)
[2016-08-07] MEDS: SODIUM CHLORIDE 0.9% FLUSH 5 ML FLUSH IV FLUSH SCH ×2 (07:59→21:34)
[2016-08-07] MEDS: CALCIUM ACETATE 667 MG CAP PO SCH ×3 (07:59→17:50)
[2016-08-07] MEDS: METOPROLOL TARTRATE 25 MG TAB PO SCH ×2 (07:59→21:27)
[2016-08-07] MEDS: DOCUSATE SODIUM 100 MG CAP PO SCH ×2 (07:59→21:00)
[2016-08-07 08:00] VITALS: BP 150/84; PULSE 88; RESP 19; TEMP 97.3; O2SAT 92
[2016-08-07] MEDS: NYSTATIN SUSP 500,000 U/5 ML CUP SWISH-SWAL SCH ×5 (08:00→21:28)
[2016-08-07] MEDS: TAMSULOSIN HCL 0.4 MG CAP PO SCH (08:00)
[2016-08-07] MEDS: HEPARIN SODIUM - SQ 10,000 UNITS/ML VIAL SQ SCH ×2 (08:00→21:00)
[2016-08-07] MEDS: HEPARIN SODIUM - IV 10,000 UNITS/10 ML VIAL PRN (10:13)
[2016-08-07] MEDS: GENTAMICIN SULFATE (DIALYSIS USE ONLY) 20 MG/2 ML VIAL IV PRN (10:13)
[2016-08-07] MEDS: EPOETIN ALFA 10,000 UNITS/ML VIAL IV PRN (10:13)
[2016-08-07 12:00] VITALS: BP 158/94; PULSE 105; RESP 19; TEMP 97.3; O2SAT 98
[2016-08-07] MEDS: oxyCODONE/ACETAMINOPHEN 5 MG/325 MG TAB PO PRN (15:36)
[2016-08-07 16:00] VITALS: BP 157/98; PULSE 96; RESP 18; TEMP 97.2; O2SAT 100
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
[2016-08-07 20:00] VITALS: BP 150/88; PULSE 90; RESP 19; TEMP 98.6; O2SAT 96
[2016-08-07] MEDS: PRAVASTATIN SOD 40 MG TAB PO SCH (21:27)
[2016-08-07] MEDS: FAMOTIDINE 20 MG TAB PO SCH (21:28)
[2016-08-08] VITALS (7 sets, daily range): BP systolic 132–161; BP diastolic 65–97; PULSE 87–102; RESP 14–20; TEMP 96.3–99.6; O2SAT 95–100
[2016-08-08] MEDS: CALCIUM ACETATE 667 MG CAP PO SCH ×3 (09:00→18:00)
[2016-08-08] MEDS: DOCUSATE SODIUM 100 MG CAP PO SCH ×2 (09:39→20:49)
[2016-08-08] MEDS: TAMSULOSIN HCL 0.4 MG CAP PO SCH (09:39)
[2016-08-08] MEDS: METOPROLOL TARTRATE 25 MG TAB PO SCH ×2 (09:39→20:49)
[2016-08-08] MEDS: NYSTATIN SUSP 500,000 U/5 ML CUP SWISH-SWAL SCH ×4 (09:39→20:48)
[2016-08-08] MEDS: HEPARIN SODIUM - SQ 10,000 UNITS/ML VIAL SQ SCH ×2 (09:40→20:49)
[2016-08-08] MEDS: SODIUM CHLORIDE 0.9% FLUSH 5 ML FLUSH IV FLUSH SCH ×2 (09:41→20:50)
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
[2016-08-08] MEDS: FAMOTIDINE 20 MG TAB PO SCH (20:49)
[2016-08-08] MEDS: PRAVASTATIN SOD 40 MG TAB PO SCH (20:49)
[2016-08-09 08:00] VITALS: BP 148/94; PULSE 84; RESP 16; TEMP 97.3; O2SAT 100
[2016-08-09] MEDS: CALCIUM ACETATE 667 MG CAP PO SCH ×3 (09:00→17:24)
[2016-08-09] MEDS: HEPARIN SODIUM - IV 10,000 UNITS/10 ML VIAL PRN (09:58)
[2016-08-09] MEDS: GENTAMICIN SULFATE (DIALYSIS USE ONLY) 20 MG/2 ML VIAL IV PRN (09:58)
[2016-08-09] MEDS: EPOETIN ALFA 10,000 UNITS/ML VIAL IV PRN (09:58)
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
[2016-08-09 12:00] VITALS: BP 142/98; PULSE 97; RESP 16; TEMP 96.5; O2SAT 100
[2016-08-09] MEDS: NYSTATIN SUSP 500,000 U/5 ML CUP SWISH-SWAL SCH ×4 (12:01→21:53)
[2016-08-09] MEDS: TAMSULOSIN HCL 0.4 MG CAP PO SCH (12:01)
[2016-08-09] MEDS: METOPROLOL TARTRATE 25 MG TAB PO SCH ×2 (12:02→21:53)
[2016-08-09] MEDS: HEPARIN SODIUM - SQ 10,000 UNITS/ML VIAL SQ SCH ×2 (12:02→21:00)
[2016-08-09] MEDS: DOCUSATE SODIUM 100 MG CAP PO SCH ×2 (12:02→21:53)
[2016-08-09] MEDS: SODIUM CHLORIDE 0.9% FLUSH 5 ML FLUSH IV FLUSH SCH ×2 (12:02→21:54)
[2016-08-09 16:00] VITALS: BP 118/75; PULSE 91; RESP 16; TEMP 97.2; O2SAT 98
--- NOTE | 2016-08-09 16:25 | PD.RAD ---
Post Procedure Progress Note Pre Procedure Diagnosis: (1) Acute kidney injury (2) Poorly functioning dialysis catheter Post Procedure Diagnosis: (1) Acute kidney injury (2) Poorly functioning dialysis catheter Procedure Date: Aug 09, 2016 Supervising Radiologist: Harshil Raines Proceduralist/Assist: Kaylen Franco RT(R), Mary Lennon RT(R)() Anesthesia: Local Plan of Activity Patient to Unit: Nursing Unit Patient Condition: Good See PACS Report for procedural detail/treatment Central Venous Access Device Procedure 1 Right Internal Jugular Hemodialysis Catheter Non-Tunneled Exchange dual lumen [place]: 15 PICC Line Length (cm): 15 Harshil Raines MD Aug 09, 2016 16:25
[2016-08-09] MEDS ORDERED: SODIUM CHLORIDE 0.9% FLUSH 5 ML FLUSH IVF PRN (16:30)
[2016-08-09 20:00] VITALS: BP 120/80; PULSE 90; RESP 18; TEMP 97; O2SAT 100
[2016-08-09] MEDS: PRAVASTATIN SOD 40 MG TAB PO SCH (21:53)
[2016-08-09] MEDS: FAMOTIDINE 20 MG TAB PO SCH (21:53)
[2016-08-10] VITALS: BP 118/76; PULSE 86; RESP 20; TEMP 97.8; O2SAT 97
[2016-08-10 04:00] VITALS: BP 118/76; PULSE 86; RESP 20; TEMP 97.8; O2SAT 97
[2016-08-10 08:00] VITALS: BP 131/83; PULSE 98; RESP 16; TEMP 97.6; O2SAT 97
[2016-08-10] MEDS: METOPROLOL TARTRATE 25 MG TAB PO SCH ×2 (08:34→19:57)
[2016-08-10] MEDS: TAMSULOSIN HCL 0.4 MG CAP PO SCH (08:34)
[2016-08-10] MEDS: DOCUSATE SODIUM 100 MG CAP PO SCH ×2 (08:34→20:00)
[2016-08-10] MEDS: NYSTATIN SUSP 500,000 U/5 ML CUP SWISH-SWAL SCH ×4 (08:34→19:59)
[2016-08-10] MEDS: HEPARIN SODIUM - SQ 10,000 UNITS/ML VIAL SQ SCH ×2 (08:35→19:58)
[2016-08-10] MEDS: SODIUM CHLORIDE 0.9% FLUSH 5 ML FLUSH IV FLUSH SCH ×2 (08:41→19:55)
[2016-08-10] MEDS: CALCIUM ACETATE 667 MG CAP PO SCH ×3 (08:41→18:00)
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
[2016-08-10 12:00] VITALS: BP 135/85; PULSE 85; RESP 16; TEMP 98.8; O2SAT 97
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
[2016-08-10 16:00] VITALS: BP 143/96; PULSE 91; RESP 16; TEMP 97.5; O2SAT 98
[2016-08-10] MEDS: oxyCODONE/ACETAMINOPHEN 5 MG/325 MG TAB PO PRN (16:45)
[2016-08-10] MEDS: FAMOTIDINE 20 MG TAB PO SCH (19:57)
[2016-08-10] MEDS: PRAVASTATIN SOD 40 MG TAB PO SCH (19:58)
[2016-08-10 20:00] VITALS: BP 106/72; PULSE 92; RESP 18; TEMP 97; O2SAT 95
[2016-08-11] VITALS: BP 112/69; PULSE 88; RESP 20; TEMP 97.6; O2SAT 94
[2016-08-11 05:27] LABS: HEMATOCRIT 32.1 % (39.0-51.0); MEAN CORPUSCULAR HEMOGLOBIN 27.9 PG (27.0-34.0); MEAN CORPUSCULAR HGB CONC 33.7 % (32.0-36.0); PLATELET COUNT 185 TH/MM3 (150-450); RED BLOOD COUNT 3.87 MIL/MM3 (4.50-5.90); RED CELL DISTRIBUTION WIDTH 15.8 % (11.6-17.2); REVIEW FLAG FINAL; WHITE BLOOD COUNT 5.5 TH/MM3 (4.0-11.0)
[2016-08-11 05:36] LABS: BICARBONATE 22.6 MEQ/L (21.0-32.0); POTASSIUM 5.6 MEQ/L (3.5-5.1)
[2016-08-11] MEDS: oxyCODONE/ACETAMINOPHEN 5 MG/325 MG TAB PO PRN (05:44)
[2016-08-11] MEDS: NYSTATIN SUSP 500,000 U/5 ML CUP SWISH-SWAL SCH ×4 (07:46→20:48)
[2016-08-11] MEDS: SODIUM CHLORIDE 0.9% FLUSH 5 ML FLUSH IV FLUSH SCH (07:47)
[2016-08-11] MEDS: METOPROLOL TARTRATE 25 MG TAB PO SCH ×2 (07:47→20:47)
[2016-08-11] MEDS: HEPARIN SODIUM - SQ 10,000 UNITS/ML VIAL SQ SCH ×2 (07:47→20:48)
[2016-08-11] MEDS: CALCIUM ACETATE 667 MG CAP PO SCH ×3 (07:47→17:06)
[2016-08-11] MEDS: DOCUSATE SODIUM 100 MG CAP PO SCH ×2 (07:47→20:47)
[2016-08-11] MEDS: TAMSULOSIN HCL 0.4 MG CAP PO SCH (07:47)
[2016-08-11 08:00] VITALS: BP 117/63; PULSE 102; RESP 17; TEMP 95.8; O2SAT 97
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
[2016-08-11] MEDS: EPOETIN ALFA 10,000 UNITS/ML VIAL IV PRN (11:18)
[2016-08-11] MEDS: GENTAMICIN SULFATE (DIALYSIS USE ONLY) 20 MG/2 ML VIAL IV PRN (11:18)
[2016-08-11 12:00] VITALS: BP 124/76; PULSE 88; RESP 17; TEMP 95.4; O2SAT 95
[2016-08-11 16:00] VITALS: BP 138/76; PULSE 88; RESP 17; TEMP 98.1; O2SAT 95
[2016-08-11 20:00] VITALS: BP 126/82; PULSE 96; RESP 20; TEMP 97.7; O2SAT 98
[2016-08-11] MEDS: FAMOTIDINE 20 MG TAB PO SCH (20:47)
[2016-08-11] MEDS: PRAVASTATIN SOD 40 MG TAB PO SCH (20:48)
[2016-08-12] VITALS: BP 136/90; PULSE 98; RESP 20; TEMP 98.7; O2SAT 95
[2016-08-12 07:36] LABS: BICARBONATE 25.6 MEQ/L (21.0-32.0)
[2016-08-12 08:00] VITALS: BP 129/86; PULSE 102; RESP 20; TEMP 97.9; O2SAT 97
[2016-08-12] MEDS: CALCIUM ACETATE 667 MG CAP PO SCH ×3 (08:24→17:57)
[2016-08-12] MEDS: TAMSULOSIN HCL 0.4 MG CAP PO SCH (08:24)
[2016-08-12] MEDS: HEPARIN SODIUM - SQ 10,000 UNITS/ML VIAL SQ SCH ×2 (08:24→20:45)
[2016-08-12] MEDS: DOCUSATE SODIUM 100 MG CAP PO SCH ×2 (08:24→20:44)
[2016-08-12] MEDS: METOPROLOL TARTRATE 25 MG TAB PO SCH ×2 (08:24→20:44)
[2016-08-12] MEDS: NYSTATIN SUSP 500,000 U/5 ML CUP SWISH-SWAL SCH ×4 (08:25→20:46)
[2016-08-12] MEDS: SODIUM CHLORIDE 0.9% FLUSH 5 ML FLUSH IV FLUSH SCH ×2 (08:25→20:46)
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
[2016-08-12 12:00] VITALS: BP 130/74; PULSE 98; RESP 20; TEMP 98.1; O2SAT 96
[2016-08-12 16:00] VITALS: BP 121/68; PULSE 90; RESP 20; TEMP 97; O2SAT 98
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
[2016-08-12 20:00] VITALS: BP 119/83; PULSE 94; RESP 20; TEMP 98.6; O2SAT 96
[2016-08-12] MEDS: PRAVASTATIN SOD 40 MG TAB PO SCH (20:45)
[2016-08-12] MEDS: FAMOTIDINE 20 MG TAB PO SCH ×2 (20:45→20:51)
[2016-08-13] VITALS: BP 104/74; PULSE 90; RESP 20; TEMP 98.8; O2SAT 99
[2016-08-13 07:46] VITALS: BP 114/86; PULSE 93; RESP 18; TEMP 97.8; O2SAT 99
[2016-08-13] MEDS: CALCIUM ACETATE 667 MG CAP PO SCH ×3 (09:00→17:14)
[2016-08-13] MEDS: AZITHROMYCIN 600 MG TAB PO SCH (09:56)
[2016-08-13] MEDS: DOCUSATE SODIUM 100 MG CAP PO SCH ×2 (09:56→20:25)
[2016-08-13] MEDS: NYSTATIN SUSP 500,000 U/5 ML CUP SWISH-SWAL SCH ×4 (09:56→20:22)
[2016-08-13] MEDS: METOPROLOL TARTRATE 25 MG TAB PO SCH ×2 (09:56→20:22)
[2016-08-13] MEDS: TAMSULOSIN HCL 0.4 MG CAP PO SCH (09:56)
[2016-08-13] MEDS: HEPARIN SODIUM - SQ 10,000 UNITS/ML VIAL SQ SCH ×2 (09:57→20:27)
[2016-08-13] MEDS: SODIUM CHLORIDE 0.9% FLUSH 5 ML FLUSH IV FLUSH SCH ×2 (09:58→20:26)
--- NOTE | 2016-08-13 10:15 | PQ ---
Physician Query Response Document PATIENT: DAKOTAH SHARMA : 1975 ADMIT DATE: 06/28/2016 10:30 PM DISCH DATE: RESPONDING PROVIDER #: sona QUERY TEXT: Clinical Significance The diagnosis documented below requires documentation to state the clinical significance: Vocal Cord Edema Please respond and also state in your next progress note whether the condition is: -- Clinically insignificant -- Clinically significant, and please also state why it is clinically significant -- Unable to determine clinical significance -- Other, please specify The patient's Clinical Indicators include: According to progress note dated 07/14/15: Patient's voice remains hoarse and only whispers. Query created by: Lana Shearer on 08/10/2016 9:49 AM RESPONSE TEXT: Hoarseness is from edema/ laryngitis from intubation. Clinically insignificant. Patient may need outp atient ENT follow up if symptoms persist. QUERY TEXT: HIV Clarification and Associated Conditions HIV (Human immunodeficiency virus) is documented in the medical record. Please specify the type Such as: -- Acquired immune deficiency syndrome [AIDS] -- PJPN-vasysap-jxpxebo complex [ARC] -- Symptomatic -- Asymptomatic -- With current or previous HIV-related condition (please specify related condition) -- Exposure to HIV -- Inconclusive serologic evidence of HIV -- Other, please specify Also please include any associated conditions, if applicable. The patient's Clinical Indicators include: Normal CD4 count is between 500 -1500. AIDS CD4 reference range is 200 or less. According to infecti ous disease progress note dated 07/06/16: HIV, advanced AIDS , CD4 < 20. Query created by: Lana Shearer on 08/10/2016 10:22 AM RESPONSE TEXT: HIV, Advanced AIDS with CD4 count < 20. No clinical symptoms from AIDS during this admission. Prophyl axis given. QUERY TEXT: Anemia Type Anemia is documented in the Medical Record. Please specify the cause (includes suspected or probable cause) Such as: -- Due to acute blood loss -- Due to chronic blood loss -- Due to iron deficiency -- Due to postoperative blood loss -- Due to chronic disease -- Other, please specify The patient's Clinical Indicators include: According to the progress note on 08/08/16 : Anemia: Related to above and renal failure. Patient has h ad multiple transfusion. - H - Epogen per nephrology. 2/3 hemoglobin dropped down to 6.8. Patient status post infusion of 2 units of packed blood cells. No obvious signs of bleeding. Continue to monitor H 2/4 stable at 9.2. Continue to monitor CBC. No signs of bleeding. Getting Epogen as per nephrology . Query created by: Lana Shearer on 08/10/2016 10:52 AM RESPONSE TEXT: Anemia - likely due to chronic disease (kidney disease, HIV). Electronically signed by: Taco Collins DO 08/13/2016 10:11 AM
[2016-08-13 12:00] VITALS: BP 117/79; PULSE 89; RESP 18; TEMP 97.7; O2SAT 97
[2016-08-13 16:00] VITALS: BP 121/83; PULSE 83; RESP 17; TEMP 97.9; O2SAT 98
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
[2016-08-13 18:54] LABS: POTASSIUM 5.3 MEQ/L (3.5-5.1)
[2016-08-13 20:00] VITALS: BP 124/81; PULSE 89; RESP 20; TEMP 96.9; O2SAT 99
[2016-08-13] MEDS: FAMOTIDINE 20 MG TAB PO SCH (20:22)
[2016-08-13] MEDS: PRAVASTATIN SOD 40 MG TAB PO SCH (20:22)
[2016-08-13] MEDS: ACETAMINOPHEN 325 MG TAB PO PRN (20:22)
[2016-08-13] MEDS: oxyCODONE/ACETAMINOPHEN 5 MG/325 MG TAB PO PRN (22:10)
[2016-08-14] VITALS: BP 101/66; PULSE 84; RESP 20; TEMP 96.5; O2SAT 99
[2016-08-14] MEDS: ACETAMINOPHEN 325 MG TAB PO PRN ×4 (02:44→18:48)
[2016-08-14 07:01] LABS: AUTOMATED NEUTROPHIL # 2.1 TH/MM3 (1.8-7.7); BASOPHIL % 0.9 % (0.0-2.0); EOSINOPHIL # 0.1 TH/MM3 (0-0.4); EOSINOPHIL % 2.6 % (0.0-4.0); HEMATOCRIT 32.5 % (39.0-51.0); LYMPH % 33.8 % (9.0-44.0); LYMPHOCYTE # 1.6 TH/MM3 (1.0-4.8); MEAN CELL VOLUME 84.9 FL (80.0-100.0); MEAN CORPUSCULAR HEMOGLOBIN 28.3 PG (27.0-34.0); MEAN CORPUSCULAR HGB CONC 33.4 % (32.0-36.0); MONO % 18.5 % (0.0-8.0); NEUT % 44.2 % (16.0-70.0); PLATELET COUNT 143 TH/MM3 (150-450); RED BLOOD COUNT 3.83 MIL/MM3 (4.50-5.90); RED CELL DISTRIBUTION WIDTH 16.8 % (11.6-17.2); WHITE BLOOD COUNT 4.8 TH/MM3 (4.0-11.0)
[2016-08-14 07:03] LABS: HEMO FLAGS AUTO DIFF
[2016-08-14 07:07] LABS: APTT (PATIENT) 32.2 SEC (24.3-30.1); PROTHROMBIN TIME - PATIENT 11.5 SEC (9.8-11.6)
[2016-08-14 07:34] LABS: BICARBONATE 22.7 MEQ/L (21.0-32.0)
[2016-08-14] MEDS: SODIUM CHLORIDE 0.9% FLUSH 5 ML FLUSH IV FLUSH SCH ×2 (07:57→21:00)
[2016-08-14] MEDS: NYSTATIN SUSP 500,000 U/5 ML CUP SWISH-SWAL SCH ×4 (07:58→21:59)
[2016-08-14] MEDS: HEPARIN SODIUM - SQ 10,000 UNITS/ML VIAL SQ SCH ×2 (07:59→22:01)
[2016-08-14 08:00] VITALS: BP 104/65; PULSE 80; RESP 17; TEMP 96.2; O2SAT 98
[2016-08-14 08:02] LABS: EOSINOPHILS 5 % (0-4); METAMYELOCYTES 2 % (0-1); MYELOCYTES 1 % (0-0); NEUTROPHIL # MANUAL DIFF 2.9 TH/MM3 (1.8-7.7); PLATELET ESTIMATE SMEAR LOW (NORMAL); POLYS (SEG NEUTROPHILS) 57 % (16-70); SCAN/DIFF FINAL DIFF MANUAL; WBC DIFF SAMPLE 100
[2016-08-14 08:03] LABS: PLATELET MORPHOLOGY NORMAL (NORMAL); TEARDROP RBCS 1+ (NORMAL)
[2016-08-14] MEDS: METOPROLOL TARTRATE 25 MG TAB PO SCH ×2 (09:00→21:54)
[2016-08-14] MEDS: TAMSULOSIN HCL 0.4 MG CAP PO SCH (09:00)
[2016-08-14] MEDS: DOCUSATE SODIUM 100 MG CAP PO SCH ×2 (09:00→21:00)
[2016-08-14] MEDS: CALCIUM ACETATE 667 MG CAP PO SCH ×3 (09:00→18:00)
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
[2016-08-14] MEDS: SODIUM CHLOR 0.9% 1000 ML INJ 1,000 ML IV PRN ×2 (12:02)
[2016-08-14] MEDS: EPOETIN ALFA 10,000 UNITS/ML VIAL IV PRN (12:04)
[2016-08-14] MEDS: GENTAMICIN SULFATE (DIALYSIS USE ONLY) 20 MG/2 ML VIAL IV PRN (12:04)
[2016-08-14] MEDS: SODIUM CHLORIDE 0.9% FLUSH 5 ML FLUSH IVF PRN (12:05)
[2016-08-14] MEDS: HEPARIN SODIUM - IV 10,000 UNITS/10 ML VIAL PRN (12:05)
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
[2016-08-14 16:00] VITALS: BP 116/70; PULSE 104; RESP 17; TEMP 96.6; O2SAT 98
--- NOTE | 2016-08-14 18:16 | PQ ---
Physician Query Response Document PATIENT: DAKOTAH SHARMA : 1975 ADMIT DATE: 06/28/2016 10:30 PM DISCH DATE: RESPONDING PROVIDER #: sona QUERY TEXT: HIV Clarification and Associated Conditions HIV (Human immunodeficiency virus) is documented in the medical record. Please specify the type Such as: -- Acquired immune deficiency syndrome [AIDS] -- KRMN-[id number]-scsbrsg complex [ARC] -- Symptomatic -- Asymptomatic -- With current or previous HIV-related condition (please specify related condition) -- Exposure to HIV -- Inconclusive serologic evidence of HIV -- Other, please specify Also please include any associated conditions, if applicable. The patient's Clinical Indicators include: Normal CD4 count is between 500 -1500. AIDS CD4 reference range is 200 or less. According to infecti ous disease progress note dated 07/06/16: HIV, advanced AIDS , CD4 < 20. DX can not state HIV/Advance AIDS. HIV or AIDS? Query created by: Lana Shearer on 08/14/2016 4:14 PM RESPONSE TEXT: HIV, Advanced AIDS with CD4 < 20. Asymptomatic Electronically signed by: Taco Collins DO 08/14/2016 6:12 PM
[2016-08-14 20:00] VITALS: BP 119/75; PULSE 93; RESP 18; TEMP 96.8; O2SAT 99
[2016-08-14] MEDS: FAMOTIDINE 20 MG TAB PO SCH (21:54)
[2016-08-14] MEDS: PRAVASTATIN SOD 40 MG TAB PO SCH (21:54)
[2016-08-14] MEDS: oxyCODONE/ACETAMINOPHEN 5 MG/325 MG TAB PO PRN (23:49)
[2016-08-15] VITALS: BP 112/67; PULSE 94; RESP 18; TEMP 96.7; O2SAT 97
[2016-08-15 07:38] LABS: BICARBONATE 24.6 MEQ/L (21.0-32.0)
[2016-08-15 07:40] LABS: POTASSIUM 4.6 MEQ/L (3.5-5.1)
[2016-08-15 08:00] VITALS: BP 117/67; PULSE 88; RESP 18; TEMP 97.5; O2SAT 97
[2016-08-15] MEDS: SODIUM CHLORIDE 0.9% FLUSH 5 ML FLUSH IV FLUSH SCH ×2 (09:00→22:55)
[2016-08-15] MEDS: CALCIUM ACETATE 667 MG CAP PO SCH ×3 (09:00→17:17)
[2016-08-15] MEDS: METOPROLOL TARTRATE 25 MG TAB PO SCH ×2 (10:16→22:54)
[2016-08-15] MEDS: DOCUSATE SODIUM 100 MG CAP PO SCH ×2 (10:17→22:54)
[2016-08-15] MEDS: NYSTATIN SUSP 500,000 U/5 ML CUP SWISH-SWAL SCH ×4 (10:17→22:54)
[2016-08-15] MEDS: TAMSULOSIN HCL 0.4 MG CAP PO SCH (10:17)
[2016-08-15] MEDS: HEPARIN SODIUM - SQ 10,000 UNITS/ML VIAL SQ SCH (10:17)
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
[2016-08-15 12:00] VITALS: BP 123/76; PULSE 92; RESP 18; TEMP 97.9; O2SAT 98
[2016-08-15 16:00] VITALS: BP 117/70; PULSE 88; RESP 19; TEMP 98.5; O2SAT 99
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
[2016-08-15 20:00] VITALS: BP 129/74; PULSE 98; RESP 20; TEMP 97.6; O2SAT 99
[2016-08-15] MEDS: PRAVASTATIN SOD 40 MG TAB PO SCH (22:54)
[2016-08-15] MEDS: FAMOTIDINE 20 MG TAB PO SCH (22:54)
[2016-08-15] MEDS: ACETAMINOPHEN 325 MG TAB PO PRN (22:55)
[2016-08-16] VITALS: BP 117/66; PULSE 93; RESP 18; TEMP 98.6; O2SAT 96
[2016-08-16 06:25] LABS: BICARBONATE 23.2 MEQ/L (21.0-32.0)
[2016-08-16 06:41] LABS: POTASSIUM 4.7 MEQ/L (3.5-5.1)
[2016-08-16 08:00] VITALS: BP 123/79; PULSE 86; RESP 19; TEMP 97; O2SAT 96
[2016-08-16] MEDS: DOCUSATE SODIUM 100 MG CAP PO SCH ×2 (08:13→21:08)
[2016-08-16] MEDS: SODIUM CHLORIDE 0.9% FLUSH 5 ML FLUSH IV FLUSH SCH ×2 (08:13→21:08)
[2016-08-16] MEDS: NYSTATIN SUSP 500,000 U/5 ML CUP SWISH-SWAL SCH ×4 (08:13→21:08)
[2016-08-16] MEDS: CALCIUM ACETATE 667 MG CAP PO SCH ×3 (08:13→18:09)
[2016-08-16] MEDS: TAMSULOSIN HCL 0.4 MG CAP PO SCH (08:13)
[2016-08-16] MEDS: METOPROLOL TARTRATE 25 MG TAB PO SCH ×2 (08:13→21:08)
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
[2016-08-16] MEDS ORDERED: LIDOCAINE 1%/EPINEPHrine 1:100,000 SOLN 20 ML VIAL ONE (11:15)
[2016-08-16] MEDS ORDERED: MIDAZOLAM HCL 5 MG/5 ML VIAL ONE (11:29)
[2016-08-16] MEDS ORDERED: fentaNYL CITRATE 250 MCG/5 ML AMP ONE (11:30)
[2016-08-16] MEDS ORDERED: THROMBIN (TOPICAL) 5,000 UNIT VIAL ONE (11:50)
[2016-08-16 12:00] VITALS: BP 125/84; PULSE 86; RESP 20; TEMP 97.7; O2SAT 100
--- NOTE | 2016-08-16 12:09 | PD.RAD ---
Post CT Procedure Prog Note Pre Procedure Diagnosis: (1) Acute kidney injury Post Procedure Diagnosis: (1) Acute kidney injury Procedure Date: Aug 16, 2016 Supervising Radiologist: Clarence Bridges JR Proceduralist/Assist: Fina Connell RT(R)(CT) Anesthesia: Conscious Sedation Plan of Activity Patient to Unit: ROPU Patient Condition: Good See PACS Report for procedural detail/treatment Biopsy Imaging Guidance: CT Side: Right Biopsy Procedure: Kidney Specimen: Core Biopsy Findings: Core biopsy of right kidney for function. Two good samples obtained. Gelfoam/ thrombin utilized. No signs of bleeding on post CT. Jr. Cyrus,Clarence Liu MD Aug 16, 2016 12:09
[2016-08-16] MEDS: GENTAMICIN SULFATE (DIALYSIS USE ONLY) 20 MG/2 ML VIAL IV PRN (12:45)
[2016-08-16] MEDS: SODIUM CHLORIDE 0.9% FLUSH 5 ML FLUSH IVF PRN (12:45)
[2016-08-16] MEDS: SODIUM CHLOR 0.9% 1000 ML INJ 1,000 ML IV PRN ×2 (12:46→12:47)
[2016-08-16] MEDS: EPOETIN ALFA 10,000 UNITS/ML VIAL IV PRN (12:46)
[2016-08-16] MEDS: HEPARIN SODIUM - IV 10,000 UNITS/10 ML VIAL PRN (12:46)
--- NOTE | 2016-08-16 13:43 | RADRPT ---
EXAM DATE/TIME: 08/16/2016 11:44 [place] COMPARISON: No previous studies available for comparison. INDICATIONS : Acute renal failure. SEDATION TIME: 30 minutes BIOPSY SITE: Right MEDICATION(S): 1.) 2 mg midazolam (Versed) IV 2.) 100 mcg fentanyl (Sublimaze) IV DEVICE(S): 1.) 18 gauge BioPince needle MEDICAL HISTORY : HIV. Renal failure, acute. SURGICAL HISTORY : None. ENCOUNTER: Initial ACUITY: 1 day PAIN SCORE: 0/10 LOCATION: Right A total of two core specimen(s) were obtained and sent to the laboratory for pathologic evaluation. PROCEDURE: 1. CT guided renal biopsy. 2. Conscious sedation with continuous EKG and oximetry monitoring. 3. EKG and oximetry remained stable throughout the procedure. Prior to the procedure informed consent was obtained. Any appropriate prior imaging studies were rev iewed. The site was prepped in a sterile fashion. Full sterile technique was used, including cap, mask, selma rile gloves and gown and a large sterile sheet. Hand hygiene and 2% chlorhexidine and/or betadine/al cohol prep was utilized per protocol for cutaneous antisepsis. The skin and subcutaneous tissues wer e infiltrated with local anesthetic solution. With CT guidance the lower pole of the right kidney was localized. A 15 gauge coaxial needle was pass ed via right posterior oblique approach into the retroperitoneum with the tip situated just proximal to the cortex of the lower pole of the right kidney. A core sample was obtained with a BioPince needl e. Limited glomeruli were grossly seen in the sample therefore a second sample was obtained in a gabby lar fashion. Gelfoam and thrombin slurry was utilized. Adequate hemostasis was obtained with compress ion at the puncture site. Follow-up CT scan reveals no hemorrhage. The patient tolerated the procedure well and there were no complications. The patient was returned to the Radiology Outpatient Unit in stable condition. CONCLUSION: Uncomplicated CT guided renal biopsy biopsy. Clarence Bridges Jr., MD on August 16, 2016 at 13:39 Board Certified Radiologist. This report was verified electronically.
[2016-08-16 16:00] VITALS: BP 131/73; PULSE 87; RESP 20; TEMP 97.6; O2SAT 97
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
[2016-08-16] MEDS: ACETAMINOPHEN 325 MG TAB PO PRN (18:09)
[2016-08-16 20:00] VITALS: BP 105/65; PULSE 89; RESP 17; TEMP 96; O2SAT 98
[2016-08-16] MEDS: FAMOTIDINE 20 MG TAB PO SCH (21:08)
[2016-08-16] MEDS: PRAVASTATIN SOD 40 MG TAB PO SCH (21:08)
[2016-08-17] VITALS: BP 120/74; PULSE 77; RESP 17; TEMP 96.5; O2SAT 100
[2016-08-17 05:14] LABS: HEMATOCRIT 31.3 % (39.0-51.0); MEAN CELL VOLUME 82.6 FL (80.0-100.0); MEAN CORPUSCULAR HEMOGLOBIN 28.3 PG (27.0-34.0); MEAN CORPUSCULAR HGB CONC 34.3 % (32.0-36.0); PLATELET COUNT 150 TH/MM3 (150-450); RED BLOOD COUNT 3.79 MIL/MM3 (4.50-5.90); RED CELL DISTRIBUTION WIDTH 16.5 % (11.6-17.2); WHITE BLOOD COUNT 4.2 TH/MM3 (4.0-11.0)
[2016-08-17 05:32] LABS: HEMO FLAGS AUTO DIFF
[2016-08-17 07:00] LABS: BANDS 1 % (0-6); EOSINOPHILS 1 % (0-4); METAMYELOCYTES 1 % (0-1); MYELOCYTES 4 % (0-0); NEUTROPHIL # MANUAL DIFF 2.2 TH/MM3 (1.8-7.7); POLYS (SEG NEUTROPHILS) 46 % (16-70); PROMYELOCYTES 1 % (0-0); WBC DIFF SAMPLE 100
[2016-08-17 07:02] LABS: PLATELET ESTIMATE SMEAR NORMAL (NORMAL); PLATELET MORPHOLOGY NORMAL (NORMAL); SCAN/DIFF FINAL DIFF MANUAL
[2016-08-17] MEDS: DOCUSATE SODIUM 100 MG CAP PO SCH ×2 (07:57→20:36)
[2016-08-17] MEDS: METOPROLOL TARTRATE 25 MG TAB PO SCH ×2 (07:57→20:37)
[2016-08-17] MEDS: TAMSULOSIN HCL 0.4 MG CAP PO SCH (07:57)
[2016-08-17] MEDS: NYSTATIN SUSP 500,000 U/5 ML CUP SWISH-SWAL SCH ×4 (07:57→20:37)
[2016-08-17] MEDS: CALCIUM ACETATE 667 MG CAP PO SCH ×3 (07:58→17:39)
[2016-08-17] MEDS: SODIUM CHLORIDE 0.9% FLUSH 5 ML FLUSH IV FLUSH SCH ×2 (07:58→20:41)
[2016-08-17 08:00] VITALS: BP 107/65; PULSE 96; RESP 18; TEMP 97.1; O2SAT 99
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
[2016-08-17 12:00] VITALS: BP 105/65; PULSE 79; RESP 19; TEMP 96.1; O2SAT 98
[2016-08-17 16:00] VITALS: BP 114/68; PULSE 84; RESP 20; TEMP 97.4; O2SAT 99
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
[2016-08-17 20:00] VITALS: BP 121/81; PULSE 75; RESP 17; TEMP 95.8; O2SAT 100
[2016-08-17] MEDS: PRAVASTATIN SOD 40 MG TAB PO SCH (20:37)
[2016-08-17] MEDS: FAMOTIDINE 20 MG TAB PO SCH (20:37)
[2016-08-17] MEDS ORDERED: INSULIN DETEMIR 100 UNITS/ML VIAL SQ SCH (21:00)
[2016-08-18] VITALS: BP 123/82; PULSE 77; RESP 17; TEMP 95.9; O2SAT 100
[2016-08-18 05:08] LABS: AUTOMATED NEUTROPHIL # 2.7 TH/MM3 (1.8-7.7); BASOPHIL % 0.8 % (0.0-2.0); EOSINOPHIL # 0.1 TH/MM3 (0-0.4); EOSINOPHIL % 1.8 % (0.0-4.0); HEMATOCRIT 33.1 % (39.0-51.0); LYMPH % 34.7 % (9.0-44.0); MEAN CELL VOLUME 83.1 FL (80.0-100.0); MEAN CORPUSCULAR HEMOGLOBIN 28.5 PG (27.0-34.0); MEAN CORPUSCULAR HGB CONC 34.3 % (32.0-36.0); MONO % 14.3 % (0.0-8.0); NEUT % 48.4 % (16.0-70.0); PLATELET COUNT 132 TH/MM3 (150-450); RED BLOOD COUNT 3.99 MIL/MM3 (4.50-5.90); WHITE BLOOD COUNT 5.7 TH/MM3 (4.0-11.0)
[2016-08-18 05:19] LABS: HEMO FLAGS AUTO DIFF
[2016-08-18 05:31] LABS: ALKALINE PHOSPHATASE 299 U/L (45-117); TOTAL BILIRUBIN ADULT 0.5 MG/DL (0.2-1.0)
[2016-08-18 05:36] LABS: ALT (GPT) 61 U/L (12-78); ANION GAP 9 MEQ/L (5-15); AST (GOT) 69 U/L (15-37); BICARBONATE 24.1 MEQ/L (21.0-32.0); BLOOD UREA NITROGEN 29 MG/DL (7-18); CHLORIDE 101 MEQ/L (98-107); GLOMERULAR FILTRATION RATE 15 ML/MIN (>89); POTASSIUM 4.7 MEQ/L (3.5-5.1); SODIUM (NA) 134 MEQ/L (136-145)
[2016-08-18] MEDS: CALCIUM ACETATE 667 MG CAP PO SCH ×3 (07:07→16:47)
[2016-08-18 07:26] LABS: BANDS 4 % (0-6); EOSINOPHILS 1 % (0-4); MYELOCYTES 2 % (0-0); NEUTROPHIL # MANUAL DIFF 3.5 TH/MM3 (1.8-7.7); PLATELET ESTIMATE SMEAR LOW (NORMAL); PLATELET MORPHOLOGY NORMAL (NORMAL); POLYS (SEG NEUTROPHILS) 55 % (16-70); SCAN/DIFF FINAL DIFF MANUAL; WBC DIFF SAMPLE 100
[2016-08-18 08:00] VITALS: BP 117/68; PULSE 80; RESP 18; TEMP 96.2; O2SAT 97
[2016-08-18] MEDS: NYSTATIN SUSP 500,000 U/5 ML CUP SWISH-SWAL SCH ×4 (08:56→20:34)
[2016-08-18] MEDS: METOPROLOL TARTRATE 25 MG TAB PO SCH ×2 (09:00→20:34)
[2016-08-18] MEDS: DOCUSATE SODIUM 100 MG CAP PO SCH ×2 (09:00→20:33)
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
[2016-08-18 12:00] VITALS: BP 119/80; PULSE 83; RESP 20; TEMP 97.1; O2SAT 100
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
[2016-08-18 16:00] VITALS: BP 126/81; PULSE 83; RESP 18; TEMP 97.4; O2SAT 95
[2016-08-18] MEDS: TAMSULOSIN HCL 0.4 MG CAP PO SCH (16:49)
[2016-08-18] MEDS: SODIUM CHLORIDE 0.9% FLUSH 5 ML FLUSH IV FLUSH SCH ×2 (16:51→20:33)
[2016-08-18 20:00] VITALS: BP 116/80; PULSE 85; RESP 20; TEMP 97.6; O2SAT 100
[2016-08-18] MEDS: PRAVASTATIN SOD 40 MG TAB PO SCH (20:34)
[2016-08-18] MEDS: FAMOTIDINE 20 MG TAB PO SCH (20:34)
[2016-08-19] VITALS: BP 117/83; PULSE 77; RESP 20; TEMP 97.4; O2SAT 100
[2016-08-19 06:38] LABS: BICARBONATE 22.1 MEQ/L (21.0-32.0)
[2016-08-19 06:43] LABS: POTASSIUM 4.7 MEQ/L (3.5-5.1)
[2016-08-19] MEDS: CALCIUM ACETATE 667 MG CAP PO SCH ×3 (07:06→12:58)
[2016-08-19 08:00] VITALS: BP 103/68; PULSE 86; RESP 18; TEMP 96.5; O2SAT 98
[2016-08-19] MEDS: DOCUSATE SODIUM 100 MG CAP PO SCH ×2 (08:12→20:51)
[2016-08-19] MEDS: NYSTATIN SUSP 500,000 U/5 ML CUP SWISH-SWAL SCH ×4 (08:12→20:51)
[2016-08-19] MEDS: TAMSULOSIN HCL 0.4 MG CAP PO SCH (08:12)
[2016-08-19] MEDS: METOPROLOL TARTRATE 25 MG TAB PO SCH ×2 (08:12→20:51)
[2016-08-19] MEDS: SODIUM CHLORIDE 0.9% FLUSH 5 ML FLUSH IV FLUSH SCH ×2 (08:14→20:51)
[2016-08-19 12:00] VITALS: BP 110/72; PULSE 84; RESP 20; TEMP 97.1; O2SAT 99
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
[2016-08-19 16:00] VITALS: BP 114/79; PULSE 80; RESP 20; TEMP 95.5; O2SAT 100
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
[2016-08-19 20:00] VITALS: BP 105/68; PULSE 92; RESP 20; TEMP 97.8; O2SAT 100
[2016-08-19] MEDS: FAMOTIDINE 20 MG TAB PO SCH (20:51)
[2016-08-19] MEDS: PRAVASTATIN SOD 40 MG TAB PO SCH (20:51)
[2016-08-20] VITALS: BP 100/64; PULSE 89; RESP 20; TEMP 98.2; O2SAT 99
[2016-08-20 07:02] LABS: POTASSIUM 4.7 MEQ/L (3.5-5.1)
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
[2016-08-20 08:00] VITALS: BP 136/81; PULSE 78; RESP 18; TEMP 96.2; O2SAT 99
[2016-08-20] MEDS: DOCUSATE SODIUM 100 MG CAP PO SCH ×2 (08:34→20:17)
[2016-08-20] MEDS: CALCIUM ACETATE 667 MG CAP PO SCH ×3 (08:35→17:28)
[2016-08-20] MEDS: NYSTATIN SUSP 500,000 U/5 ML CUP SWISH-SWAL SCH ×4 (08:35→20:17)
[2016-08-20] MEDS: SODIUM CHLORIDE 0.9% FLUSH 5 ML FLUSH IV FLUSH SCH ×2 (08:35→20:18)
[2016-08-20] MEDS: METOPROLOL TARTRATE 25 MG TAB PO SCH ×2 (08:35→20:17)
[2016-08-20] MEDS: TAMSULOSIN HCL 0.4 MG CAP PO SCH (08:35)
[2016-08-20] MEDS: AZITHROMYCIN 600 MG TAB PO SCH (08:37)
[2016-08-20 12:00] VITALS: BP 105/71; PULSE 77; RESP 18; TEMP 96; O2SAT 99
[2016-08-20 16:00] VITALS: BP 109/63; PULSE 77; RESP 18; TEMP 96; O2SAT 18
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
[2016-08-20 20:00] VITALS: BP 107/59; PULSE 80; RESP 21; TEMP 96; O2SAT 98
[2016-08-20] MEDS: FAMOTIDINE 20 MG TAB PO SCH (20:17)
[2016-08-20] MEDS: PRAVASTATIN SOD 40 MG TAB PO SCH (20:17)
[2016-08-20] MEDS: oxyCODONE/ACETAMINOPHEN 5 MG/325 MG TAB PO PRN (21:40)
[2016-08-20 23:25] VITALS: BP 100/68; PULSE 68; RESP 20; TEMP 96.8; O2SAT 96
[2016-08-21 05:31] LABS: BICARBONATE 21.9 MEQ/L (21.0-32.0); POTASSIUM 4.4 MEQ/L (3.5-5.1)
[2016-08-21 08:00] VITALS: BP 106/69; PULSE 81; RESP 14; TEMP 97.5; O2SAT 100
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
[2016-08-21] MEDS: CALCIUM ACETATE 667 MG CAP PO SCH ×3 (09:00→18:00)
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
[2016-08-21] MEDS: METOPROLOL TARTRATE 25 MG TAB PO SCH ×2 (10:07→23:00)
[2016-08-21] MEDS: TAMSULOSIN HCL 0.4 MG CAP PO SCH (10:08)
[2016-08-21] MEDS: DOCUSATE SODIUM 100 MG CAP PO SCH ×2 (10:08→23:00)
[2016-08-21] MEDS: NYSTATIN SUSP 500,000 U/5 ML CUP SWISH-SWAL SCH ×4 (10:08→23:00)
[2016-08-21] MEDS: SODIUM CHLORIDE 0.9% FLUSH 5 ML FLUSH IV FLUSH SCH ×2 (10:08→21:00)
[2016-08-21 12:00] VITALS: BP 115/77; PULSE 76; RESP 14; TEMP 97.4; O2SAT 100
[2016-08-21 16:00] VITALS: BP 104/65; PULSE 84; RESP 14; TEMP 97.4; O2SAT 99
[2016-08-21 20:00] VITALS: BP 113/83; PULSE 78; RESP 20; TEMP 98.2; O2SAT 100
[2016-08-21] MEDS: FAMOTIDINE 20 MG TAB PO SCH (23:00)
[2016-08-21] MEDS: PRAVASTATIN SOD 40 MG TAB PO SCH (23:01)
[2016-08-22 06:56] LABS: POTASSIUM 5.5 MEQ/L (3.5-5.1)
[2016-08-22 08:00] VITALS: BP 112/72; PULSE 85; RESP 18; TEMP 97.3; O2SAT 96
[2016-08-22] MEDS: CALCIUM ACETATE 667 MG CAP PO SCH ×3 (09:00→18:00)
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
[2016-08-22] MEDS: TAMSULOSIN HCL 0.4 MG CAP PO SCH (10:30)
[2016-08-22] MEDS: DOCUSATE SODIUM 100 MG CAP PO SCH ×2 (10:30→21:48)
[2016-08-22] MEDS: SODIUM CHLORIDE 0.9% FLUSH 5 ML FLUSH IV FLUSH SCH ×2 (10:30→21:00)
[2016-08-22] MEDS: METOPROLOL TARTRATE 25 MG TAB PO SCH ×2 (10:30→21:48)
[2016-08-22] MEDS: NYSTATIN SUSP 500,000 U/5 ML CUP SWISH-SWAL SCH ×4 (10:30→21:48)
[2016-08-22 12:00] VITALS: BP 114/75; PULSE 89; RESP 18; TEMP 98.3; O2SAT 97
[2016-08-22 16:00] VITALS: BP 119/86; PULSE 88; RESP 18; TEMP 97.6; O2SAT 97
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
[2016-08-22] MEDS ORDERED: SODIUM POLYSTYRENE SULFONATE SUSP 15 GM/60 ML CUP PO ONE (19:00)
[2016-08-22 20:19] VITALS: BP 117/69; PULSE 99; RESP 18; TEMP 96.5; O2SAT 97
[2016-08-22] MEDS: PRAVASTATIN SOD 40 MG TAB PO SCH (21:48)
[2016-08-22] MEDS: FAMOTIDINE 20 MG TAB PO SCH (21:48)
[2016-08-23 00:15] VITALS: BP 122/83; PULSE 84; RESP 18; TEMP 96.8; O2SAT 98
[2016-08-23 04:00] VITALS: BP 146/74; PULSE 80; RESP 18; TEMP 98.6; O2SAT 96
[2016-08-23 08:00] VITALS: BP 118/72; PULSE 91; RESP 20; TEMP 97.1; O2SAT 98
[2016-08-23] MEDS: CALCIUM ACETATE 667 MG CAP PO SCH ×3 (09:00→16:54)
[2016-08-23] MEDS: TAMSULOSIN HCL 0.4 MG CAP PO SCH (09:03)
[2016-08-23] MEDS: DOCUSATE SODIUM 100 MG CAP PO SCH ×2 (09:04→22:03)
[2016-08-23] MEDS: NYSTATIN SUSP 500,000 U/5 ML CUP SWISH-SWAL SCH ×4 (09:05→22:04)
[2016-08-23] MEDS: SODIUM CHLORIDE 0.9% FLUSH 5 ML FLUSH IV FLUSH SCH ×2 (09:05→22:04)
[2016-08-23] MEDS: METOPROLOL TARTRATE 25 MG TAB PO SCH ×2 (09:12→22:03)
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
[2016-08-23 11:55] VITALS: BP 115/75; PULSE 80; RESP 17; TEMP 98.6; O2SAT 96
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
[2016-08-23 19:55] VITALS: BP 120/79; PULSE 88; RESP 20; TEMP 98.9; O2SAT 100
[2016-08-23] MEDS: FAMOTIDINE 20 MG TAB PO SCH (22:03)
[2016-08-23] MEDS: PRAVASTATIN SOD 40 MG TAB PO SCH (22:03)
[2016-08-23 23:43] VITALS: BP 117/70; PULSE 101; RESP 20; TEMP 98.9; O2SAT 98
[2016-08-24] MEDS: METOPROLOL TARTRATE 25 MG TAB PO SCH ×2 (07:57→20:45)
[2016-08-24] MEDS: TAMSULOSIN HCL 0.4 MG CAP PO SCH (07:58)
[2016-08-24] MEDS: NYSTATIN SUSP 500,000 U/5 ML CUP SWISH-SWAL SCH ×4 (07:58→20:45)
[2016-08-24] MEDS: DOCUSATE SODIUM 100 MG CAP PO SCH ×2 (07:59→20:45)
[2016-08-24 08:00] VITALS: BP 107/65; PULSE 88; RESP 20; TEMP 97.8; O2SAT 96
[2016-08-24] MEDS: SODIUM CHLORIDE 0.9% FLUSH 5 ML FLUSH IV FLUSH SCH ×2 (08:01→20:45)
[2016-08-24] MEDS: CALCIUM ACETATE 667 MG CAP PO SCH ×3 (08:03→18:00)
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
[2016-08-24] MEDS: PENTAMIDINE ISETHIONATE 300 MG NEB SCH (10:03)
[2016-08-24] MEDS: RESP: ALBUTEROL 2.5 MG/IPRATROPIUM 0.5 MG NEB (PRN) INH (10:03)
[2016-08-24 10:05] VITALS: O2SAT 96
[2016-08-24 12:00] VITALS: BP 110/68; PULSE 87; RESP 20; TEMP 97.6; O2SAT 96
[2016-08-24 12:04] LABS: BICARBONATE 20.4 MEQ/L (21.0-32.0); POTASSIUM 4.6 MEQ/L (3.5-5.1)
[2016-08-24 16:00] VITALS: BP 118/72; PULSE 88; RESP 17; TEMP 98.1; O2SAT 95
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
[2016-08-24 20:00] VITALS: BP 117/70; PULSE 79; RESP 20; TEMP 97.6; O2SAT 98
[2016-08-24] MEDS: ACETAMINOPHEN 325 MG TAB PO PRN (20:44)
[2016-08-24] MEDS: PRAVASTATIN SOD 40 MG TAB PO SCH (20:45)
[2016-08-24] MEDS: FAMOTIDINE 20 MG TAB PO SCH (20:45)
[2016-08-25 08:00] VITALS: BP 118/77; PULSE 84; RESP 20; TEMP 98.4; O2SAT 98
[2016-08-25] MEDS: DOCUSATE SODIUM 100 MG CAP PO SCH (09:00)
[2016-08-25] MEDS: CALCIUM ACETATE 667 MG CAP PO SCH ×4 (09:00→17:42)
[2016-08-25] MEDS: TAMSULOSIN HCL 0.4 MG CAP PO SCH (09:51)
[2016-08-25] MEDS: METOPROLOL TARTRATE 25 MG TAB PO SCH (09:51)
[2016-08-25] MEDS: NYSTATIN SUSP 500,000 U/5 ML CUP SWISH-SWAL SCH ×3 (09:51→18:00)
[2016-08-25] MEDS: SODIUM CHLORIDE 0.9% FLUSH 5 ML FLUSH IV FLUSH SCH (09:52)
[2016-08-25] MEDS: ACETAMINOPHEN 325 MG TAB PO PRN (10:53)
[2016-08-25 11:36] LABS: BICARBONATE 20.6 MEQ/L (21.0-32.0)
[2016-08-25 11:38] LABS: POTASSIUM 4.9 MEQ/L (3.5-5.1)
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
[2016-08-25 12:00] VITALS: BP 118/71; PULSE 73; RESP 19; TEMP 96.9; O2SAT 98
[2016-08-25 16:00] VITALS: BP 108/61; PULSE 85; RESP 20; TEMP 98.9; O2SAT 99
[2016-08-25] MEDS ORDERED: TAMS5CAP PO (16:20)
[2016-08-25] MEDS ORDERED: FAMO20TA2 PO (16:20)
[2016-08-25] MEDS ORDERED: AZIT600T PO (16:20)
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
== END 2016-08-25 19:45 | disposition home or self-care (01) | DRG 163 ==
LOC: HOR 21:31 → EEVIPCON 22:30 → NEDA 22:30 → EDBD 22:30 → N03A 23:03 → N07B 07-13 15:30
PROVIDERS: ADMIT Surgery; ATTEND Family Medicine
PROC: 0W9B30Z Drainage of Left Pleural Cavity with Drainage Device, Percutaneous Approach (ICD-10-PCS; 2016-06-28)
PROC: 0W9930Z Drainage of Right Pleural Cavity with Drainage Device, Percutaneous Approach (ICD-10-PCS; 2016-06-28)
PROC: 0BH17EZ Insertion of Endotracheal Airway into Trachea, Via Natural or Artificial Opening (ICD-10-PCS; 2016-06-28)
PROC: 5A1955Z Respiratory Ventilation, Greater than 96 Consecutive Hours (ICD-10-PCS; 2016-06-28)
PROC: 06HM33Z Insertion of Infusion Device into Right Femoral Vein, Percutaneous Approach (ICD-10-PCS; 2016-06-28)
PROC: 30233N1 Transfusion of Nonautologous Red Blood Cells into Peripheral Vein, Percutaneous Approach (ICD-10-PCS; 2016-06-28)
PROC: 03HY32Z Insertion of Monitoring Device into Upper Artery, Percutaneous Approach (ICD-10-PCS; 2016-06-29)
PROC: 30233K1 Transfusion of Nonautologous Frozen Plasma into Peripheral Vein, Percutaneous Approach (ICD-10-PCS; 2016-06-29)
PROC: 30233R1 Transfusion of Nonautologous Platelets into Peripheral Vein, Percutaneous Approach (ICD-10-PCS; 2016-06-29)
PROC: 0W9B40Z Drainage of Left Pleural Cavity with Drainage Device, Percutaneous Endoscopic Approach (ICD-10-PCS; 2016-07-02)
PROC: 0W9940Z Drainage of Right Pleural Cavity with Drainage Device, Percutaneous Endoscopic Approach (ICD-10-PCS; 2016-07-02)
PROC: 0BDP4ZZ Extraction of Left Pleura, Percutaneous Endoscopic Approach (ICD-10-PCS; principal; 2016-07-02 08:56)
PROC: 0W9B30Z Drainage of Left Pleural Cavity with Drainage Device, Percutaneous Approach (ICD-10-PCS; 2016-07-06)
PROC: 05HM33Z Insertion of Infusion Device into Right Internal Jugular Vein, Percutaneous Approach (ICD-10-PCS; 2016-07-20)
PROC: 5A1D60Z (ICD-10-PCS; 2016-07-20)
PROC: 05HM33Z Insertion of Infusion Device into Right Internal Jugular Vein, Percutaneous Approach (ICD-10-PCS; 2016-08-09)
PROC: 0TB03ZX Excision of Right Kidney, Percutaneous Approach, Diagnostic (ICD-10-PCS; 2016-08-16)
DX: S27.2XXA Traumatic hemopneumothorax, initial encounter (principal); B20 Human immunodeficiency virus [HIV] disease; N17.0 Acute kidney failure with tubular necrosis; J96.90 Respiratory failure, unspecified, unspecified whether with hypoxia or hypercapnia; T79.4XXA Traumatic shock, initial encounter; S22.079A Unspecified fracture of T9-T10 vertebra, initial encounter for closed fracture; G93.40 Encephalopathy, unspecified; J15.5 Pneumonia due to Escherichia coli; S21.301A Unspecified open wound of right front wall of thorax with penetration into thoracic cavity, initial encounter; S21.302A Unspecified open wound of left front wall of thorax with penetration into thoracic cavity, initial encounter; E87.2 Acidosis; S22.32XA Fracture of one rib, left side, initial encounter for closed fracture; S27.322A Contusion of lung, bilateral, initial encounter; D62 Acute posthemorrhagic anemia; J38.4 Edema of larynx; S51.001A Unspecified open wound of right elbow, initial encounter; R49.0 Dysphonia; K21.9 Gastro-esophageal reflux disease without esophagitis; R33.9 Retention of urine, unspecified; S00.03XA Contusion of scalp, initial encounter; S10.93XA Contusion of unspecified part of neck, initial encounter; R20.9 Unspecified disturbances of skin sensation; N29 Other disorders of kidney and ureter in diseases classified elsewhere; G47.00 Insomnia, unspecified; I12.9 Hypertensive chronic kidney disease with stage 1 through stage 4 chronic kidney disease, or unspecified chronic kidney disease; F17.210 Nicotine dependence, cigarettes, uncomplicated; N18.9 Chronic kidney disease, unspecified; E78.5 Hyperlipidemia, unspecified; D63.1 Anemia in chronic kidney disease; J04.0 Acute laryngitis; D63.8 Anemia in other chronic diseases classified elsewhere; E83.39 Other disorders of phosphorus metabolism; J98.01 Acute bronchospasm; R06.1 Stridor; Z91.14 Patient's other noncompliance with medication regimen; X95.9XXA Assault by unspecified firearm discharge, initial encounter
CPT/HCPCS: 31500; 32551; 36430; 36556; 36580; 36600; 43753; 50200; 70450; 71010; 71260; 72125; 72128; 72131; 73070; 74000; 74177; 76705; 76775; 76937; 77001; 77012; 80048; 80053; 80069; 80074; 80076; 80202; 80301; 80320; 81001; 82040; 82043; 82140; 82435; 82565; 82805; 82947; 82948; 83605; 83735; 83935; 84100; 84132; 84155; 84165; 84295; 84300; 84520; 85007; 85014; 85018; 85025; 85027; 85379; 85610; 85730; 86038; 86355; 86357; 86359; 86360; 86403; 86850; 86900; 86901; 86920; 86927; 87040; 87070; 87077; 87116; 87186; 87205; 87641; 90471; 90935; 93005; 94002; 94003; 94150; 94640; 94642; 94664; 94667; 94668; 95819; 96374; 96375; 96376; 99291; A0431-QM-SH; A0436-QM-SH; C1752; C1769; C9399; G0390; G0479; J0131; J0330; J0690; J0696; J1100; J1580; J1644; J1650; J1940; J2060; J2250; J2270; J2370; J2405; J2543; J2545; J2930; J3010; J3370; J3475; J7030; J7040; J7050; P9016; P9017; P9031; P9047; Q4081; Q9967